=== PATIENT | female | born 1995 | race Caucasian/White ===

== ENCOUNTER 2017-11-06 18:01 | Emergency (ER) | payer OTHER ==
[~2017-11-06] VITALS: Ht 157.5 cm; Wt 121.6 kg
[~2017-11-06 18:01] MED LIST: AC500T PO; ACHD5005 PO; AMOX500C2 PO; BACL10TA PO; BUTA-249 PO; CEFD300C PO; CYCL10TA9 PO; DCS100C PO; DIPH25TA82 PO; FERR-57 PO; GUAI120L27 PO; HYDR-3812 PO; HYDR1TAB PO; IBP600T1 PO; IRON1TAB94 PO; METO-354 PO; ORTHOTRYCYCLINE; OXYC-12 PO; OXYC20TA63 PO; PRD20T PO; PREN1TAB39 PO; SULF1TAB35 PO
--- OUTSIDE RECORDS SUMMARY | 2017-11-06 18:07 | XMS REPORT | Continuity of Care Document ---
Author Author [facility] Address Unknown Phone Unavailable Allergies Active Description Code Type Severity Reaction Onset Reported/Identified Relationship to Patient Clinical Status Yes No Known Drug Allergies [id number] Drug Allergy Unknown N/A 04/03/2008 Yes [id number] (POLLEN EXTRACTS) [id number] (POLLEN EXTRACTS) Mild N/A Medications There is no data. Problems Date Dx Coded Attending Type Code Diagnosis Diagnosed By 10/29/2008 STANLEY CERVANTES APRN 462 PHARYNGITIS ACUTE 10/29/2008 STANLEY CERVANTES APRN 465.9 UPPER RESPIRATORY INFECTION 10/29/2008 462 PHARYNGITIS ACUTE 10/29/2008 465.9 UPPER RESPIRATORY INFECTION 10/29/2008 462 PHARYNGITIS ACUTE 10/29/2008 465.9 UPPER RESPIRATORY INFECTION 10/29/2008 462 PHARYNGITIS ACUTE 10/29/2008 465.9 UPPER RESPIRATORY INFECTION 10/29/2008 LUANN BENNETT APRN A 462 PHARYNGITIS ACUTE 10/29/2008 LUANN BENNETT APRN A 465.9 UPPER RESPIRATORY INFECTION 10/29/2008 PERDOMO DO, TRAVIS K 462 PHARYNGITIS ACUTE 10/29/2008 PERDOMO DO, TRAVIS K 465.9 UPPER RESPIRATORY INFECTION 10/29/2008 PERDOMO DO, TRAVIS K 462 PHARYNGITIS ACUTE 10/29/2008 PERDOMO DO, TRAVIS K 465.9 UPPER RESPIRATORY INFECTION 10/29/2008 PERDOMO DO, TRAVIS K 462 PHARYNGITIS ACUTE 10/29/2008 PERDOMO DO, TRAVIS K 465.9 UPPER RESPIRATORY INFECTION 10/29/2008 PERDOMO DO, TRAVIS K 462 PHARYNGITIS ACUTE 10/29/2008 PERDOMO DO, TRAVIS K 465.9 UPPER RESPIRATORY INFECTION 10/29/2008 HECTOR JETT MD 462 PHARYNGITIS ACUTE 10/29/2008 HECTOR JETT MD 465.9 UPPER RESPIRATORY INFECTION 10/29/2008 PERDOMO DO, TRAVIS K 462 PHARYNGITIS ACUTE 10/29/2008 PERDOMO DO, TRAVIS K 465.9 UPPER RESPIRATORY INFECTION 10/29/2008 PERDOMO DO, TRAVIS K 462 PHARYNGITIS ACUTE 10/29/2008 PERDOMO DO, TRAVIS K 465.9 UPPER RESPIRATORY INFECTION 10/29/2008 OSCAR TONG, ANNA N 462 PHARYNGITIS ACUTE 10/29/2008 OSCAR TONG, ANNA N 465.9 UPPER RESPIRATORY INFECTION 10/29/2008 OSCAR TONG, ANNA N 462 PHARYNGITIS ACUTE 10/29/2008 OSCAR TONG, ANNA N 465.9 UPPER RESPIRATORY INFECTION 10/29/2008 PERDOMO DO, TRAVIS K 462 PHARYNGITIS ACUTE 10/29/2008 PERDOMO DO, TRAVIS K 465.9 UPPER RESPIRATORY INFECTION 10/29/2008 OSCAR TONG, ANNA N 462 PHARYNGITIS ACUTE 10/29/2008 OSCAR TONG, ANNA N 465.9 UPPER RESPIRATORY INFECTION 10/29/2008 SABRINA STOKER ERECTOR, LUANN A 462 PHARYNGITIS ACUTE 10/29/2008 SABRINA STOKER ERECTOR, LUANN A 465.9 UPPER RESPIRATORY INFECTION 10/29/2008 SABRINA STOKER ERECTOR, LUANN A 462 PHARYNGITIS ACUTE 10/29/2008 SABRINA STOKER ERECTOR, LUANN A 465.9 UPPER RESPIRATORY INFECTION 10/29/2008 PERDOMO DO, TRAVIS K 462 PHARYNGITIS ACUTE 10/29/2008 PERDOMO DO, TRAVIS K 465.9 UPPER RESPIRATORY INFECTION 10/29/2008 PERDOMO DO, TRAVIS K 462 PHARYNGITIS ACUTE 10/29/2008 PERDOMO DO, TRAVIS K 465.9 UPPER RESPIRATORY INFECTION 10/29/2008 SIERRA STOKER ERECTOR, CHANG R 462 PHARYNGITIS ACUTE 10/29/2008 ESQUIVEL STOKER ERECTOR, CHANG R 465.9 UPPER RESPIRATORY INFECTION 10/29/2008 PERDOMO DO, TRAVIS K 462 PHARYNGITIS ACUTE 10/29/2008 PERDOMO DO, TRAVIS K 465.9 UPPER RESPIRATORY INFECTION 01/14/2009 STANLEY CERVANTES APRN V20.2 Preventive Medicine New Patient Evaluation Childhood -01/14/2009 V20.2 Preventive Medicine New Patient Evaluation Childhood -01/14/2009 V20.2 Preventive Medicine New Patient Evaluation Childhood -01/14/2009 V20.2 Preventive Medicine New Patient Evaluation Childhood -01/14/2009 LUANN BENNETT APRN V20.2 Preventive Medicine New Patient Evaluation Childhood -01/14/2009 TRAVIS PERDOMO DO K V20.2 Preventive Medicine New Patient Evaluation Childhood -01/14/2009 TRAVIS PERDOMO DO K V20.2 Preventive Medicine New Patient Evaluation Childhood 03-2901/14/2009 TRAVIS PERDOMO DO K V20.2 PREVENTIVE MEDICINE NEW PATIENT EVALUATION CHILDHOOD 03-2901/14/2009 TRAVIS PERDOMO DO K V20.2 PREVENTIVE MEDICINE NEW PATIENT EVALUATION CHILDHOOD 03-2901/14/2009 HECTOR JETT MD V20.2 PREVENTIVE MEDICINE NEW PATIENT EVALUATION CHILDHOOD 03-2901/14/2009 TRAVIS PERDOMO DO V20.2 PREVENTIVE MEDICINE NEW PATIENT EVALUATION CHILDHOOD 03-2901/14/2009 TRAVIS PREDOMO DO K V20.2 PREVENTIVE MEDICINE NEW PATIENT EVALUATION CHILDHOOD 03-2901/14/2009 ANNA MOORE MD V20.2 PREVENTIVE MEDICINE NEW PATIENT EVALUATION CHILDHOOD 03-2901/14/2009 ANNA MOORE MD V20.2 PREVENTIVE MEDICINE NEW PATIENT EVALUATION CHILDHOOD 03-2901/14/2009 TRAVIS PERDOMO DO K V20.2 PREVENTIVE MEDICINE NEW PATIENT EVALUATION CHILDHOOD 03-2901/14/2009 ANNA MOORE MD N V20.2 PREVENTIVE MEDICINE NEW PATIENT EVALUATION CHILDHOOD -01/14/2009 LUANN BENNETT APRN V20.2 PREVENTIVE MEDICINE NEW PATIENT EVALUATION CHILDHOOD 03-2901/14/2009 LUANN BENNETT APRN V20.2 PREVENTIVE MEDICINE NEW PATIENT EVALUATION CHILDHOOD 03-2901/14/2009 TRAVIS PERDOMO DO K V20.2 PREVENTIVE MEDICINE NEW PATIENT EVALUATION CHILDHOOD 03-2901/14/2009 TRAVIS PERDOMO DO K V20.2 PREVENTIVE MEDICINE NEW PATIENT EVALUATION CHILDHOOD 03-2901/14/2009 CHANG ESQUIVEL APRN V20.2 PREVENTIVE MEDICINE NEW PATIENT EVALUATION CHILDHOOD -01/14/2009 TRAVIS PERDOMO DO K V20.2 PREVENTIVE MEDICINE NEW PATIENT EVALUATION CHILDHOOD -06/16/2009 STANLEY CERVANTES APRN V25.01 CONTRACEPTION, ORAL / CONTROL 06/16/2009 HELEN STANLEY GREENBERG V72.3 GYNECOLOGICAL EXAMINATION 06/16/2009 V25.01 CONTRACEPTION , ORAL / CONTROL 06/16/2009 V72.3 GYNECOLOGICAL EXAMINATION 06/16/2009 V25.01 CONTRACEPTION , ORAL / CONTROL 06/16/2009 V72.3 GYNECOLOGICAL EXAMINATION 06/16/2009 V25.01 CONTRACEPTION , ORAL / CONTROL 06/16/2009 V72.3 GYNECOLOGICAL EXAMINATION 06/16/2009 SABRINACHUCHO GREENBERG, LUANN A V25.01 CONTRACEPTION, ORAL / CONTROL 06/16/2009 SABRINA APRN, LUANN A V72.3 GYNECOLOGICAL EXAMINATION 06/16/2009 PERDOMO DO TRAVIS K V25.01 CONTRACEPTION, ORAL / CONTROL 06/16/2009 PERDOMO DO, TRAVIS K V72.3 GYNECOLOGICAL EXAMINATION 06/16/2009 PERDOMO DO TRAVIS K V25.01 CONTRACEPTION, ORAL / CONTROL 06/16/2009 PERDOMO DO TRAVIS K V72.3 GYNECOLOGICAL EXAMINATION 06/16/2009 PERDOMO DO TRAVIS K V25.01 CONTRACEPTION, ORAL / CONTROL 06/16/2009 PERDOMO DO, TRAVIS K V72.3 GYNECOLOGICAL EXAMINATION 06/16/2009 PERDOMO DO, TRAVIS K V25.01 CONTRACEPTION, ORAL / CONTROL 06/16/2009 PERDOMO DO TRAVIS K V72.3 GYNECOLOGICAL EXAMINATION 06/16/2009 JOHNIE TONG, HECTOR V25.01 CONTRACEPTION, ORAL / CONTROL 06/16/2009 JOHNIE TONG, HECTOR V72.3 GYNECOLOGICAL EXAMINATION 06/16/2009 PERDOMO DO TRAVIS K V25.01 CONTRACEPTION, ORAL / CONTROL 06/16/2009 PERDOMO DO TRAVIS K V72.3 GYNECOLOGICAL EXAMINATION 06/16/2009 PERDOMO DO TRAVIS K V25.01 CONTRACEPTION, ORAL / CONTROL 06/16/2009 PERDOMO DO, TRAVIS K V72.3 GYNECOLOGICAL EXAMINATION 06/16/2009 OSCAR TONG, ANNA Cormier V25.01 CONTRACEPTION, ORAL / CONTROL 06/16/2009 OSCAR TONG, ANNA Cormier V72.3 GYNECOLOGICAL EXAMINATION 06/16/2009 ANNA MOORE MD V25.01 CONTRACEPTION, ORAL / CONTROL 06/16/2009 OSCAR TONG, ANNA Cormier V72.3 GYNECOLOGICAL EXAMINATION 06/16/2009 PERDOMO DO, TRAVIS K V25.01 CONTRACEPTION, ORAL / CONTROL 06/16/2009 PERDOMO DO, TRAVIS K V72.3 GYNECOLOGICAL EXAMINATION 06/16/2009 OSCAR TONG, ANNA Cormier V25.01 CONTRACEPTION, ORAL / CONTROL 06/16/2009 ANNA MOORE MD V72.3 GYNECOLOGICAL EXAMINATION 06/16/2009 SABRINA STOKER ERECTOR, LUANN A V25.01 CONTRACEPTION, ORAL / CONTROL 06/16/2009 SABRINA STOKER ERECTOR, LUANN A V72.3 GYNECOLOGICAL EXAMINATION 06/16/2009 SABRINA STOKER ERECTOR, LUANN A V25.01 CONTRACEPTION, ORAL / CONTROL 06/16/2009 SABRINA STOKER ERECTOR, LUANN A V72.3 GYNECOLOGICAL EXAMINATION 06/16/2009 PERDOMO DO, TRAVIS K V25.01 CONTRACEPTION, ORAL / CONTROL 06/16/2009 PERDOMO DO, TRAVIS K V72.3 GYNECOLOGICAL EXAMINATION 06/16/2009 PERDOMO DO, TRAVIS K V25.01 CONTRACEPTION, ORAL / CONTROL 06/16/2009 PERDOMO DO, TRAVIS K V72.3 GYNECOLOGICAL EXAMINATION 06/16/2009 SIERRA STOKER ERECTOR, CHANG R V25.01 CONTRACEPTION, ORAL / CONTROL 06/16/2009 SIERRA STOKER ERECTOR, CHANG R V72.3 GYNECOLOGICAL EXAMINATION 06/16/2009 PERDOMO DO, TRAVIS K V25.01 CONTRACEPTION, ORAL / CONTROL 06/16/2009 PERDOMO DO, TRAVIS K V72.3 GYNECOLOGICAL EXAMINATION 06/27/2010 STANLEY CERVANTES APRN V72.31 AUTOMOBILE RADIO REPAIRER EXAM, ROUTINE 06/27/2010 V72.31 AUTOMOBILE RADIO REPAIRER EXAM, ROUTINE 06/27/2010 V72.31 AUTOMOBILE RADIO REPAIRER EXAM, ROUTINE 06/27/2010 V72.31 AUTOMOBILE RADIO REPAIRER EXAM, ROUTINE 06/27/2010 SABRINA GREENBERG LUANN A V72.31 AUTOMOBILE RADIO REPAIRER EXAM, ROUTINE 06/27/2010 PERDOMO DO, TRAVIS K V72.31 AUTOMOBILE RADIO REPAIRER EXAM, ROUTINE 06/27/2010 PERDOMO DO, TRAVIS K V72.31 AUTOMOBILE RADIO REPAIRER EXAM, ROUTINE 06/27/2010 PERDOMO DO, TRAVIS K V72.31 AUTOMOBILE RADIO REPAIRER EXAM, ROUTINE 06/27/2010 PERDOMO DO, TRAVIS K V72.31 AUTOMOBILE RADIO REPAIRER EXAM, ROUTINE 06/27/2010 HECTOR JETT MD V72.31 AUTOMOBILE RADIO REPAIRER EXAM, ROUTINE 06/27/2010 PERDOMO DO TRAVIS K V72.31 AUTOMOBILE RADIO REPAIRER EXAM, ROUTINE 06/27/2010 PERDOMO DO, TRAVIS K V72.31 AUTOMOBILE RADIO REPAIRER EXAM, ROUTINE 06/27/2010 ANNA MOORE MD V72.31 AUTOMOBILE RADIO REPAIRER EXAM, ROUTINE 06/27/2010 ANNA MOORE MD V72.31 AUTOMOBILE RADIO REPAIRER EXAM, ROUTINE 06/27/2010 PERDOMO DO TRAVIS K V72.31 AUTOMOBILE RADIO REPAIRER EXAM, ROUTINE 06/27/2010 ANNA MOORE MD V72.31 AUTOMOBILE RADIO REPAIRER EXAM, ROUTINE 06/27/2010 SABRINA STOKER ERECTORDANNY CormierIDI A V72.31 AUTOMOBILE RADIO REPAIRER EXAM, ROUTINE 06/27/2010 SABRINA APRN, LUANN A V72.31 AUTOMOBILE RADIO REPAIRER EXAM, ROUTINE 06/27/2010 PERDOMO DO TRAVIS K V72.31 AUTOMOBILE RADIO REPAIRER EXAM, ROUTINE 06/27/2010 PERDOMO DO, TRAVIS K V72.31 AUTOMOBILE RADIO REPAIRER EXAM, ROUTINE 06/27/2010 CHANG ESQUIVEL APRN V72.31 AUTOMOBILE RADIO REPAIRER EXAM, ROUTINE 06/27/2010 PERDOMO DO TRAVIS K V72.31 AUTOMOBILE RADIO REPAIRER EXAM, ROUTINE 03/29/2011 STANLEY CERVANTES APRN S V74.1 TB SCREENING 03/29/2011 V74.1 TB SCREENING 03/29/2011 V74.1 TB SCREENING 03/29/2011 V74.1 TB SCREENING 03/29/2011 SABRINA GREENBERG, LUANN A V74.1 TB SCREENING 03/29/2011 PERDOMO DO, TRAVIS K V74.1 TB SCREENING 03/29/2011 PERDOMO DO, TRAVIS K V74.1 TB SCREENING 03/29/2011 PERDOMO DO, TRAVIS K V74.1 TB SCREENING 03/29/2011 PERDOMO DO, TRAVIS K V74.1 TB SCREENING 03/29/2011 HECTOR JETT MD V74.1 TB SCREENING 03/29/2011 PERDOMO DO, TRAVIS K V74.1 TB SCREENING 03/29/2011 PERDOMO DO, TRAVIS K V74.1 TB SCREENING 03/29/2011 ANNA MOORE MD V74.1 TB SCREENING 03/29/2011 ANNA MOORE MD V74.1 TB SCREENING 03/29/2011 PERDOMO DO, TRAVIS K V74.1 TB SCREENING 03/29/2011 NANA MOORE MD V74.1 TB SCREENING 03/29/2011 SABRINA STOKER ERECTOR, ULANN A V74.1 TB SCREENING 03/29/2011 SABRINA STOKER ERECTOR, LUANN A V74.1 TB SCREENING 03/29/2011 PERDOMO DO, TRAVIS K V74.1 TB SCREENING 03/29/2011 PERDOMO DO, TRAVIS K V74.1 TB SCREENING 03/29/2011 SIERRA GREENBERGBILLCHANG R V74.1 TB SCREENING 03/29/2011 PERDOMO DO, TRAVIS K V74.1 TB SCREENING 05/14/2012 HELEN GREENBERG, STANLEY S V22.0 , NORMAL FIRST 05/14/2012 V22.0 , NORMAL FIRST 05/14/2012 V22.0 , NORMAL FIRST 05/14/2012 V22.0 , NORMAL FIRST 05/14/2012 SABRINA STOKER ERECTOR, LUANN A V22.0 , NORMAL FIRST 05/14/2012 PERDOMO DO, TRAVIS K V22.0 , NORMAL FIRST 05/14/2012 PERDOMO DO, TRAVIS K V22.0 , NORMAL FIRST 05/14/2012 PERDOMO DO, TRAVIS K V22.0 , NORMAL FIRST 05/14/2012 PERDOMO DO, TRAVIS K V22.0 , NORMAL FIRST 05/14/2012 JOHNIE TONG, HECTOR V22.0 , NORMAL FIRST 05/14/2012 PERDOMO DO, TRAVIS K V22.0 , NORMAL FIRST 05/14/2012 PERDOMO DO, TRAVIS K V22.0 , NORMAL FIRST 05/14/2012 ANNA MOORE MD N V22.0 , NORMAL FIRST 05/14/2012 ANNA MOORE MD N V22.0 , NORMAL FIRST 05/14/2012 PERDOMO DO, TRAVIS K V22.0 , NORMAL FIRST 05/14/2012 ANNA MOORE MD N V22.0 , NORMAL FIRST 05/14/2012 SABRINA STOKER ERECTOR, LUANN A V22.0 , NORMAL FIRST 05/14/2012 SABRINA STOKER ERECTOR, LUANN A V22.0 , NORMAL FIRST 05/14/2012 PERDOMO DO, TRAVIS K V22.0 , NORMAL FIRST 05/14/2012 PERDOMO DO, TRAVIS K V22.0 , NORMAL FIRST 05/14/2012 SIERRA GREENBERG CHANG R V22.0 , NORMAL FIRST 05/14/2012 PERDOMO DO, TRAVIS K V22.0 , NORMAL FIRST 05/24/2012 HELEN STOKER ERECTOR STANLEY S 634.90 SPONTANEOUS UNSPECIFIED WITHOUT COMPLICATION 05/24/2012 HELEN STOKER ERECTOR, STANLEY S V25.02 GENERAL COUNSELING ON INITIATION OF OTHER CONTRACEPTIVE MEASURES 05/24/2012 634.90 SPONTANEOUS UNSPECIFIED WITHOUT COMPLICATION 05/24/2012 V25.02 GENERAL COUNSELING ON INITIATION OF OTHER CONTRACEPTIVE MEASURES 05/24/2012 634.90 SPONTANEOUS UNSPECIFIED WITHOUT COMPLICATION 05/24/2012 V25.02 GENERAL COUNSELING ON INITIATION OF OTHER CONTRACEPTIVE MEASURES 05/24/2012 634.90 SPONTANEOUS UNSPECIFIED WITHOUT COMPLICATION 05/24/2012 V25.02 GENERAL COUNSELING ON INITIATION OF OTHER CONTRACEPTIVE MEASURES 05/24/2012 SABRINA STOKER ERECTOR LUANN A 634.90 SPONTANEOUS UNSPECIFIED WITHOUT COMPLICATION 05/24/2012 SABRINA STOKER ERECTOR LUANN A V25.02 GENERAL COUNSELING ON INITIATION OF OTHER CONTRACEPTIVE MEASURES 05/24/2012 PERDOMO DO, TRAVIS K 634.90 SPONTANEOUS UNSPECIFIED WITHOUT COMPLICATION 05/24/2012 PERDOMO DO, TRAVIS K V25.02 GENERAL COUNSELING ON INITIATION OF OTHER CONTRACEPTIVE MEASURES 05/24/2012 PERDOMO DO, TRAVIS K 634.90 SPONTANEOUS UNSPECIFIED WITHOUT COMPLICATION 05/24/2012 PERDOMO DO, TRAVIS K V25.02 GENERAL COUNSELING ON INITIATION OF OTHER CONTRACEPTIVE MEASURES 05/24/2012 PERDOMO DO, TRAVIS K 634.90 SPONTANEOUS UNSPECIFIED WITHOUT COMPLICATION 05/24/2012 PERDOMO DO TRAVIS K V25.02 GENERAL COUNSELING ON INITIATION OF OTHER CONTRACEPTIVE MEASURES 05/24/2012 PERDOMO DO, TRAVIS K 634.90 SPONTANEOUS UNSPECIFIED WITHOUT COMPLICATION 05/24/2012 PERDOMO DO TRAVIS K V25.02 GENERAL COUNSELING ON INITIATION OF OTHER CONTRACEPTIVE MEASURES 05/24/2012 HECTOR JETT MD 634.90 SPONTANEOUS UNSPECIFIED WITHOUT COMPLICATION 05/24/2012 HECTOR JETT MD V25.02 GENERAL COUNSELING ON INITIATION OF OTHER CONTRACEPTIVE MEASURES 05/24/2012 PERDOMO DO TRAVIS K 634.90 SPONTANEOUS UNSPECIFIED WITHOUT COMPLICATION 05/24/2012 LEANNE CANTOR TRAVIS K V25.02 GENERAL COUNSELING ON INITIATION OF OTHER CONTRACEPTIVE MEASURES 05/24/2012 TRAVIS PERDOMO DO 634.90 SPONTANEOUS UNSPECIFIED WITHOUT COMPLICATION 05/24/2012 YANIRA PERDOMO DOA K V25.02 GENERAL COUNSELING ON INITIATION OF OTHER CONTRACEPTIVE MEASURES 05/24/2012 ANNA MOORE MD 634.90 SPONTANEOUS UNSPECIFIED WITHOUT COMPLICATION 05/24/2012 ANNA MOORE MD V25.02 GENERAL COUNSELING ON INITIATION OF OTHER CONTRACEPTIVE MEASURES 05/24/2012 ANNA MOORE MD 634.90 SPONTANEOUS UNSPECIFIED WITHOUT COMPLICATION 05/24/2012 ANNA MOORE MD V25.02 GENERAL COUNSELING ON INITIATION OF OTHER CONTRACEPTIVE MEASURES 05/24/2012 TRAVIS PERDOMO DO 634.90 SPONTANEOUS UNSPECIFIED WITHOUT COMPLICATION 05/24/2012 TRAVIS PERDOMO DO K V25.02 GENERAL COUNSELING ON INITIATION OF OTHER CONTRACEPTIVE MEASURES 05/24/2012 ANNA MOORE MD 634.90 SPONTANEOUS UNSPECIFIED WITHOUT COMPLICATION 05/24/2012 ANNA MOORE MD V25.02 GENERAL COUNSELING ON INITIATION OF OTHER CONTRACEPTIVE MEASURES 05/24/2012 SABRINA STOKER ERECTOR, LUANN A 634.90 SPONTANEOUS UNSPECIFIED WITHOUT COMPLICATION 05/24/2012 SABRINA STOKER ERECTOR, LUANN A V25.02 GENERAL COUNSELING ON INITIATION OF OTHER CONTRACEPTIVE MEASURES 05/24/2012 SABRINA STOKER ERECTOR, LUANN A 634.90 SPONTANEOUS UNSPECIFIED WITHOUT COMPLICATION 05/24/2012 SABRINA STOKER ERECTOR, LUANN A V25.02 GENERAL COUNSELING ON INITIATION OF OTHER CONTRACEPTIVE MEASURES 05/24/2012 YANIRA PERDOMO DOA K 634.90 SPONTANEOUS UNSPECIFIED WITHOUT COMPLICATION 05/24/2012 YANIRA PERDOMO DOA K V25.02 GENERAL COUNSELING ON INITIATION OF OTHER CONTRACEPTIVE MEASURES 05/24/2012 LEANNE CANTOR TRAVIS K 634.90 SPONTANEOUS UNSPECIFIED WITHOUT COMPLICATION 05/24/2012 YANIRA PERDOMO DOA K V25.02 GENERAL COUNSELING ON INITIATION OF OTHER CONTRACEPTIVE MEASURES 05/24/2012 SIERRA STOKER ERECTOR, CHANG R 634.90 SPONTANEOUS UNSPECIFIED WITHOUT COMPLICATION 05/24/2012 ESQUIVEL STOKER ERECTOR, CHANG R V25.02 GENERAL COUNSELING ON INITIATION OF OTHER CONTRACEPTIVE MEASURES 05/24/2012 YANIRA PERDOMO DOA K 634.90 SPONTANEOUS UNSPECIFIED WITHOUT COMPLICATION 05/24/2012 TRAVIS PERDOMO DO K V25.02 GENERAL COUNSELING ON INITIATION OF OTHER CONTRACEPTIVE MEASURES 01/23/2013 STANLEY CERVANTES APRN 787.01 NAUSEA WITH VOMITING 01/23/2013 STANLEY CERVANTES APRN 789.01 ABDOMINAL PAIN RIGHT UPPER QUADRANT 01/23/2013 787.01 NAUSEA WITH VOMITING 01/23/2013 789.01 ABDOMINAL PAIN RIGHT UPPER QUADRANT 01/23/2013 787.01 NAUSEA WITH VOMITING 01/23/2013 789.01 ABDOMINAL PAIN RIGHT UPPER QUADRANT 01/23/2013 787.01 NAUSEA WITH VOMITING 01/23/2013 789.01 ABDOMINAL PAIN RIGHT UPPER QUADRANT 01/23/2013 LUANN BENNETT APRN A 787.01 NAUSEA WITH VOMITING 01/23/2013 LUANN BENNETT APRN A 789.01 ABDOMINAL PAIN RIGHT UPPER QUADRANT 01/23/2013 PERDOMO DO, TRAVIS K 787.01 NAUSEA WITH VOMITING 01/23/2013 PERDOMO DO, TRAVIS K 789.01 ABDOMINAL PAIN RIGHT UPPER QUADRANT 01/23/2013 PERDOMO DO, TRAVIS K 787.01 NAUSEA WITH VOMITING 01/23/2013 PERDOMO DO, TRAVIS K 789.01 ABDOMINAL PAIN RIGHT UPPER QUADRANT 01/23/2013 PERDOMO DO, TRAVIS K 787.01 NAUSEA WITH VOMITING 01/23/2013 PERDOMO DO, TRAVIS K 789.01 ABDOMINAL PAIN RIGHT UPPER QUADRANT 01/23/2013 PERDOMO DO, TRAVIS K 787.01 NAUSEA WITH VOMITING 01/23/2013 PERDOMO DO, TRAVIS K 789.01 ABDOMINAL PAIN RIGHT UPPER QUADRANT 01/23/2013 HECTOR JETT MD 787.01 NAUSEA WITH VOMITING 01/23/2013 HECTOR JETT MD 789.01 ABDOMINAL PAIN RIGHT UPPER QUADRANT 01/23/2013 PERDOMO DO, TRAVIS K 787.01 NAUSEA WITH VOMITING 01/23/2013 PERDOMO DO, TRAVIS K 789.01 ABDOMINAL PAIN RIGHT UPPER QUADRANT 01/23/2013 PERDOMO DO, TRAVIS K 787.01 NAUSEA WITH VOMITING 01/23/2013 PERDOMO DO, TRAVIS K 789.01 ABDOMINAL PAIN RIGHT UPPER QUADRANT 01/23/2013 ANNA MOORE MD 787.01 NAUSEA WITH VOMITING 01/23/2013 ANNA MOORE MD 789.01 ABDOMINAL PAIN RIGHT UPPER QUADRANT 01/23/2013 ANNA MOORE MD N 787.01 NAUSEA WITH VOMITING 01/23/2013 ANNA MOORE MD N 789.01 ABDOMINAL PAIN RIGHT UPPER QUADRANT 01/23/2013 LEANNE CANTOR TRAVIS K 787.01 NAUSEA WITH VOMITING 01/23/2013 PERDOMO DO TRAVIS K 789.01 ABDOMINAL PAIN RIGHT UPPER QUADRANT 01/23/2013 ANNA MOORE MD N 787.01 NAUSEA WITH VOMITING 01/23/2013 ANNA MOORE MD 789.01 ABDOMINAL PAIN RIGHT UPPER QUADRANT 01/23/2013 SABRINA GREENBEGR LUANN A 787.01 NAUSEA WITH VOMITING 01/23/2013 SABRINACasa GREENBERG LUANN A 789.01 ABDOMINAL PAIN RIGHT UPPER QUADRANT 01/23/2013 DANNY BENNETT APRNIDI A 787.01 NAUSEA WITH VOMITING 01/23/2013 DANNY BENNETT APRNIDI A 789.01 ABDOMINAL PAIN RIGHT UPPER QUADRANT 01/23/2013 LEANNE CANTOR TRAVIS K 787.01 NAUSEA WITH VOMITING 01/23/2013 YANIRA PERDOMO DOA K 789.01 ABDOMINAL PAIN RIGHT UPPER QUADRANT 01/23/2013 YANIRA PERDOMO DOA K 787.01 NAUSEA WITH VOMITING 01/23/2013 LEANNE CANTOR TRAVIS K 789.01 ABDOMINAL PAIN RIGHT UPPER QUADRANT 01/23/2013 BILL ESQUIVEL APRNRICIA R 787.01 NAUSEA WITH VOMITING 01/23/2013 BILL ESQUIVEL APRNRICIA R 789.01 ABDOMINAL PAIN RIGHT UPPER QUADRANT 01/23/2013 LEANNE CANTOR TRAVIS K 787.01 NAUSEA WITH VOMITING 01/23/2013 YANIRA PERDOMO DOA K 789.01 ABDOMINAL PAIN RIGHT UPPER QUADRANT 06/17/2013 649.13 OBESITY COMPLICATING CHILDBIRTH OR THE PUERPERIUM ANTEPARTUM CONDITION OR COMPLICATION 06/17/2013 V23.7 , HIGH RISK W/ INSUFFICIENT CARE 06/17/2013 649.13 OBESITY COMPLICATING CHILDBIRTH OR THE PUERPERIUM ANTEPARTUM CONDITION OR COMPLICATION 06/17/2013 V23.7 , HIGH RISK W/ INSUFFICIENT CARE 06/17/2013 649.13 OBESITY COMPLICATING CHILDBIRTH OR THE PUERPERIUM ANTEPARTUM CONDITION OR COMPLICATION 06/17/2013 V23.7 , HIGH RISK W/ INSUFFICIENT CARE 06/17/2013 LUANN BENNETT APRN 649.13 OBESITY COMPLICATING CHILDBIRTH OR THE PUERPERIUM ANTEPARTUM CONDITION OR COMPLICATION 06/17/2013 LUANN BENNETT APRN V23.7 , HIGH RISK W/ INSUFFICIENT CARE 06/17/2013 TRAVIS PERDOMO DO 649.13 OBESITY COMPLICATING CHILDBIRTH OR THE PUERPERIUM ANTEPARTUM CONDITION OR COMPLICATION 06/17/2013 TRAVIS PERDOMO DO K V23.7 , HIGH RISK W/ INSUFFICIENT CARE 06/17/2013 TRAVIS PERDOMO DO 649.13 OBESITY COMPLICATING CHILDBIRTH OR THE PUERPERIUM ANTEPARTUM CONDITION OR COMPLICATION 06/17/2013 YANIRA PERDOMO DOA K V23.7 , HIGH RISK W/ INSUFFICIENT CARE 06/17/2013 TRAVIS PERDOMO DO 649.13 OBESITY COMPLICATING CHILDBIRTH OR THE PUERPERIUM ANTEPARTUM CONDITION OR COMPLICATION 06/17/2013 TRAVIS PERDOMO DO K V23.7 , HIGH RISK W/ INSUFFICIENT CARE 06/17/2013 TRAVIS PERDOMO DO 649.13 OBESITY COMPLICATING CHILDBIRTH OR THE PUERPERIUM ANTEPARTUM CONDITION OR COMPLICATION 06/17/2013 TRAVIS PERDOMO DO K V23.7 , HIGH RISK W/ INSUFFICIENT CARE 06/17/2013 HECTOR JETT MD 649.13 OBESITY COMPLICATING CHILDBIRTH OR THE PUERPERIUM ANTEPARTUM CONDITION OR COMPLICATION 06/17/2013 HECTOR JETT MD V23.7 , HIGH RISK W/ INSUFFICIENT CARE 06/17/2013 TRAVIS PERDOMO DO 649.13 OBESITY COMPLICATING CHILDBIRTH OR THE PUERPERIUM ANTEPARTUM CONDITION OR COMPLICATION 06/17/2013 TRAVIS PERDOMO DO K V23.7 , HIGH RISK W/ INSUFFICIENT CARE 06/17/2013 TRAVIS PERDOMO DO 649.13 OBESITY COMPLICATING CHILDBIRTH OR THE PUERPERIUM ANTEPARTUM CONDITION OR COMPLICATION 06/17/2013 TRAVIS PERDOMO DO K V23.7 , HIGH RISK W/ INSUFFICIENT CARE 06/17/2013 ANNA MOORE MD 649.13 OBESITY COMPLICATING CHILDBIRTH OR THE PUERPERIUM ANTEPARTUM CONDITION OR COMPLICATION 06/17/2013 OSCAR MD, ANNA N V23.7 , HIGH RISK W/ INSUFFICIENT CARE 06/17/2013 OSCAR TONG, ANNA N 649.13 OBESITY COMPLICATING CHILDBIRTH OR THE PUERPERIUM ANTEPARTUM CONDITION OR COMPLICATION 06/17/2013 ANNA MOORE MD N V23.7 , HIGH RISK W/ INSUFFICIENT CARE 06/17/2013 TRAVIS PERDOMO DO 649.13 OBESITY COMPLICATING CHILDBIRTH OR THE PUERPERIUM ANTEPARTUM CONDITION OR COMPLICATION 06/17/2013 TRAVIS PERDOMO DO K V23.7 , HIGH RISK W/ INSUFFICIENT CARE 06/17/2013 ANNA MOORE MD N 649.13 OBESITY COMPLICATING CHILDBIRTH OR THE PUERPERIUM ANTEPARTUM CONDITION OR COMPLICATION 06/17/2013 ANNA MOORE MD V23.7 , HIGH RISK W/ INSUFFICIENT CARE 06/17/2013 LUANN BENNETT APRN 649.13 OBESITY COMPLICATING CHILDBIRTH OR THE PUERPERIUM ANTEPARTUM CONDITION OR COMPLICATION 06/17/2013 LUANN BENNETT APRN A V23.7 , HIGH RISK W/ INSUFFICIENT CARE 06/17/2013 LAUNN BENNETT APRN A 649.13 OBESITY COMPLICATING CHILDBIRTH OR THE PUERPERIUM ANTEPARTUM CONDITION OR COMPLICATION 06/17/2013 LUANN BENNETT APRN A V23.7 , HIGH RISK W/ INSUFFICIENT CARE 06/17/2013 TRAVIS PERDOMO DO 649.13 OBESITY COMPLICATING CHILDBIRTH OR THE PUERPERIUM ANTEPARTUM CONDITION OR COMPLICATION 06/17/2013 TRAVIS PERDOMO DO V23.7 , HIGH RISK W/ INSUFFICIENT CARE 06/17/2013 TRAVIS PERDOMO DO K 649.13 OBESITY COMPLICATING CHILDBIRTH OR THE PUERPERIUM ANTEPARTUM CONDITION OR COMPLICATION 06/17/2013 TRAVIS PERDOMO DO K V23.7 , HIGH RISK W/ INSUFFICIENT CARE 06/17/2013 CHANG ESQUIVEL APRN 649.13 OBESITY COMPLICATING CHILDBIRTH OR THE PUERPERIUM ANTEPARTUM CONDITION OR COMPLICATION 06/17/2013 CHANG ESQUIVEL APRN R V23.7 , HIGH RISK W/ INSUFFICIENT CARE 06/17/2013 TRAVIS PERDOMO DO 649.13 OBESITY COMPLICATING CHILDBIRTH OR THE PUERPERIUM ANTEPARTUM CONDITION OR COMPLICATION 06/17/2013 PERDOMO DO, TRAVIS K V23.7 , HIGH RISK W/ INSUFFICIENT CARE 07/01/2013 V74.5 STD SCREEN 07/01/2013 V74.5 STD SCREEN 07/01/2013 V74.5 STD SCREEN 07/01/2013 SABRINA GREENBERG, LUANN A V74.5 STD SCREEN 07/01/2013 PERDOMO DO, TRAVIS K V74.5 STD SCREEN 07/01/2013 PERDOMO DO, TRAVIS K V74.5 STD SCREEN 07/01/2013 PERDOMO DO, TRAVIS K V74.5 STD SCREEN 07/01/2013 PERDOMO DO, TRAVIS K V74.5 STD SCREEN 07/01/2013 JOHNIE TONG, HECTOR V74.5 STD SCREEN 07/01/2013 PERDOMO DO, TRAVIS K V74.5 STD SCREEN 07/01/2013 PERDOMO DO, TRAVIS K V74.5 STD SCREEN 07/01/2013 OSCAR TONG, ANNA N V74.5 STD SCREEN 07/01/2013 OSCAR TONG, ANNA N V74.5 STD SCREEN 07/01/2013 PERDOMO DO, TRAVIS K V74.5 STD SCREEN 07/01/2013 OSCAR TONG, ANNA Cormier V74.5 STD SCREEN 07/01/2013 DANNY BENNETT APRNIDI A V74.5 STD SCREEN 07/01/2013 DANNY BENNETT APRNIDI A V74.5 STD SCREEN 07/01/2013 PERDOMO DO, TRAVIS K V74.5 STD SCREEN 07/01/2013 PERDOMO DO, TRAVIS K V74.5 STD SCREEN 07/01/2013 CHANG ESQUIVEL APRN V74.5 STD SCREEN 07/01/2013 PERDOMO DO, TRAVIS K V74.5 STD SCREEN 07/14/2013 789.03 ABDOMINAL PAIN RIGHT LOWER QUADRANT 07/14/2013 789.03 ABDOMINAL PAIN RIGHT LOWER QUADRANT 07/14/2013 LUANN BENNETT APRN A 789.03 ABDOMINAL PAIN RIGHT LOWER QUADRANT 07/14/2013 PERDOMO DO, TRAVIS K 789.03 ABDOMINAL PAIN RIGHT LOWER QUADRANT 07/14/2013 PERDOOM DO, TRAVIS K 789.03 ABDOMINAL PAIN RIGHT LOWER QUADRANT 07/14/2013 PERDOMO DO, TRAVIS K 789.03 ABDOMINAL PAIN RIGHT LOWER QUADRANT 07/14/2013 PERDOMO DO, TRAVIS K 789.03 ABDOMINAL PAIN RIGHT LOWER QUADRANT 07/14/2013 JOHNIE TONG, HECTOR 789.03 ABDOMINAL PAIN RIGHT LOWER QUADRANT 07/14/2013 PERDOMO DO, TRAVIS K 789.03 ABDOMINAL PAIN RIGHT LOWER QUADRANT 07/14/2013 PERDOMO DO, TRAVIS K 789.03 ABDOMINAL PAIN RIGHT LOWER QUADRANT 07/14/2013 OSCAR TONG, ANNA N 789.03 ABDOMINAL PAIN RIGHT LOWER QUADRANT 07/14/2013 OSCAR TONG, ANNA N 789.03 ABDOMINAL PAIN RIGHT LOWER QUADRANT 07/14/2013 PERDOMO DO, TRAVIS K 789.03 ABDOMINAL PAIN RIGHT LOWER QUADRANT 07/14/2013 OSCAR TONG, ANNA Cormier 789.03 ABDOMINAL PAIN RIGHT LOWER QUADRANT 07/14/2013 SABRINA STOKER ERECTOR, LUANN A 789.03 ABDOMINAL PAIN RIGHT LOWER QUADRANT 07/14/2013 SABRINA STOKER ERECTOR, LUANN A 789.03 ABDOMINAL PAIN RIGHT LOWER QUADRANT 07/14/2013 PERDOMO DO, TRAVIS K 789.03 ABDOMINAL PAIN RIGHT LOWER QUADRANT 07/14/2013 PERDOMO DO, TRAVIS K 789.03 ABDOMINAL PAIN RIGHT LOWER QUADRANT 07/14/2013 SIERRA GREENBERG, CHANG R 789.03 ABDOMINAL PAIN RIGHT LOWER QUADRANT 07/14/2013 PERDOMO DO, TRAVIS K 789.03 ABDOMINAL PAIN RIGHT LOWER QUADRANT 07/15/2013 V22.1 , NORMAL OTHER 07/15/2013 V22.1 , NORMAL OTHER 07/15/2013 SABRINA CABEZASN, LUANN A V22.1 , NORMAL OTHER 07/15/2013 PERDOMO DO, TRAVIS K V22.1 , NORMAL OTHER 07/15/2013 PERDOMO DO, TRAVIS K V22.1 , NORMAL OTHER 07/15/2013 PERDOMO DO, TRAVIS K V22.1 , NORMAL OTHER 07/15/2013 PERDOMO DO, TRAVIS K V22.1 , NORMAL OTHER 07/15/2013 HECTOR JETT MD V22.1 , NORMAL OTHER 07/15/2013 PERDOMO DO, TRAVIS K V22.1 , NORMAL OTHER 07/15/2013 PERDOMO DO, TRAVIS K V22.1 , NORMAL OTHER 07/15/2013 OSCAR TONG, ANNA N V22.1 , NORMAL OTHER 07/15/2013 OSCAR TONG, ANNA Cormier V22.1 , NORMAL OTHER 07/15/2013 PERDOMO DO, TRAVIS K V22.1 , NORMAL OTHER 07/15/2013 OSCAR TONG, ANNA Cormier V22.1 , NORMAL OTHER 07/15/2013 SABRINA STOKER ERECTOR, LUANN A V22.1 , NORMAL OTHER 07/15/2013 SABRINA STOKER ERECTOR, LUANN A V22.1 , NORMAL OTHER 07/15/2013 PERDOMO DO, TRAVIS K V22.1 , NORMAL OTHER 07/15/2013 PERDOMO DO, TRAVIS K V22.1 , NORMAL OTHER 07/15/2013 ESQUIVEL STOKER ERECTOR, CHANG R V22.1 , NORMAL OTHER 07/15/2013 PERDOMO DO, TRAVIS K V22.1 , NORMAL OTHER 08/12/2013 PERDOMO DO, TRAVIS K V04.81 FLU SHOT 08/12/2013 PERDOMO DO, TRAVIS K V06.1 TDAP DX 08/12/2013 PERDOMO DO, TRAVIS K V04.81 FLU SHOT 08/12/2013 PERDOMO DO, TRAVIS K V06.1 TDAP DX 08/12/2013 PERDOMO DO, TRAVIS K V04.81 FLU SHOT 08/12/2013 PERDOMO DO, TRAVIS K V06.1 TDAP DX 08/12/2013 PERDOMO DO, TRAVIS K V04.81 FLU SHOT 08/12/2013 PERDOMO DO, TRAVIS K V06.1 TDAP DX 08/12/2013 JOHNIE TONG, HECTOR V04.81 FLU SHOT 08/12/2013 ORAL JETT MDISTA V06.1 TDAP DX 08/12/2013 PERDOMO DO, TRAVIS K V04.81 FLU SHOT 08/12/2013 PERDOMO DO, TRAVIS K V06.1 TDAP DX 08/12/2013 PERDOMO DO, TRAVIS K V04.81 FLU SHOT 08/12/2013 PERDOMO DO, TRAVIS K V06.1 TDAP DX 08/12/2013 OSCAR TONG, ANNA Cormier V04.81 FLU SHOT 08/12/2013 OSCAR TONG, ANNA Cormier V06.1 TDAP DX 08/12/2013 OSCAR TONG, ANNA Cormier V04.81 FLU SHOT 08/12/2013 OSCAR TONG, ANNA Cormier V06.1 TDAP DX 08/12/2013 PERDOMO DO, TRAVIS K V04.81 FLU SHOT 08/12/2013 PERDOMO DO, TRAVIS K V06.1 TDAP DX 08/12/2013 OSCAR TONG, ANNA N V04.81 FLU SHOT 08/12/2013 OSCAR TONG, ANNA Cormier V06.1 TDAP DX 08/12/2013 SABRINA STOKER ERECTOR, LUANN A V04.81 FLU SHOT 08/12/2013 SABRINA STOKER ERECTOR, LUANN A V06.1 TDAP DX 08/12/2013 SABRINA STOKER ERECTOR, LUANN A V04.81 FLU SHOT 08/12/2013 SABRINA STOKER ERECTOR, LUANN A V06.1 TDAP DX 08/12/2013 PERDOMO DO, TRAVIS K V04.81 FLU SHOT 08/12/2013 PERDOMO DO, TRAVIS K V06.1 TDAP DX 08/12/2013 PERDOMO DO, TRAVIS K V04.81 FLU SHOT 08/12/2013 PERDOMO DO, TRAVIS K V06.1 TDAP DX 08/12/2013 ESQUIVEL STOKER ERECTOR, CHANG R V04.81 FLU SHOT 08/12/2013 ESQUIVEL STOKER ERECTOR, CHANG R V06.1 TDAP DX 08/12/2013 PERDOMO DO, TRAVIS K V04.81 FLU SHOT 08/12/2013 PERDOMO DO, TRAVIS K V06.1 TDAP DX 09/23/2013 JOHNIE TONG, HECTOR V65.11 NEW MOMMY VISIT 09/23/2013 PERDOMO DOTRAVIS V65.11 NEW MOMMY VISIT 09/23/2013 PERDOMO DO, TRAVIS K V65.11 NEW MOMMY VISIT 09/23/2013 OSCAR TONG, ANNA Cormier V65.11 NEW MOMMY VISIT 09/23/2013 OSCAR TONG, ANNA Cormier V65.11 NEW MOMMY VISIT 09/23/2013 TRAVIS PERDOMO DO V65.11 NEW MOMMY VISIT 09/23/2013 OSCAR TONG, ANNA Cormier V65.11 NEW MOMMY VISIT 09/23/2013 SABRINA STOKER ERECTOR, LUANN A V65.11 NEW MOMMY VISIT 09/23/2013 SABRINA STOKER ERECTOR, LUANN A V65.11 NEW MOMMY VISIT 09/23/2013 TRAVIS PERDOMO DO V65.11 NEW MOMMY VISIT 09/23/2013 TRAVIS PERDOMO DO V65.11 NEW MOMMY VISIT 09/23/2013 CHANG ESQUIVEL APRN V65.11 NEW MOMMY VISIT 09/23/2013 TRAVIS PERDOMO DO V65.11 NEW MOMMY VISIT 09/30/2013 TRAVIS PERDOMO DO K 642.90 COMPL OF - HTN/PIH 09/30/2013 TRAVIS PERDOMO DO K 642.90 COMPL OF - HTN/PIH 09/30/2013 ANNA MOORE MD N 642.90 COMPL OF - HTN/PIH 09/30/2013 ANNA MOORE MD N 642.90 COMPL OF - HTN/PIH 09/30/2013 TRAVIS PERDOMO DO K 642.90 COMPL OF - HTN/PIH 09/30/2013 ANNA MOORE MD N 642.90 COMPL OF - HTN/PIH 09/30/2013 LUANN BENNETT APRN A 642.90 COMPL OF - HTN/PIH 09/30/2013 LUANN BENNETT APRN A 642.90 COMPL OF - HTN/PIH 09/30/2013 TRAVIS PERDOMO DO K 642.90 COMPL OF - HTN/PIH 09/30/2013 TRAVIS PERDOMO DO K 642.90 COMPL OF - HTN/PIH 09/30/2013 CHANG ESQUIVEL APRN 642.90 COMPL OF - HTN/PIH 09/30/2013 TRAVIS PERDOMO DO K 642.90 COMPL OF - HTN/PIH 10/30/2013 TRAVIS PERDOMO DO V25.09 CONTRACEPTIVE COUNSELING - GENERAL 10/30/2013 ANNA MOORE MD N V25.09 CONTRACEPTIVE COUNSELING - GENERAL 10/30/2013 LUANN BENNETT APRN A V25.09 CONTRACEPTIVE COUNSELING - GENERAL 10/30/2013 LUANN BENNETT APRN A V25.09 CONTRACEPTIVE COUNSELING - GENERAL 10/30/2013 TRAVIS PERDOMO DO V25.09 CONTRACEPTIVE COUNSELING - GENERAL 10/30/2013 TRAVIS PERDOMO DO V25.09 CONTRACEPTIVE COUNSELING - GENERAL 10/30/2013 ESQUIVEL STOKER ERECTOR, CHANG R V25.09 CONTRACEPTIVE COUNSELING - GENERAL 10/30/2013 PERDOMO DO TRAVIS K V25.09 CONTRACEPTIVE COUNSELING - GENERAL 12/04/2013 SABRINA STOKER ERECTOR, LUANN A V24.2 F/U, ROUTINE 12/04/2013 SABRINA STOKER ERECTOR, LUANN A V25.9 CONTRACEPTION MANAGEMENT 12/04/2013 SABRINA STOKER ERECTOR, LUANN A V24.2 F/U, ROUTINE 12/04/2013 SABRINA STOKER ERECTOR, LUANN A V25.9 CONTRACEPTION MANAGEMENT 12/04/2013 PERDOMO DO, TRAVIS K V24.2 F/U, ROUTINE 12/04/2013 PERDOMO DO, TRAVIS K V25.9 CONTRACEPTION MANAGEMENT 12/04/2013 PERDOMO DO, TRAVIS K V24.2 F/U, ROUTINE 12/04/2013 PERDOMO DO, TRAVIS K V25.9 CONTRACEPTION MANAGEMENT 12/04/2013 BARBER ESQUIVEL APRNIA R V24.2 F/U, ROUTINE 12/04/2013 CHANG ESQUIVEL APRN R V25.9 CONTRACEPTION MANAGEMENT 12/04/2013 PERDOMO DO, TRAVIS K V24.2 F/U, ROUTINE 12/04/2013 PERDOMO DO, TRAVIS K V25.9 CONTRACEPTION MANAGEMENT 10/21/2014 CHANG ESQUIVEL APRN R 462 ACUTE PHARYNGITIS 10/21/2014 LEANNE CANTOR TRAVIS K 462 ACUTE PHARYNGITIS 01/31/2015 Ot 558.9 NONINF GASTROENTERIT NEC 09/30/2015 FELICITA ROBLEDO Ot R51 HEADACHE 09/30/2015 FELICITA ROBLEDO Ot 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 01/11/2016 DORA OLIVAREZ DO Ot G43.909 MIGRAINE, UNSP, NOT INTRACTABLE, WITHOUT Procedures Code Description [place] [address] ROUTINE VENIPUNCTURE 01/23/2013 95352 CBC 01/23/2013 93500 CMP 01/23/2013 1962294 GFR CALC (RESULT ONLY) 01/23/2013 05047 US GALLBLADDER 01/28/2013 96198 US ABDOMEN, LIMITED 02/13/2013 92097 HIDA SCAN 02/13/2013 60771 US OB - LIMITED 07/01/2013 25533 GC/CHLAM PROBE (STATE) 07/01/2013 45246 UA OB DIP 07/01/2013 21870 TRICHOMONAS (IN-HOUSE) 07/01/2013 01046 CULTURE UROGENITAL 07/03/2013 81655 UA W/ CULTURE IF INDICATED 07/14/2013 56246 UA OB DIP 07/15/2013 95527 CULTURE UROGENITAL 07/16/2013 09071 UA OB DIP 08/12/2013 80562 ROUTINE VENIPUNCTURE 08/26/2013 76142 UA OB DIP 08/26/2013 51285 CBC 08/26/2013 68977 GLUCOSE BETTY 1 HOUR 08/26/2013 73015 UA OB DIP 09/03/2013 82177 UA OB DIP 09/09/2013 06834 UA OB DIP 09/16/2013 20032 UA OB DIP 09/23/2013 57269 CULTURE GROUP B STREP VAG 09/23/2013 17378 ROUTINE VENIPUNCTURE 09/30/2013 12853 UA OB DIP 09/30/2013 21519 CBC 09/30/2013 2179420 GFR CALC (RESULT ONLY) 09/30/2013 13128 CMP 09/30/2013 86304 LDH 09/30/2013 95848 URIC ACID 09/30/2013 82622 URINE PROTEIN 24 HOUR 10/06/2013 21858 UA OB DIP 10/07/2013 11982 UA OB DIP 10/14/2013 05755 UA OB DIP 10/21/2013 90711 THERAPUTIC INJ SQ/IM 12/04/2013 94797 TEST, URINE (IN- HOUSE) 12/04/2013 J1050 DEPO PROVERA 12/04/2013 53810 TEST, URINE (IN- HOUSE) 03/02/2014 J1050 DEPO PROVERA 03/02/2014 35627 THERAPUTIC INJ SQ/IM 03/02/2014 28633 THERAPUTIC INJ SQ/IM 05/29/2014 J1050 DEPO PROVERA 05/29/2014 29147 TEST, URINE (IN- HOUSE) 05/29/2014 73651 TEST, URINE (IN- HOUSE) 08/20/2014 J1050 DEPO PROVERA 08/20/2014 86126 THERAPUTIC INJ SQ/IM 08/20/2014 77237 STREP A (IN-HOUSE) 10/21/2014 84314 TEST, URINE (IN- HOUSE) 11/05/2014 11513 THERAPUTIC INJ SQ/IM 11/05/2014 J1050 DEPO PROVERA 11/05/2014 Results There is no data. Encounters ACCT No. Visit Date/Time Discharge Status Pt. Type Provider Facility Loc./Unit Complaint [id number] 11/05/2014 10:30:00 11/05/2014 23:59:59 CLS Outpatient TRAVIS PERDOMO DO [id number] 10/21/2014 13:34:00 10/21/2014 23:59:59 CLS Outpatient SIERRA GREENBERG CHANG R [id number] 08/20/2014 11:16:00 08/20/2014 23:59:59 CLS Outpatient TRAVIS PERDOMO DO [id number] 05/29/2014 09:19:00 05/29/2014 23:59:59 CLS Outpatient TRAVIS PERDOMO DO [id number] 03/02/2014 08:20:00 03/02/2014 23:59:59 CLS Outpatient LUANN BENNETT APRN [id number] 12/04/2013 09:49:00 12/04/2013 23:59:59 CLS Outpatient LUANN BENNETT APRN [id number] 10/21/2013 15:15:00 10/21/2013 23:59:59 CLS Outpatient ANNA MOORE MD [id number] 10/14/2013 09:25:00 10/14/2013 23:59:59 CLS Outpatient ANNA MOORE MD [id number] 10/07/2013 10:30:00 10/07/2013 23:59:59 CLS Outpatient TRAVIS PERDOMO DO [id number] 10/07/2013 10:30:00 10/07/2013 23:59:59 CLS Outpatient ANNA MOORE MD [id number] 09/30/2013 14:30:00 09/30/2013 23:59:59 CLS Outpatient TRAVIS PERDOMO DO [id number] 09/23/2013 10:40:00 09/23/2013 23:59:59 CLS Outpatient HECTOR JETT MD [id number] 09/16/2013 09:26:00 09/16/2013 23:59:59 CLS Outpatient TRAVIS PERDOMO DO [id number] 09/09/2013 08:32:00 09/09/2013 23:59:59 CLS Outpatient TRAVIS PERDOMO DO [id number] 09/03/2013 15:03:00 09/03/2013 23:59:59 CLS Outpatient TRAVIS PERDOMO DO [id number] 08/26/2013 10:02:00 08/26/2013 23:59:59 CLS Outpatient TRAVIS PERDOMO DO [id number] 08/12/2013 09:18:00 08/12/2013 23:59:59 CLS Outpatient TRAVIS PERDOMO DO [id number] 07/14/2013 09:25:00 07/14/2013 23:59:59 CLS Outpatient LUANN BENNETT APRN [id number] 01/23/2013 11:40:00 01/23/2013 23:59:59 CLS Outpatient STANLEY CERVANTES APRN [id number] 07/15/2013 08:47:00 Document Registration [id number] 07/01/2013 11:23:00 Document Registration [id number] 06/17/2013 11:00:00 Document Registration [id number] 01/11/2016 03:41:00 01/11/2016 06:06:00 DIS Emergency DORA OLIVAREZ DO [facility] [place] [id number] 09/30/2015 21:33:00 09/30/2015 23:37:00 DIS Emergency FELICITA ROBLEDO [facility] ER POSS SPIDER BITE L ARM ;HEADACHE [id number] 10/21/2013 19:09:00 10/25/2013 15:03:00 DIS Inpatient [id number] 10/03/2013 21:53:00 10/03/2013 23:50:00 DIS Outpatient [id number] 08/26/2013 13:50:00 08/30/2013 18:25:00 DIS Inpatient [id number] 08/07/2013 16:23:00 08/07/2013 17:25:00 DIS Outpatient [id number] 07/09/2013 11:49:00 07/09/2013 23:59:59 CLS Outpatient [id number] 06/20/2013 15:23:00 06/20/2013 23:59:59 CLS Outpatient [id number] 11/06/2017 18:03:00 ACT Emergency JASPREET TO MD [facility] ER FACIAL RASH/BURNING [id number] 02/19/2015 08:52:00 Document Registration
[2017-11-06] MEDS ORDERED: diphenhydrAMINE 25 MG TAB (BENADRYL) PO ONE (18:45)
[2017-11-06] MEDS ORDERED: FAMOTIDINE 20 MG (PEPCID) TABLET PO ONE (18:45)
[2017-11-06] MEDS ORDERED: predniSONE 20 MG TAB PO ONE (18:45)
--- NOTE | 2017-11-06 18:49 | ED Integumentary General ---
General Chief Complaint: Allergic Reaction Stated Complaint: FACIAL RASH/BURNING Nursing Triage Note: ARRIVED VIA AMB WITH COMPLAINTS OF A RASH STARTING ON HER FACE TODAY. UNKNOWN CAUSE. COMPLAINS OF SEVERE ITCHING. Source: patient Exam Limitations: no limitations History of Present Illness Time seen by provider: 18:34 Initial Comments Patient presents ER by private conveyance with a chief complaint of a red itchy rash that started about 2 to 3:00 this afternoon area she was sent here from work because she cannot quit itching. She has not taken anything for it yet that she's been at work. She's never had a rash like this before. She denies she is changing her lotions, detergents, makeup, other exposures. She is not been out of the country nor has she been around anyone else with a rash. She does not have a history of eczema or psoriasis or other skin disorders. Patient does not have a history of asthma. She's having no difficulty swallowing her secretions, breathing, shortness of air, wheezing. The rash is on her face, upper neck and now starting on her forearms. She does not have any lesions in her mouth. Allergies and Home Medications Allergies Coded Allergies: No Known Drug Allergies (Verified , 04/03/08) Uncoded Allergies: [id number] (POLLEN EXTRACTS) (Allergy, Mild, 08/01/09) Home Medications No Active Prescriptions or Reported Meds Constitutional: No chills, No fever EENTM: No ear discharge, No hearing loss Respiratory: No cough, No short of breath Cardiovascular: No chest pain, No palpitations Gastrointestinal: No abdominal pain, No constipation, No diarrhea Skin: see HPI, change in color, dryness, No lesions, No lumps, pruritus, rash Past Khgykcs-Ktsyra-Qfgugt Hx Patient Social History Alcohol Use: Denies Use Recreational Drug Use: No Smoking Status: Never a Smoker Recent Foreign Travel: No Contact w/Someone Who Travel: No Recent Infectious Disease Expo: No Recent Hopitalizations: No Immunizations Up To Date Tetanus Booster (TDap): Less than 5yrs PED Vaccines UTD: Yes Date of Pneumonia Vaccine: Jan 31, 2011 Date of Influenza Vaccine: Sep 22, 2013 Surgeries History of Surgeries: Yes Surgeries: Section Respiratory History of Respiratory Disorde: No Cardiovascular History of Cardiac Disorders: No Neurological History of Neurological Disord: No Reproductive System Hx Reproductive Disorders: No Sexually Transmitted Disease: No HIV/AIDS: No Female Reproductive Disorders: Denies Gastrointestinal History of Gastrointestinal Di: No Musculoskeletal History of Musculoskeletal Dis: No Endocrine History of Endocrine Disorders: No Cancer History of Cancer: No Psychosocial History of Psychiatric Problem: No Integumentary History of Skin or Integumenta: No Blood Transfusions History of Blood Disorders: No Adverse Reaction to a Blood Tr: No Family Medical History Significant Family History: Heart Disease, Hypertension Family Medial History: Cardiovascular disease 19 FATHER Hypertension 19 FATHER 19 MOTHER Physical Exam Vital Signs Vital Sign - Last 12Hours 11/06/17 18:21 Temp 98.0 Pulse 87 Resp 18 B/P (MAP) 161/110 (127) Pulse Ox 98 Capillary Refill : Less Than 3 Seconds General Appearance: WD/WN, mild distress HEENT: PERRL/EOMI, normal ENT inspection, TMs normal, pharynx normal Neck: non-tender, full range of motion, supple, normal inspection Cardiovascular: normal peripheral pulses, regular rate, rhythm, no edema Respiratory: no respiratory distress, no accessory muscle use Back: normal inspection, no vertebral tenderness Extremities: non-tender, normal inspection, normal capillary refill Neurologic/Psychiatric: alert, oriented x 3 Skin: rash (pruritic erythematous, blanchable contiguous patch over both sides of her face sparing mucous membranes and not around the eyes. There is no edema. There is a little bit of redness patches on her upper sun exposed dorsum as well as her dorsal forearms. Mild excoriation on her forearms were she's been scratching.), other (no bullae, lesions, peeling skin etc.) Progress/Results/Core Measures Results/Orders My Orders Orders - JASPREET TO Diphenhydramine Tablet (Benadryl Tablet) (11/06/17 18:45) Famotidine Tablet (Pepcid Tablet) (11/06/17 18:45) Prednisone Tablet (Deltasone Tablet) (11/06/17 18:45) Vital Signs/I&O Vital Sign - Last 12Hours 11/06/17 18:21 Temp 98.0 Pulse 87 Resp 18 B/P (MAP) 161/110 (127) Pulse Ox 98 Blood Pressure Mean: 127 Progress Note : Time: 18:44 Progress Note We'll start antihistamine blockade for her itching and get her started on some prednisone as topical steroids are not as desirable for her face. We'll have her follow-up with her primary care physician either later this week or early next week to ensure some resolution of her symptoms. Departure Impression Impression: Primary Impression: Rash and nonspecific skin eruption Disposition: 01 HOME, SELF-CARE Condition: Stable Departure-Patient Inst. Decision time for Depature: 18:45 Referrals: ANNA MOORE MD (PCP/Family) Primary Care Physician Patient Instructions: Skin Rash (DC) Add. Discharge Instructions: Avoid any perfumes, makeup or scented lotions. Use a hypoallergenic ointment such as Vaseline, Nutraderm, Cetaphil, CeraVe, immediately after bathing and drying to capture the moisture against your skin. Please take 10 mg of either loratadine or Claritin daily for the itching and then you can use one half or one tablet 12.5 - 25mg of Benadryl for breakthrough itching every 6 hours. You may also take a Zantac or Pepcid tablet twice a day to help with the itching. 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 Then take one tablet twice a day for 2 days. Finally take one tablet daily for 3 days. Tomorrow morning call your primary care physician and get an appointment either for later this week or early next week to ensure resolution of your symptoms. Return to the ER immediately if you begin to have difficulty breathing or swallowing fluids. All discharge instructions reviewed with patient and/or family. Voiced understanding. Scripts No Active Prescriptions or Reported Meds Work/School Note: Work Release Form Date Seen in the Emergency Department: Nov 06, 2017 Return to Work: Nov 07, 2017 Restrictions: No Restrictions Copy Copies To 1: TRAVIS PERDOMO TITUS J Nov 06, 2017 18:49
[2017-11-06] MEDS ORDERED: PRD20T PO (18:53)
[2017-11-06 18:58] VITALS: BP 158/95
== END 2017-11-06 19:00 | disposition home or self-care (01) ==
LOC: EDUNIT# 18:01 → ER 18:03
DX: R21 Rash and other nonspecific skin eruption (principal); Z87.19 Personal history of other diseases of the digestive system; Z82.49 Family history of ischemic heart disease and other diseases of the circulatory system
CPT/HCPCS: 99283

== ENCOUNTER 2018-02-05 06:56 | Emergency (ER) | payer SELFPAY ==
[~2018-02-05] VITALS: Ht 157.5 cm; Wt 126.6 kg
[~2018-02-05 06:56] MED LIST changes: -HYDR-3812 PO
--- OUTSIDE RECORDS SUMMARY | 2018-02-05 07:03 | XMS REPORT | Continuity of Care Document ---
Author Author [facility] Address Unknown Phone Unavailable Allergies Active Description Code Type Severity Reaction Onset Reported/Identified Relationship to Patient Clinical Status Yes No Known Drug Allergies [id number] Drug Allergy Unknown N/A 04/03/2008 Yes [id number] (POLLEN EXTRACTS) [id number] (POLLEN EXTRACTS) Mild N/A Medications There is [...] N 465.9 UPPER RESPIRATORY INFECTION 10/29/2008 SABRINA ELASTIC ATTACHER COVERSTITCH, LUANN A 462 PHARYNGITIS ACUTE 10/29/2008 SABRINA ELASTIC ATTACHER COVERSTITCH, LUANN A 465.9 UPPER RESPIRATORY INFECTION 10/29/2008 SABRINA ELASTIC ATTACHER COVERSTITCH, LUANN A 462 PHARYNGITIS ACUTE 10/29/2008 SABRINA ELASTIC ATTACHER COVERSTITCH, LUANN A 465.9 UPPER RESPIRATORY INFECTION 10/29/2008 PERDOMO DO, TRAVIS K 462 PHARYNGITIS ACUTE 10/29/2008 PERDOMO DO, TRAVIS K 465.9 UPPER RESPIRATORY INFECTION 10/29/2008 PERDOMO DO, TRAVIS K 462 PHARYNGITIS ACUTE 10/29/2008 PERDOMO DO, TRAVIS K 465.9 UPPER RESPIRATORY INFECTION 10/29/2008 SIERRA ELASTIC ATTACHER COVERSTITCH, CHANG R 462 PHARYNGITIS ACUTE 10/29/2008 ESQUIVEL ELASTIC ATTACHER COVERSTITCH, CHANG R 465.9 UPPER RESPIRATORY INFECTION 10/29/2008 [...] MOORE MD V72.3 GYNECOLOGICAL EXAMINATION 06/16/2009 SABRINA ELASTIC ATTACHER COVERSTITCH, LUANN A V25.01 CONTRACEPTION, ORAL / CONTROL 06/16/2009 SABRINA ELASTIC ATTACHER COVERSTITCH, LUANN A V72.3 GYNECOLOGICAL EXAMINATION 06/16/2009 SABRINA ELASTIC ATTACHER COVERSTITCH, LUANN A V25.01 CONTRACEPTION, ORAL / CONTROL 06/16/2009 SABRINA ELASTIC ATTACHER COVERSTITCH, LUANN A V72.3 GYNECOLOGICAL EXAMINATION 06/16/2009 PERDOMO DO, TRAVIS K V25.01 CONTRACEPTION, ORAL / CONTROL 06/16/2009 PERDOMO DO, TRAVIS K V72.3 GYNECOLOGICAL EXAMINATION 06/16/2009 PERDOMO DO, TRAVIS K V25.01 CONTRACEPTION, ORAL / CONTROL 06/16/2009 PERDOMO DO, TRAVIS K V72.3 GYNECOLOGICAL EXAMINATION 06/16/2009 SIERRA ELASTIC ATTACHER COVERSTITCH, CHANG R V25.01 CONTRACEPTION, ORAL / CONTROL 06/16/2009 SIERRA ELASTIC ATTACHER COVERSTITCH, CHANG R V72.3 GYNECOLOGICAL EXAMINATION 06/16/2009 PERDOMO DO, TRAVIS K V25.01 CONTRACEPTION, ORAL / CONTROL 06/16/2009 PERDOMO DO, TRAVIS K V72.3 GYNECOLOGICAL EXAMINATION 06/27/2010 STANLEY CERVANTES APRN V72.31 FINANCIAL INVESTMENT ADVISER EXAM, ROUTINE 06/27/2010 V72.31 FINANCIAL INVESTMENT ADVISER EXAM, ROUTINE 06/27/2010 V72.31 FINANCIAL INVESTMENT ADVISER EXAM, ROUTINE 06/27/2010 V72.31 FINANCIAL INVESTMENT ADVISER EXAM, ROUTINE 06/27/2010 SABRIAN GREENBERG LUANN A V72.31 FINANCIAL INVESTMENT ADVISER EXAM, ROUTINE 06/27/2010 PERDOMO DO, TRAVIS K V72.31 FINANCIAL INVESTMENT ADVISER EXAM, ROUTINE 06/27/2010 PERDOMO DO, TRAVIS K V72.31 FINANCIAL INVESTMENT ADVISER EXAM, ROUTINE 06/27/2010 PERDOMO DO, TRAVIS K V72.31 FINANCIAL INVESTMENT ADVISER EXAM, ROUTINE 06/27/2010 PERDOMO DO, TRAVIS K V72.31 FINANCIAL INVESTMENT ADVISER EXAM, ROUTINE 06/27/2010 HECTOR JETT MD V72.31 FINANCIAL INVESTMENT ADVISER EXAM, ROUTINE 06/27/2010 PERDOMO DO TRAVIS K V72.31 FINANCIAL INVESTMENT ADVISER EXAM, ROUTINE 06/27/2010 PERDOMO DO, TRAVIS K V72.31 FINANCIAL INVESTMENT ADVISER EXAM, ROUTINE 06/27/2010 ANNA MOORE MD V72.31 FINANCIAL INVESTMENT ADVISER EXAM, ROUTINE 06/27/2010 ANNA MOORE MD V72.31 FINANCIAL INVESTMENT ADVISER EXAM, ROUTINE 06/27/2010 PERDOMO DO TRAVIS K V72.31 FINANCIAL INVESTMENT ADVISER EXAM, ROUTINE 06/27/2010 ANNA MOORE MD V72.31 FINANCIAL INVESTMENT ADVISER EXAM, ROUTINE 06/27/2010 SABRINA ELASTIC ATTACHER COVERSTITCHDANNY CormierIDI A V72.31 FINANCIAL INVESTMENT ADVISER EXAM, ROUTINE 06/27/2010 SABRINA APRN, LUANN A V72.31 FINANCIAL INVESTMENT ADVISER EXAM, ROUTINE 06/27/2010 PERDOMO DO TRAVIS K V72.31 FINANCIAL INVESTMENT ADVISER EXAM, ROUTINE 06/27/2010 PERDOMO DO, TRAVIS K V72.31 FINANCIAL INVESTMENT ADVISER EXAM, ROUTINE 06/27/2010 CHANG ESQUIVEL APRN V72.31 FINANCIAL INVESTMENT ADVISER EXAM, ROUTINE 06/27/2010 PERDOMO DO TRAVIS K V72.31 FINANCIAL INVESTMENT ADVISER EXAM, ROUTINE 03/29/2011 STANLEY CERVANTES APRN S [...] ANNA MOORE MD V74.1 TB SCREENING 03/29/2011 SABRINA ELASTIC ATTACHER COVERSTITCH, LUANN A V74.1 TB SCREENING 03/29/2011 SABRINA ELASTIC ATTACHER COVERSTITCH, LUANN A V74.1 TB SCREENING 03/29/2011 PERDOMO DO, TRAVIS K V74.1 TB SCREENING 03/29/2011 PERDOMO DO, TRAVIS K V74.1 TB SCREENING 03/29/2011 SIERRA GREENBERGBILLCHANG R V74.1 TB SCREENING 03/29/2011 PERDOMO DO, TRAVIS K V74.1 TB SCREENING 05/14/2012 HELEN GREENBERG, STANLEY S V22.0 , NORMAL FIRST 05/14/2012 V22.0 , NORMAL FIRST 05/14/2012 V22.0 , NORMAL FIRST 05/14/2012 V22.0 , NORMAL FIRST 05/14/2012 SABRINA ELASTIC ATTACHER COVERSTITCH, LUANN A V22.0 , NORMAL FIRST 05/14/2012 [...] N V22.0 , NORMAL FIRST 05/14/2012 SABRINA ELASTIC ATTACHER COVERSTITCH, ULANN A V22.0 , NORMAL FIRST 05/14/2012 SABRINA ELASTIC ATTACHER COVERSTITCH, LUANN A V22.0 , NORMAL FIRST 05/14/2012 PERDOMO DO, TRAVIS K V22.0 , NORMAL FIRST 05/14/2012 PERDOMO DO, TRAVIS K V22.0 , NORMAL FIRST 05/14/2012 SIERRA GREENBERG CHANG R V22.0 , NORMAL FIRST 05/14/2012 PERDOMO DO, TRAVIS K V22.0 , NORMAL FIRST 05/24/2012 HELEN ELASTIC ATTACHER COVERSTITCH STANLEY S 634.90 SPONTANEOUS UNSPECIFIED WITHOUT COMPLICATION 05/24/2012 HELEN ELASTIC ATTACHER COVERSTITCH, STANLEY S V25.02 GENERAL COUNSELING ON INITIATION OF OTHER CONTRACEPTIVE MEASURES 05/24/2012 634.90 SPONTANEOUS UNSPECIFIED WITHOUT COMPLICATION 05/24/2012 V25.02 GENERAL COUNSELING ON INITIATION OF OTHER CONTRACEPTIVE MEASURES 05/24/2012 634.90 SPONTANEOUS UNSPECIFIED WITHOUT COMPLICATION 05/24/2012 V25.02 GENERAL COUNSELING ON INITIATION OF OTHER CONTRACEPTIVE MEASURES 05/24/2012 634.90 SPONTANEOUS UNSPECIFIED WITHOUT COMPLICATION 05/24/2012 V25.02 GENERAL COUNSELING ON INITIATION OF OTHER CONTRACEPTIVE MEASURES 05/24/2012 SABRINA ELASTIC ATTACHER COVERSTITCH LUANN A 634.90 SPONTANEOUS UNSPECIFIED WITHOUT COMPLICATION 05/24/2012 SABRINA ELASTIC ATTACHER COVERSTITCH LUANN A V25.02 GENERAL COUNSELING ON INITIATION [...] INITIATION OF OTHER CONTRACEPTIVE MEASURES 05/24/2012 SABRINA ELASTIC ATTACHER COVERSTITCH, LUANN A 634.90 SPONTANEOUS UNSPECIFIED WITHOUT COMPLICATION 05/24/2012 SABRINA ELASTIC ATTACHER COVERSTITCH, LUANN A V25.02 GENERAL COUNSELING ON INITIATION OF OTHER CONTRACEPTIVE MEASURES 05/24/2012 SABRINA ELASTIC ATTACHER COVERSTITCH, LUANN A 634.90 SPONTANEOUS UNSPECIFIED WITHOUT COMPLICATION 05/24/2012 SABRINA ELASTIC ATTACHER COVERSTITCH, LUANN A V25.02 GENERAL COUNSELING ON INITIATION OF OTHER CONTRACEPTIVE MEASURES 05/24/2012 YANIRA PERDOMO DOA K 634.90 SPONTANEOUS UNSPECIFIED WITHOUT COMPLICATION 05/24/2012 YANIRA PERDOMO DOA K V25.02 GENERAL COUNSELING ON INITIATION OF OTHER CONTRACEPTIVE MEASURES 05/24/2012 LEANNE CANTOR TRAVIS K 634.90 SPONTANEOUS UNSPECIFIED WITHOUT COMPLICATION 05/24/2012 YANIRA PERDOMO DOA K V25.02 GENERAL COUNSELING ON INITIATION OF OTHER CONTRACEPTIVE MEASURES 05/24/2012 SIERRA ELASTIC ATTACHER COVERSTITCH, CHANG R 634.90 SPONTANEOUS UNSPECIFIED WITHOUT COMPLICATION 05/24/2012 ESQUIVEL ELASTIC ATTACHER COVERSTITCH, CHANG R V25.02 GENERAL COUNSELING ON INITIATION [...] ABDOMINAL PAIN RIGHT UPPER QUADRANT 01/23/2013 SABRINA GREENBERG LUANN A 787.01 NAUSEA WITH VOMITING 01/23/2013 [...] W/ INSUFFICIENT CARE 06/17/2013 LUANN BENNETT APRN A 649.13 OBESITY COMPLICATING CHILDBIRTH [...] PUERPERIUM ANTEPARTUM CONDITION OR COMPLICATION 06/17/2013 TRAVIS EPRDOMO DO K V23.7 , HIGH RISK W/ [...] ABDOMINAL PAIN RIGHT LOWER QUADRANT 07/14/2013 SABRINA ELASTIC ATTACHER COVERSTITCH, LUANN A 789.03 ABDOMINAL PAIN RIGHT LOWER QUADRANT 07/14/2013 SABRINA ELASTIC ATTACHER COVERSTITCH, LUANN A 789.03 ABDOMINAL PAIN RIGHT LOWER [...] Cormier V22.1 , NORMAL OTHER 07/15/2013 SABRINA ELASTIC ATTACHER COVERSTITCH, LUANN A V22.1 , NORMAL OTHER 07/15/2013 SABRINA ELASTIC ATTACHER COVERSTITCH, LUANN A V22.1 , NORMAL OTHER 07/15/2013 PERDOMO DO, TRAVIS K V22.1 , NORMAL OTHER 07/15/2013 PERDOMO DO, TRAVIS K V22.1 , NORMAL OTHER 07/15/2013 ESQUIVEL ELASTIC ATTACHER COVERSTITCH, CHANG R V22.1 , NORMAL OTHER 07/15/2013 [...] ANNA Cormier V06.1 TDAP DX 08/12/2013 SABRINA ELASTIC ATTACHER COVERSTITCH, LUANN A V04.81 FLU SHOT 08/12/2013 SABRINA ELASTIC ATTACHER COVERSTITCH, LUANN A V06.1 TDAP DX 08/12/2013 SABRINA ELASTIC ATTACHER COVERSTITCH, LUANN A V04.81 FLU SHOT 08/12/2013 SABRINA ELASTIC ATTACHER COVERSTITCH, LUANN A V06.1 TDAP DX 08/12/2013 PERDOMO DO, TRAVIS K V04.81 FLU SHOT 08/12/2013 PERDOMO DO, TRAVIS K V06.1 TDAP DX 08/12/2013 PERDOMO DO, TRAVIS K V04.81 FLU SHOT 08/12/2013 PERDOMO DO, TRAVIS K V06.1 TDAP DX 08/12/2013 ESQUIVEL ELASTIC ATTACHER COVERSTITCH, CHANG R V04.81 FLU SHOT 08/12/2013 ESQUIVEL ELASTIC ATTACHER COVERSTITCH, CHANG R V06.1 TDAP DX 08/12/2013 PERDOMO [...] Cormier V65.11 NEW MOMMY VISIT 09/23/2013 SABRINA ELASTIC ATTACHER COVERSTITCH, LUANN A V65.11 NEW MOMMY VISIT 09/23/2013 SABRINA ELASTIC ATTACHER COVERSTITCH, LUANN A V65.11 NEW MOMMY VISIT 09/23/2013 [...] V25.09 CONTRACEPTIVE COUNSELING - GENERAL 10/30/2013 ESQUIVEL ELASTIC ATTACHER COVERSTITCH, CHANG R V25.09 CONTRACEPTIVE COUNSELING - GENERAL 10/30/2013 PERDOMO DO TRAVIS K V25.09 CONTRACEPTIVE COUNSELING - GENERAL 12/04/2013 SABRINA ELASTIC ATTACHER COVERSTITCH, LUANN A V24.2 F/U, ROUTINE 12/04/2013 SABRIAN ELASTIC ATTACHER COVERSTITCH, LUANN A V25.9 CONTRACEPTION MANAGEMENT 12/04/2013 SABRINA ELASTIC ATTACHER COVERSTITCH, LUANN A V24.2 F/U, ROUTINE 12/04/2013 SABRINA ELASTIC ATTACHER COVERSTITCH, LUANN A V25.9 CONTRACEPTION MANAGEMENT 12/04/2013 PERDOMO DO, TRAVIS K V24.2 F/U, ROUTINE 12/04/2013 PERDOMO DO, TRAVIS K V25.9 CONTRACEPTION MANAGEMENT 12/04/2013 PERDOMO DO, TRAVIS K V24.2 F/U, ROUTINE 12/04/2013 PERDOMO DO, TRAVIS K V25.9 CONTRACEPTION MANAGEMENT 12/04/2013 BARBER ESQUIVEL APRNIA R V24.2 F/U, ROUTINE 12/04/2013 BARBER ESQUIVEL APRNIA R V25.9 CONTRACEPTION MANAGEMENT 12/04/2013 PERDOMO DO, [...] Ot G43.909 MIGRAINE, UNSP, NOT INTRACTABLE, WITHOUT 11/06/2017 JASPREET TO MD Ot L29.9 PRURITUS, UNSPECIFIED 11/06/2017 JASPREET TO MD Ot R21 RASH AND OTHER NONSPECIFIC SKIN ERUPTION 11/06/2017 JASPREET TO MD Ot Z82.49 FAMILY HX OF ISCHEM HEART DIS AND OTH DI 11/06/2017 JASPREET TO MD Ot Z87.19 PERSONAL HISTORY OF OTHER DISEASES OF TH Procedures Code Description [place] [address] ROUTINE VENIPUNCTURE 01/23/2013 92495 CBC 01/23/2013 92382 CMP 01/23/2013 4002901 GFR CALC (RESULT ONLY) 01/23/2013 60483 US GALLBLADDER 01/28/2013 56949 US ABDOMEN, LIMITED 02/13/2013 69243 HIDA SCAN 02/13/2013 77894 US OB - LIMITED 07/01/2013 99704 GC/CHLAM PROBE (STATE) 07/01/2013 55261 UA OB DIP 07/01/2013 74908 TRICHOMONAS (IN-HOUSE) 07/01/2013 45694 CULTURE UROGENITAL 07/03/2013 81256 UA W/ CULTURE IF INDICATED 07/14/2013 42758 UA OB DIP 07/15/2013 09053 CULTURE UROGENITAL 07/16/2013 37346 UA OB DIP 08/12/2013 02272 ROUTINE VENIPUNCTURE 08/26/2013 74013 UA OB DIP 08/26/2013 19862 CBC 08/26/2013 45928 GLUCOSE BETTY 1 HOUR 08/26/2013 68901 UA OB DIP 09/03/2013 92519 UA OB DIP 09/09/2013 84152 UA OB DIP 09/16/2013 46326 UA OB DIP 09/23/2013 75051 CULTURE GROUP B STREP VAG 09/23/2013 77089 ROUTINE VENIPUNCTURE 09/30/2013 53432 UA OB DIP 09/30/2013 39184 CBC 09/30/2013 5862917 GFR CALC (RESULT ONLY) 09/30/2013 66401 CMP 09/30/2013 31707 LDH 09/30/2013 03964 URIC ACID 09/30/2013 88451 URINE PROTEIN 24 HOUR 10/06/2013 06953 UA OB DIP 10/07/2013 17672 UA OB DIP 10/14/2013 57364 UA OB DIP 10/21/2013 40551 THERAPUTIC INJ SQ/IM 12/04/2013 85803 TEST, URINE (IN- HOUSE) 12/04/2013 J1050 DEPO PROVERA 12/04/2013 60861 TEST, URINE (IN- HOUSE) 03/02/2014 J1050 DEPO PROVERA 03/02/2014 56559 THERAPUTIC INJ SQ/IM 03/02/2014 57910 THERAPUTIC INJ SQ/IM 05/29/2014 J1050 DEPO PROVERA 05/29/2014 84329 TEST, URINE (IN- HOUSE) 05/29/2014 59332 TEST, URINE (IN- HOUSE) 08/20/2014 J1050 DEPO PROVERA 08/20/2014 11104 THERAPUTIC INJ SQ/IM 08/20/2014 08858 STREP A (IN-HOUSE) 10/21/2014 72054 TEST, URINE (IN- HOUSE) 11/05/2014 79703 THERAPUTIC INJ SQ/IM 11/05/2014 J1050 DEPO PROVERA 11/05/2014 Results There is no data. Encounters ACCT No. Visit Date/Time Discharge Status Pt. Type Provider Facility Loc./Unit Complaint [id number] 11/05/2014 10:30:00 11/05/2014 23:59:59 CLS Outpatient TRAVIS PERDOMO DO [id number] 10/21/2014 13:34:00 10/21/2014 23:59:59 CLS Outpatient CHANG ESQUIVEL APRN [id number] 08/20/2014 11:16:00 08/20/2014 23:59:59 CLS Outpatient TRAVIS PERDOMO DO [id number] 05/29/2014 09:19:00 05/29/2014 23:59:59 CLS Outpatient TRAVSI PERDOMO DO [id number] 03/02/2014 08:20:00 03/02/2014 23:59:59 CLS Outpatient LUANN BENNETT APRN [id number] 12/04/2013 09:49:00 12/04/2013 23:59:59 CLS Outpatient LUANN BENNETT APRN [id number] 10/21/2013 15:15:00 10/21/2013 23:59:59 CLS Outpatient ANNA MOORE MD [id number] 10/14/2013 09:25:00 10/14/2013 23:59:59 CLS Outpatient ANNA MOORE MD [id number] 10/07/2013 10:30:00 10/07/2013 23:59:59 CLS Outpatient TRAVIS PERDOMO DO [id number] 10/07/2013 10:30:00 10/07/2013 23:59:59 CLS Outpatient ANNA MOORE MD [id number] 09/30/2013 14:30:00 09/30/2013 23:59:59 CLS Outpatient TRAVIS PERDOMO DO [id number] 09/23/2013 10:40:00 09/23/2013 23:59:59 CLS Outpatient HECTOR JETT MD [id number] 09/16/2013 09:26:00 09/16/2013 23:59:59 CLS Outpatient TRAVIS PERDOMO DO Berenice [id number] 09/09/2013 08:32:00 09/09/2013 23:59:59 CLS Outpatient TRAVIS PERDOMO DO Berenice [id number] 09/03/2013 15:03:00 09/03/2013 23:59:59 CLS Outpatient TRAVIS PERDOMO DO Berenice [id number] 08/26/2013 10:02:00 08/26/2013 23:59:59 CLS Outpatient TRAVIS PERDOMO DO Berenice [id number] 08/12/2013 09:18:00 08/12/2013 23:59:59 CLS Outpatient TRAVIS PERDOMO DO Berenice [id number] 07/14/2013 09:25:00 07/14/2013 23:59:59 CLS Outpatient LUANN BENNETT APRN [id number] 01/23/2013 11:40:00 01/23/2013 23:59:59 CLS Outpatient STANLEY CERVANTES APRN [id number] 07/15/2013 08:47:00 Document Registration [id number] 07/01/2013 11:23:00 Document Registration [id number] 06/17/2013 11:00:00 Document Registration [id number] 02/01/2018 11:52:00 02/01/2018 23:59:59 CLS Preadmit ANNA MOORE MD [facility] RAD NONINTRACTABLE VOMITTING W NAUSEA [id number] 11/06/2017 18:03:00 11/06/2017 19:00:00 DIS Emergency JASPREET TO MD [facility] ER FACIAL RASH/BURNING [id number] 01/11/2016 03:41:00 01/11/2016 06:06:00 DIS Emergency DORA OLIVAREZ DO [facility] ER FOUNTAIN [id number] 09/30/2015 21:33:00 09/30/2015 23:37:00 DIS Emergency FELICITA ROBLEDO [facility] ER POSS SPIDER BITE L ARM ;HEADACHE [id number] 10/21/2013 19:09:00 10/25/2013 15:03:00 DIS Inpatient [id number] 10/03/2013 21:53:00 10/03/2013 23:50:00 DIS Outpatient [id number] 08/26/2013 13:50:00 08/30/2013 18:25:00 DIS Inpatient [id number] 08/07/2013 16:23:00 08/07/2013 17:25:00 DIS Outpatient [id number] 07/09/2013 11:49:00 07/09/2013 23:59:59 CLS Outpatient [id number] 06/20/2013 15:23:00 06/20/2013 23:59:59 CLS Outpatient [id number] 02/19/2015 08:52:00 Document Registration
[2018-02-05] MEDS ORDERED: LEXAPRO (07:14)
[2018-02-05] MEDS ORDERED: NS IV 1000 ML 1,000 ML IV ONE (07:14)
[2018-02-05] MEDS ORDERED: FAMOTIDINE 20MG/2ML IV (PEPCID) IV STA (07:22)
[2018-02-05] MEDS ORDERED: ONDANSETRON 4 MG/2 ML (SDV) Z0FRAN IVP ONE (07:30)
--- NOTE | 2018-02-05 07:32 | ED Abdominal Pain ---
General Chief Complaint: Abdominal/GI Problems Stated Complaint: UPPER ABD PAIN Nursing Triage Note: C/O R UPPER ABD ON AND OFF LAST 4 YEARS. LAST SEVERAL WEEKS PAIN WORSE. [facility] AND IS TO SCHEDULE HER FOR GALLBLADDER SONO HAS NOT HEARD FROM THEM YET. Sepsis Screen: No Definite Risk Source of Information: Patient Exam Limitations: No Limitations History of Present Illness Date Seen by Provider: Feb 05, 2018 Time Seen by Provider: 07:14 Initial Comments Here with report of right upper quadrant abdominal pain has been worse over the last several weeks. Over the last few days she's had increased nausea and vomiting including this morning. She is followed with [facility] and they are supposed to be setting her up for something that hasn't happened yet so she came to the ER for further evaluation. She has had gallbladder ultrasound previously that was negative but is concerned about her gallbladder. She does have reflux disease and is not currently on acid reducers but states that it does not feel like that. This is worse with food and also without food. Denies fever or chills. Denies diarrhea Timing/Duration: 1 Week Severity/Quality: Moderate, Aching, Burning Location: RUQ, Epigastric Radiation: No Radiation Activities at Onset: Sleeping Modifying Factors: Worsens With Eating, Worsens With Palpation, Worsens With Vomiting Associated Symptoms: No Back Pain, No Chest Pain, No Fever/Chills, No Nausea/ Vomiting, No Shortness of Air, No Swelling/Mass in Abdomen, No Weakness Allergies and Home Medications Allergies Coded Allergies: No Known Drug Allergies (Verified , 04/03/08) Uncoded Allergies: [id number] (POLLEN EXTRACTS) (Allergy, Mild, 08/01/09) Patient Home Medication List Home Medication List Reviewed: Yes Review of Systems Constitutional: see HPI, No chills, No fever EENTM: No Symptoms Reported Respiratory: No Symptoms Reported Cardiovascular: No Symptoms Reported Gastrointestinal: Abdominal Pain, Denies Diarrhea, Nausea, Denies Rectal Bleeding, Vomiting Genitourinary: No Symptoms Reported Musculoskeletal: no symptoms reported Skin: no symptoms reported All Other Systems Reviewed Negative Unless Noted: Yes Past Wtkgzmh-Yrpizb-Mwnjqo Hx Patient Social History Alcohol Use: Occasionally Uses Recreational Drug Use: No Smoking Status: Never a Smoker Recent Foreign Travel: No Contact w/Someone Who Travel: No Recent Infectious Disease Expo: No Recent Hopitalizations: No Immunizations Up To Date Tetanus Booster (TDap): Less than 5yrs PED Vaccines UTD: Yes Date of Pneumonia Vaccine: Jan 31, 2011 Date of Influenza Vaccine: Sep 22, 2013 Surgeries History of Surgeries: Yes Surgeries: Section Respiratory History of Respiratory Disorde: No Cardiovascular History of Cardiac Disorders: No Neurological History of Neurological Disord: No Reproductive System Hx Reproductive Disorders: No Sexually Transmitted Disease: No HIV/AIDS: No Female Reproductive Disorders: Denies Gastrointestinal History of Gastrointestinal Di: No Musculoskeletal History of Musculoskeletal Dis: No Endocrine History of Endocrine Disorders: No Cancer History of Cancer: No Psychosocial History of Psychiatric Problem: Yes Behavioral Health Disorders: Depression Integumentary History of Skin or Integumenta: No Blood Transfusions History of Blood Disorders: No Adverse Reaction to a Blood Tr: No Reviewed Nursing Assessment Reviewed/Agree w Nursing PMH: Yes Family Medical History Significant Family History: Heart Disease, Hypertension Family Medial History: Cardiovascular disease 19 FATHER Hypertension 19 FATHER 19 MOTHER Physical Exam Vital Signs VS - Last 72 Hours, by Label 02/05/18 07:01 Temp 97.2 Pulse 11 Resp 18 B/P (MAP) 129/106 (114) Pulse Ox 99 O2 Delivery Room Air Capillary Refill : Less Than 3 Seconds General Appearance: WD/WN, no apparent distress HEENT: PERRL/EOMI, pharynx normal Neck: full range of motion, supple Respiratory: lungs clear, normal breath sounds Cardiovascular: regular rate, rhythm, no murmur Peripheral Pulses: 2+ Dorsalis Pedis (R), 2+ Left Dors-Pedis (L), 2+ Radial Pulses (R), 2+ Radial Pulses (L) Gastrointestinal: soft, No guarding, No rebound, tenderness (right upper quadrant) Extremities: non-tender, normal inspection Back: normal inspection, no CVA tenderness Neurologic/Psychiatric: alert, oriented x 3 Skin: normal color, warm/dry Progress/Results/Core Measures Results/Orders Lab Results Laboratory Tests Test 02/05/18 07:36 02/05/18 08:41 Range/Units White Blood Count 8.7 4.3-11.0 10^3/uL Red Blood Count 4.37 4.35-5.85 10^6/uL Hemoglobin 12.4 11.5-16.0 G/DL Hematocrit 37 35-52 % Mean Corpuscular Volume 86 80-99 FL Mean Corpuscular Hemoglobin 28 25-34 PG Mean Corpuscular Hemoglobin Concent 33 32-36 G/DL Red Cell Distribution Width 13.3 10.0-14.5 % Platelet Count 412 H 130-400 10^3/uL Mean Platelet Volume 10.8 H 7.4-10.4 FL Neutrophils (%) (Auto) 52 42-75 % Lymphocytes (%) (Auto) 37 12-44 % Monocytes (%) (Auto) 8 0-12 % Eosinophils (%) (Auto) 2 0-10 % Basophils (%) (Auto) 0 0-10 % Neutrophils # (Auto) 4.5 1.8-7.8 X 10^3 Lymphocytes # (Auto) 3.3 1.0-4.0 X 10^3 Monocytes # (Auto) 0.7 0.0-1.0 X 10^3 Eosinophils # (Auto) 0.2 0.0-0.3 10^3/uL Basophils # (Auto) 0.0 0.0-0.1 10^3/uL Sodium Level 138 135-145 MMOL/L Potassium Level 3.9 3.6-5.0 MMOL/L Chloride Level 108 H 98-107 MMOL/L Carbon Dioxide Level 21 21-32 MMOL/L Anion Gap 9 5-14 MMOL/L Blood Urea Nitrogen 10 7-18 MG/DL Creatinine 0.89 0.60-1.30 MG/DL Estimat Glomerular Filtration Rate > 60 BUN/Creatinine Ratio 11 Glucose Level 92 70-105 MG/DL Calcium Level 9.1 8.5-10.1 MG/DL Total Bilirubin 0.6 0.1-1.0 MG/DL Aspartate Amino Transf (AST/SGOT) 13 5-34 U/L Alanine Aminotransferase (ALT/SGPT) 10 0-55 U/L Alkaline Phosphatase 67 40-136 U/L Total Protein 7.0 6.4-8.2 GM/DL Albumin 3.9 3.2-4.5 GM/DL Amylase Level 47 25-125 U/L Lipase 25 8-78 U/L Urine Color YELLOW Urine Clarity CLEAR Urine pH 6 5-9 Urine Specific [place] 1.020 1.016-1.022 Urine Protein NEGATIVE NEGATIVE Urine Glucose (UA) NEGATIVE NEGATIVE Urine Ketones NEGATIVE NEGATIVE Urine Nitrite NEGATIVE NEGATIVE Urine Bilirubin NEGATIVE NEGATIVE Urine Urobilinogen NORMAL NORMAL MG/DL Urine Leukocyte Esterase 1+ H NEGATIVE Urine RBC (Auto) NEGATIVE NEGATIVE Urine RBC RARE /HPF Urine WBC 0-2 /HPF Urine Squamous Epithelial Cells 10-25 H /HPF Urine Crystals NONE /LPF Urine Bacteria FEW H /HPF Urine Casts NONE /LPF Urine Mucus NEGATIVE /LPF Urine Culture Indicated NO My Orders Orders - LATONIA LOGAN MD Amylase (02/05/18 07:14) Cbc With Automated Diff (02/05/18 07:14) Comprehensive Metabolic Panel (02/05/18 07:14) Lipase (02/05/18 07:14) Saline Lock/Iv-Start (02/05/18 07:14) Ns Iv 1000 Ml (Sodium Chloride 0.9%) (02/05/18 07:14) Us Gallbladder 74589 (02/05/18 07:14) Urine Bedside (02/05/18 07:14) Ondansetron Injection (Zofran Injectio (02/05/18 07:30) Famotidine Injection (Pepcid Injection) (02/05/18 07:22) Ua Culture If Indicated (02/05/18 08:44) Medications Given in ED Current Medications Medications Dose Ordered Sig/Tiffanie Route Start Time Stop Time Status Last Admin Dose Admin Ondansetron HCl 4 mg ONCE ONCE IVP 02/05/18 07:30 02/05/18 07:31 DC 02/05/18 07:40 4 MG Sodium Chloride 1,000 ml @ 0 mls/hr Q0M ONCE IV 02/05/18 07:14 02/05/18 07:17 DC 02/05/18 07:41 1,000 MLS/HR Vital Signs/I&O Vital Sign - Last 12Hours 02/05/18 07:01 Temp 97.2 Pulse 11 Resp 18 B/P (MAP) 129/106 (114) Pulse Ox 99 O2 Delivery Room Air Blood Pressure Mean: 114 Progress Note : Progress Note Seen and evaluated. IV, labs, normal saline 1 L bolus, Zofran 4 mg IV, Pepcid 20 mg IV and UCG ordered. Ultrasound gallbladder ordered. Monitor patient. 09: Ultrasound negative for gallbladder findings. Patient is better after Pepcid. I did discuss the case with Dr. Scott and he would like to see her in the office and they will get her set up for HIDA scan and scope as needed. UA was ordered due to cloudy urine noted on ECG evaluation. This does not show any significant findings currently. Discharged home with return precautions. Patient verbalize understanding instructions and agreement with plan. Departure Impression Impression: Primary Impression: Right upper quadrant abdominal pain Disposition: 01 HOME, SELF-CARE Condition: Improved Departure-Patient Inst. Decision time for Depature: 09:08 Referrals: JONATHON SCOTT BETHANY N MD (PCP/Family) Primary Care Physician Patient Instructions: Acute Abdomen (Belly Pain), Adult (DC) Add. Discharge Instructions: All discharge instructions reviewed with patient and/or family. Voiced understanding. Call Dr. Scott's office today for appointment. They should get you set up for HIDA scan and follow-up appointment. Eat a low-fat, non-spicy light diet. Drink plenty of fluids. Return for worsening, fever, vomiting, weakness, breathing problems or other concerns as needed. Copy Copies To 1: JONATHON SCOTT TIMOTHY D MD Feb 05, 2018 07:32
[2018-02-05 07:50] LABS: BASOPHILS % (AUTO) 0 % (0-10); EOSINOPHILS # (AUTO) 0.2 10^3/uL (0.0-0.3); EOSINOPHILS % (AUTO) 2 % (0-10); HEMATOCRIT 37 % (35-52); HEMOGLOBIN 12.4 G/DL (11.5-16.0); LYMPHOCYTES # (AUTO) 3.3 X 10^3 (1.0-4.0); LYMPHOCYTES % (AUTO) 37 % (12-44); MEAN CORPUSCULAR HEMOGLOBIN 28 PG (25-34); MEAN CORPUSCULAR HGB CONC 33 G/DL (32-36); MEAN CORPUSCULAR VOLUME 86 FL (80-99); MEAN PLATELET VOLUME 10.8 FL (7.4-10.4); MONOCYTES # (AUTO) 0.7 X 10^3 (0.0-1.0); MONOCYTES % (AUTO) 8 % (0-12); NEUTROPHILS # (AUTO) 4.5 X 10^3 (1.8-7.8); NEUTROPHILS % (AUTO) 52 % (42-75); PLATELET COUNT 412 10^3/uL (130-400); RED BLOOD COUNT 4.37 10^6/uL (4.35-5.85); RED CELL DISTRIBUTION WIDTH 13.3 % (10.0-14.5); WHITE BLOOD COUNT 8.7 10^3/uL (4.3-11.0)
[2018-02-05 08:05] LABS: ALANINE AMINOTRANSFERASE 10 U/L (0-55); ALBUMIN 3.9 GM/DL (3.2-4.5); ALKALINE PHOSPHATASE 67 U/L (40-136); AMYLASE 47 U/L (25-125); BILIRUBIN,TOTAL 0.6 MG/DL (0.1-1.0); BUN/CREATININE RATIO 11; CALCIUM 9.1 MG/DL (8.5-10.1); CARBON DIOXIDE 21 MMOL/L (21-32); CHLORIDE 108 MMOL/L (98-107); CREATININE SERUM 0.89 MG/DL (0.60-1.30); GFR ESTIMATED > 60; GLUCOSE 92 MG/DL (70-105); LIPASE 25 U/L (8-78); POTASSIUM 3.9 MMOL/L (3.6-5.0); SODIUM 138 MMOL/L (135-145)
--- NOTE | 2018-02-05 08:47 | Diagnostic Imaging Report ---
EXAM: RIGHT UPPER QUADRANT ULTRASOUND DATE: 02/05/2018. COMPARISON: 08/26/2013. INDICATION: 22-year-old female, abdominal pain. PROCEDURE: Two-dimensional grayscale and color doppler ultrasound examination of the right upper quadrant is performed. FINDINGS: Liver: The liver is of normal size and echotexture without solid or cystic masses. Bile ducts and gallbladder: There is no pericholecystic fluid, gallbladder wall thickening or gallstones. The gallbladder wall measures 0.2 cm. There is no intrahepatic or extrahepatic biliary ductal dilation. The common bile duct measures 0.2 cm. Right kidney: Unremarkable right kidney. No hydronephrosis. The right kidney measures 10.5 cm x 4.4 cm x 5.4 cm. Pancreas: The pancreas is not well seen. IMPRESSION: 1. No evidence of cholelithiasis or acute cholecystitis. 2. Unremarkable sonographic appearance of the liver. 3. No biliary ductal dilation. 4. The pancreas is not well seen. Dictated by: Dictated on workstation # [id number]
[2018-02-05 08:48] LABS: BILIRUBIN,URINE NEGATIVE (NEGATIVE); CLARITY,URINE CLEAR; COLOR,URINE YELLOW; GLUCOSE, URINE (UA) NEGATIVE (NEGATIVE); KETONES,URINE NEGATIVE (NEGATIVE); LEUKOCYTE ESTERASE ,URINE 1+ (NEGATIVE); NITRITE,URINE NEGATIVE (NEGATIVE); PH,URINE 6 (5-9); PROTEIN,URINE NEGATIVE (NEGATIVE); UROBILINOGEN,URINE NORMAL (NORMAL)
[2018-02-05 08:59] LABS: BACTERIA,URINE FEW /HPF; RBC,URINE RARE /HPF; WBC,URINE 0-2 /HPF
[2018-02-05 09:17] VITALS: BP 120/62
== END 2018-02-05 09:16 | disposition home or self-care (01) ==
LOC: EDUNIT# 06:56 → ER 06:59
DX: R10.11 Right upper quadrant pain (principal); F32.9 Major depressive disorder, single episode, unspecified; Z82.49 Family history of ischemic heart disease and other diseases of the circulatory system; Z91.048 Other nonmedicinal substance allergy status; Z87.59 Personal history of other complications of pregnancy, childbirth and the puerperium
CPT/HCPCS: 36415; 76705; 80053; 81000; 82150; 83690; 84703; 85025; 96361; 96374; 96375

== ENCOUNTER → 2018-02-06 | Outpatient (CLI) | payer OTHER ==
[~2018-02-06] MED LIST changes: +CATHETER FLUSH 10 ML SYR IV PRN; +LEXAPRO
--- NOTE | 2018-02-06 17:57 | Diagnostic Imaging Report ---
INDICATION: Abdominal pain. TECHNIQUE: The patient was administered 5.5 mCi technetium 99m Choletec and imaging over the abdomen was performed. Next, the patient ingested 8 ounces of Ensure plus at 45 minutes and a gallbladder ejection fraction was calculated. FINDINGS: There is homogeneous uptake of activity by the liver. Prompt excretion of activity into the common duct and gallbladder is seen. There is normal passage of activity into the small bowel. Gallbladder ejection fraction is calculated to be 81%. IMPRESSION: 1. No evidence of cystic duct or common bile duct obstruction. 2. Gallbladder ejection fraction of 81%. Dictated by: Dictated on workstation # [id number]
--- NOTE | 2018-02-07 10:39 | Physician Query-Final Dx ---
CRUZ PULIDO 02/07/18 1039: Clinic Account Progress/Dx Physician Query: Please give the location of the patients abd pain thank you Date of Service Feb 06, 2018 at 09:33 JONATHON POSEY DO 02/08/18 2152: Clinic Account Progress/Dx Physician Query: Please give diagnosis (right) DIAGNOSIS: Diagnosis right upper quadrant pain CRUZ PULIDO Feb 07, 2018 10:39 JONATHON POSEY DO Feb 08, 2018 21:52
== END ==
LOC: CARD 09:33
PROVIDERS: ATTEND Surgery
DX: R10.11 Right upper quadrant pain (principal)
CPT/HCPCS: 78227

== ENCOUNTER 2018-02-13 11:10 | Outpatient (CLI) | payer SELFPAY ==
[~2018-02-13] VITALS: Ht 157.5 cm; Wt 126.6 kg
[~2018-02-13 11:10] MED LIST changes: -CATHETER FLUSH 10 ML SYR IV PRN
[2018-02-13] MEDS ORDERED: MEDR104D2 SQ (13:54)
[2018-02-13] MEDS ORDERED: ESCI20TA PO (13:54)
[2018-02-14] MEDS ORDERED: ACHD5005 PO (10:20)
[2018-02-14] MEDS ORDERED: DOCU-143 PO (10:20)
== END 2018-02-13 14:03 ==
LOC: PREOP 11:10
PROVIDERS: ATTEND Surgery
DX: Z01.818 Encounter for other preprocedural examination (principal); K82.8 Other specified diseases of gallbladder

== ENCOUNTER 2018-03-02 09:28 | Emergency (ER) | payer OTHER ==
[~2018-03-02] VITALS: Ht 157.5 cm; Wt 124.7 kg
[~2018-03-02 09:28] MED LIST changes: +DOCU-143 PO; +ESCI20TA PO; +MEDR104D2 SQ
--- NOTE | 2018-03-02 10:07 | ED Cardiac General ---
History of Present Illness General Chief Complaint: Chest Pain Stated Complaint: CHEST PAIN Source: patient Exam Limitations: no limitations History of Present Illness Date Seen by Provider: Mar 02, 2018 Time Seen by Provider: 10:02 Initial Comments This 22-year-old white female presents with complaint of chest pain began last night. The patient was asleep when the a.m. anterior sharp moderately severe chest pain awoke her from sleep. There is no radiation the pain. There is been no associated shortness of breath, diaphoresis, nausea, or palpitations. The patient had similar chest pains several years ago. She was monitored in the hospital for several days and no significant pathology was identified. Patient's past medical history includes reflux. She had a cholecystectomy 2 weeks ago. There is a family history of heart disease. The patient is not a smoker. Allergies and Home Medications Allergies Coded Allergies: No Known Drug Allergies (Unverified , 02/13/18) Home Medications Docusate Sodium 100 Mg Capsule, 100 MG PO DAILY Prescribed by: JONATHON POSEY on 02/14/18 1020 Escitalopram Oxalate 20 Mg Tablet, 20 MG PO DAILY, (Reported) Hydrocodone Bit/Acetaminophen 1 Tab Tab, 1 TAB PO Q4H PRN Prescribed by: JONATHON POSEY on 02/14/18 1020 Medroxyprogesterone Acetate 104 Mg/0.65 Ml Syringe, 104 MG SQ Q 3MO, (Reported) Patient Home Medication List Home Medication List Reviewed: Yes Review of Systems Constitutional: No chills, No fever EENTM: No Symptoms Reported Respiratory: Denies Cough, Denies SOA With Exertion, Denies SOA at Rest Cardiovascular: See HPI, Chest Pain Gastrointestinal: Denies Abdominal Pain, Denies Diarrhea, Denies Nausea, Denies Vomiting Genitourinary: No Symptoms Reported Musculoskeletal: No back pain Skin: No rash Psychiatric/Neurological: Depressed Endocrine: No Symptoms Reported Hematologic/Lymphatic: No Symptoms Reported Past Xjlhsln-Nmslmr-Ljvjkb Hx Patient Social History Alcohol Beverage of Choice: Rum Former Smoker, Quit: Feb 13, 2014 Recent Foreign Travel: No Contact w/Someone Who Travel: No Recent Hopitalizations: No Immunizations Up To Date Tetanus Booster (TDap): Less than 5yrs PED Vaccines UTD: Yes Date of Pneumonia Vaccine: Jan 31, 2011 Date of Influenza Vaccine: Sep 22, 2013 Seasonal Allergies Seasonal Allergies: No Past Medical History Surgeries: Yes Section Respiratory: No Cardiac: No Neurological: No Reproductive Disorders: No Female Reproductive Disorders: Denies Sexually Transmitted Disease: No HIV/AIDS: No Gastrointestinal: No Gastroesophageal Reflux, Gall Bladder Disease Musculoskeletal: No Endocrine: No Loss of Vision: Bilateral Hearing Impairment: Denies Cancer: No Psychosocial: Yes Depression Integumentary: No Blood Disorders: No Adverse Reaction/Blood Tranf: No (N/A) Family Medical History Reviewed Nursing Family Hx Cardiovascular disease 19 FATHER Hypertension 19 FATHER 19 MOTHER Heart Disease, Hypertension Physical Exam Vital Signs Vital Signs - First Documented 03/02/18 10:04 Temp 97.2 Pulse 101 Resp 20 B/P (MAP) 135/96 (109) Pulse Ox 99 Capillary Refill : General Appearance: WD/WN, Mild Distress HEENT: Normal ENT Inspection Neck: Normal Inspection Respiratory: Lungs Clear Cardiovascular: Regular Rate, Rhythm Gastrointestinal: Normal Bowel Sounds, Non Tender Extremity: Normal Inspection Neurologic/Psychiatric: Alert, Oriented x3, No Motor/Sensory Deficits, Normal Mood/Affect Skin: Normal Color, Warm/Dry Progress/Results/Core Measures Lab Results Laboratory Tests Test 03/02/18 09:59 Range/Units White Blood Count 7.8 4.3-11.0 10^3/uL Red Blood Count 4.52 4.35-5.85 10^6/uL Hemoglobin 12.5 11.5-16.0 G/DL Hematocrit 38 35-52 % Mean Corpuscular Volume 85 80-99 FL Mean Corpuscular Hemoglobin 28 25-34 PG Mean Corpuscular Hemoglobin Concent 33 32-36 G/DL Red Cell Distribution Width 13.6 10.0-14.5 % Platelet Count 439 H 130-400 10^3/uL Mean Platelet Volume 10.3 7.4-10.4 FL Neutrophils (%) (Auto) 61 42-75 % Lymphocytes (%) (Auto) 28 12-44 % Monocytes (%) (Auto) 9 0-12 % Eosinophils (%) (Auto) 3 0-10 % Basophils (%) (Auto) 0 0-10 % Neutrophils # (Auto) 4.8 1.8-7.8 X 10^3 Lymphocytes # (Auto) 2.2 1.0-4.0 X 10^3 Monocytes # (Auto) 0.7 0.0-1.0 X 10^3 Eosinophils # (Auto) 0.2 0.0-0.3 10^3/uL Basophils # (Auto) 0.0 0.0-0.1 10^3/uL Sodium Level 139 135-145 MMOL/L Potassium Level 4.8 3.6-5.0 MMOL/L Chloride Level 112 H 98-107 MMOL/L Carbon Dioxide Level 17 L 21-32 MMOL/L Anion Gap 10 5-14 MMOL/L Blood Urea Nitrogen 9 7-18 MG/DL Creatinine 0.78 0.60-1.30 MG/DL Estimat Glomerular Filtration Rate > 60 BUN/Creatinine Ratio 12 Glucose Level 89 70-105 MG/DL Calcium Level 9.2 8.5-10.1 MG/DL Total Bilirubin 0.2 0.1-1.0 MG/DL Aspartate Amino Transf (AST/SGOT) 20 5-34 U/L Alanine Aminotransferase (ALT/SGPT) 14 0-55 U/L Alkaline Phosphatase 60 40-136 U/L Troponin I < 0.30 <0.30 NG/ML Total Protein 7.4 6.4-8.2 GM/DL Albumin 4.0 3.2-4.5 GM/DL Lipase 34 8-78 U/L My Orders Orders - ZO GARCIA MD Ekg Tracing (03/02/18 09:56) Troponin I (03/02/18 10:07) Comprehensive Metabolic Panel (03/02/18 10:07) Cbc With Automated Diff (03/02/18 10:07) Lipase (03/02/18 10:07) Chest 1 View, Ap/Pa Only (03/02/18 10:07) Aspirin Chewable Tablet (Baby Aspirin Ch (03/02/18 10:15) Nitroglycerin 0.4 Mg Btl 25's (Nitrostat (03/02/18 10:15) Lidocaine 2% Viscous 15 Ml (Xylocaine Vi (03/02/18 10:15) Antacid Suspension (Mylanta Suspension (03/02/18 10:15) Ns Iv 1000 Ml (Sodium Chloride 0.9%) (03/02/18 10:15) Medications Given in ED Current Medications Medications Dose Ordered Sig/Tiffanie Route Start Time Stop Time Status Last Admin Dose Admin Al Hydrox/Mg Hydrox/Simethicone 30 ml ONCE ONCE PO 03/02/18 10:15 03/02/18 10:16 DC 03/02/18 10:22 30 ML Aspirin 324 mg ONCE ONCE PO 03/02/18 10:15 03/02/18 10:16 DC 03/02/18 10:23 324 MG Lidocaine HCl 5 ml ONCE ONCE PO 03/02/18 10:15 03/02/18 10:16 DC 03/02/18 10:22 5 ML Nitroglycerin 1 TAB Q 5 MIN X 3 NEEDED PRN SL 03/02/18 10:15 03/02/18 10:22 0.4 MG Vital Signs/I&O 03/02/18 10:04 Temp 97.2 Pulse 101 Resp 20 B/P (MAP) 135/96 (109) Pulse Ox 99 Progress Note : Time: 11:27 Progress Note The patient's EKG and troponin were normal. The rest of the patient's laboratory evaluation was unremarkable. The patient received an aspirin on arrival and was subsequently given nitroglycerin sublingually which she said improved her chest pain area patient remained pain-free in the emergency department after the nitroglycerin. Patient was given a GI cocktail but it was difficult to know if this affected her pain or not. The patient has been under significant stress. She was kicked out of her parent 's house last night and has lost custody of her children. I discussed findings with the patient at some length. I do not think that the patient is having cardiac pain but more likely pain from reflux. I started the patient on Protonix and asked that she follow-up with her primary care physician at [facility], Dr. Moore, on Sunday. Departure Impression Primary Impression: Gastroesophageal reflux disease Qualified Codes: K21.9 - Gastro-esophageal reflux disease without esophagitis Disposition: HOME, SELF-CARE Condition: Improved Departure-Patient Inst. Decision time for Depature: 11:30 Referrals: ANNA MOORE MD (PCP/Family) Primary Care Physician Patient Instructions: Acid Reflux (Gastroesophageal Reflux Disease), Adult (DC) Add. Discharge Instructions: Protonix as prescribed. Return if any further episodes. Follow-up with Dr. Moore on Sunday. All discharge instructions reviewed with patient and/or family. Voiced understanding. ZO GARCIA MD Mar 02, 2018 10:07
[2018-03-02] MEDS ORDERED: ANTACID SUSP 30 ML UDC (MYLANTA) PO ONE (10:15)
[2018-03-02] MEDS ORDERED: ASPIRIN 81 MG CHEW (CHILDREN'S ASA) PO ONE (10:15)
[2018-03-02] MEDS ORDERED: NS IV 1000 ML 1,000 ML IV SCH (10:15)
[2018-03-02] MEDS ORDERED: LIDOCAINE 2% VISCOUS 15 ML UDC PO ONE (10:15)
[2018-03-02] MEDS ORDERED: NITROGLYCERIN 0.4 MG SL TABS BTL 25'S SL PRN (10:15)
[2018-03-02 10:31] LABS: BASOPHILS % (AUTO) 0 % (0-10); EOSINOPHILS # (AUTO) 0.2 10^3/uL (0.0-0.3); EOSINOPHILS % (AUTO) 3 % (0-10); HEMATOCRIT 38 % (35-52); HEMOGLOBIN 12.5 G/DL (11.5-16.0); LYMPHOCYTES # (AUTO) 2.2 X 10^3 (1.0-4.0); LYMPHOCYTES % (AUTO) 28 % (12-44); MEAN CORPUSCULAR HEMOGLOBIN 28 PG (25-34); MEAN CORPUSCULAR HGB CONC 33 G/DL (32-36); MEAN CORPUSCULAR VOLUME 85 FL (80-99); MEAN PLATELET VOLUME 10.3 FL (7.4-10.4); MONOCYTES # (AUTO) 0.7 X 10^3 (0.0-1.0); MONOCYTES % (AUTO) 9 % (0-12); NEUTROPHILS # (AUTO) 4.8 X 10^3 (1.8-7.8); NEUTROPHILS % (AUTO) 61 % (42-75); PLATELET COUNT 439 10^3/uL (130-400); RED BLOOD COUNT 4.52 10^6/uL (4.35-5.85); RED CELL DISTRIBUTION WIDTH 13.6 % (10.0-14.5); WHITE BLOOD COUNT 7.8 10^3/uL (4.3-11.0)
--- NOTE | 2018-03-02 10:32 | Diagnostic Imaging Report ---
EXAM: CHEST 1 VIEW, AP/PA ONLY INDICATION: Chest pain and left arm numbness. COMPARISON: Chest radiographs 08/28/2013. . FINDINGS: Normal heart size and pulmonary vascularity. No focal pulmonary opacity, pleural effusion or pneumothorax. No acute osseous findings IMPRESSION: No acute cardiopulmonary findings. Dictated by: Dictated on workstation # [id number]
[2018-03-02 10:44] LABS: ALANINE AMINOTRANSFERASE 14 U/L (0-55); ALKALINE PHOSPHATASE 60 U/L (40-136); BILIRUBIN,TOTAL 0.2 MG/DL (0.1-1.0); BUN/CREATININE RATIO 12; CALCIUM 9.2 MG/DL (8.5-10.1); CARBON DIOXIDE 17 MMOL/L (21-32); CHLORIDE 112 MMOL/L (98-107); CREATININE SERUM 0.78 MG/DL (0.60-1.30); GFR ESTIMATED > 60; GLUCOSE 89 MG/DL (70-105); LIPASE 34 U/L (8-78); POTASSIUM 4.8 MMOL/L (3.6-5.0); SODIUM 139 MMOL/L (135-145); TOTAL PROTEIN 7.4 GM/DL (6.4-8.2)
[2018-03-02 11:40] VITALS: BP 148/95
--- OUTSIDE RECORDS SUMMARY | 2018-03-03 09:56 | XMS REPORT | Continuity of Care Document ---
Author Author [facility] Address Unknown Phone Unavailable Allergies Active Description Code Type Severity Reaction Onset Reported/Identified Relationship to Patient Clinical Status Yes [id number] (POLLEN EXTRACTS) [id number] (POLLEN EXTRACTS) Mild N/A Yes No Known Drug Allergies [id number] Drug Allergy Unknown N/A 02/13/2018 Medications There is no data. Problems Date [...] TRAVIS K 465.9 UPPER RESPIRATORY INFECTION 10/29/2008 HECTRO JETT MD 462 PHARYNGITIS ACUTE 10/29/2008 HECTOR [...] N 465.9 UPPER RESPIRATORY INFECTION 10/29/2008 SABRINA OCCUPATIONAL MEDICINE PHYSICIAN, LUANN A 462 PHARYNGITIS ACUTE 10/29/2008 SABRINA OCCUPATIONAL MEDICINE PHYSICIAN, LUANN A 465.9 UPPER RESPIRATORY INFECTION 10/29/2008 SABRINA OCCUPATIONAL MEDICINE PHYSICIAN, LUANN A 462 PHARYNGITIS ACUTE 10/29/2008 SABRINA OCCUPATIONAL MEDICINE PHYSICIAN, LUANN A 465.9 UPPER RESPIRATORY INFECTION 10/29/2008 PERDOOM DO, TRAVIS K 462 PHARYNGITIS ACUTE 10/29/2008 PERDOMO DO, TRAVIS K 465.9 UPPER RESPIRATORY INFECTION 10/29/2008 PERDOMO DO, TRAVIS K 462 PHARYNGITIS ACUTE 10/29/2008 PERDOMO DO, TRAVIS K 465.9 UPPER RESPIRATORY INFECTION 10/29/2008 SIERRA OCCUPATIONAL MEDICINE PHYSICIAN, CHANG R 462 PHARYNGITIS ACUTE 10/29/2008 ESQUIVEL OCCUPATIONAL MEDICINE PHYSICIAN, CHANG R 465.9 UPPER RESPIRATORY INFECTION 10/29/2008 [...] MOORE MD V72.3 GYNECOLOGICAL EXAMINATION 06/16/2009 SABRINA OCCUPATIONAL MEDICINE PHYSICIAN, LUANN A V25.01 CONTRACEPTION, ORAL / CONTROL 06/16/2009 SABRINA OCCUPATIONAL MEDICINE PHYSICIAN, LUANN A V72.3 GYNECOLOGICAL EXAMINATION 06/16/2009 SABRINA OCCUPATIONAL MEDICINE PHYSICIAN, LUANN A V25.01 CONTRACEPTION, ORAL / CONTROL 06/16/2009 SABRINA OCCUPATIONAL MEDICINE PHYSICIAN, LUANN A V72.3 GYNECOLOGICAL EXAMINATION 06/16/2009 PERDOMO DO, TRAVIS K V25.01 CONTRACEPTION, ORAL / CONTROL 06/16/2009 PERDOMO DO, TRAVIS K V72.3 GYNECOLOGICAL EXAMINATION 06/16/2009 PERDOMO DO, TRAVIS K V25.01 CONTRACEPTION, ORAL / CONTROL 06/16/2009 PERDOMO DO, TRAVIS K V72.3 GYNECOLOGICAL EXAMINATION 06/16/2009 SIERRA OCCUPATIONAL MEDICINE PHYSICIAN, CHANG R V25.01 CONTRACEPTION, ORAL / CONTROL 06/16/2009 SIERRA OCCUPATIONAL MEDICINE PHYSICIAN, CHANG R V72.3 GYNECOLOGICAL EXAMINATION 06/16/2009 PERDOMO DO, TRAVIS K V25.01 CONTRACEPTION, ORAL / CONTROL 06/16/2009 PERDOMO DO, TRAVIS K V72.3 GYNECOLOGICAL EXAMINATION 06/27/2010 STANLEY CERVANTES APRN V72.31 FORENSIC SPECIALIST EXAM, ROUTINE 06/27/2010 V72.31 FORENSIC SPECIALIST EXAM, ROUTINE 06/27/2010 V72.31 FORENSIC SPECIALIST EXAM, ROUTINE 06/27/2010 V72.31 FORENSIC SPECIALIST EXAM, ROUTINE 06/27/2010 SABRINA GREENBERG LUANN A V72.31 FORENSIC SPECIALIST EXAM, ROUTINE 06/27/2010 PERDOMO DO, TRAVIS K V72.31 FORENSIC SPECIALIST EXAM, ROUTINE 06/27/2010 PERDOMO DO, TRAVIS K V72.31 FORENSIC SPECIALIST EXAM, ROUTINE 06/27/2010 PERDOMO DO, TRAVIS K V72.31 FORENSIC SPECIALIST EXAM, ROUTINE 06/27/2010 PERDOMO DO, TRAVIS K V72.31 FORENSIC SPECIALIST EXAM, ROUTINE 06/27/2010 HECTOR JETT MD V72.31 FORENSIC SPECIALIST EXAM, ROUTINE 06/27/2010 PERDOMO DO TRAVIS K V72.31 FORENSIC SPECIALIST EXAM, ROUTINE 06/27/2010 PERDOMO DO, TRAVIS K V72.31 FORENSIC SPECIALIST EXAM, ROUTINE 06/27/2010 ANNA MOORE MD V72.31 FORENSIC SPECIALIST EXAM, ROUTINE 06/27/2010 ANNA MOORE MD V72.31 FORENSIC SPECIALIST EXAM, ROUTINE 06/27/2010 PERDOMO DO TRAVIS K V72.31 FORENSIC SPECIALIST EXAM, ROUTINE 06/27/2010 ANNA MOORE MD V72.31 FORENSIC SPECIALIST EXAM, ROUTINE 06/27/2010 SABRINA OCCUPATIONAL MEDICINE PHYSICIANDANNY CormierIDI A V72.31 FORENSIC SPECIALIST EXAM, ROUTINE 06/27/2010 SABRINA APRN, LUANN A V72.31 FORENSIC SPECIALIST EXAM, ROUTINE 06/27/2010 PERDOMO DO TRAVIS K V72.31 FORENSIC SPECIALIST EXAM, ROUTINE 06/27/2010 PERDOMO DO, TRAVIS K V72.31 FORENSIC SPECIALIST EXAM, ROUTINE 06/27/2010 CHANG ESQUIVEL APRN V72.31 FORENSIC SPECIALIST EXAM, ROUTINE 06/27/2010 PERDOMO DO TRAVIS K V72.31 FORENSIC SPECIALIST EXAM, ROUTINE 03/29/2011 STANLEY CERVANTES APRN S [...] TRAVIS K V74.1 TB SCREENING 03/29/2011 HECTOR EJTT MD V74.1 TB SCREENING 03/29/2011 PERDOMO DO, TRAVIS K V74.1 TB SCREENING 03/29/2011 PERDOMO DO, TRAVIS K V74.1 TB SCREENING 03/29/2011 ANNA MOORE MD V74.1 TB SCREENING 03/29/2011 ANNA MOORE MD V74.1 TB SCREENING 03/29/2011 PERDOMO DO, TRAVIS K V74.1 TB SCREENING 03/29/2011 ANNA MOORE MD V74.1 TB SCREENING 03/29/2011 SABRINA OCCUPATIONAL MEDICINE PHYSICIAN, LUANN A V74.1 TB SCREENING 03/29/2011 SABRINA OCCUPATIONAL MEDICINE PHYSICIAN, LUANN A V74.1 TB SCREENING 03/29/2011 PERDOMO DO, TRAVIS K V74.1 TB SCREENING 03/29/2011 PERDOMO DO, TRAVIS K V74.1 TB SCREENING 03/29/2011 SIERRA GREENBERGBILLCHANG R V74.1 TB SCREENING 03/29/2011 PERDOMO DO, TRAVIS K V74.1 TB SCREENING 05/14/2012 HELEN GREENBERG, STANLEY S V22.0 , NORMAL FIRST 05/14/2012 V22.0 , NORMAL FIRST 05/14/2012 V22.0 , NORMAL FIRST 05/14/2012 V22.0 , NORMAL FIRST 05/14/2012 SABRINA OCCUPATIONAL MEDICINE PHYSICIAN, LUANN A V22.0 , NORMAL FIRST 05/14/2012 [...] N V22.0 , NORMAL FIRST 05/14/2012 SABRINA OCCUPATIONAL MEDICINE PHYSICIAN, LUANN A V22.0 , NORMAL FIRST 05/14/2012 SABRINA OCCUPATIONAL MEDICINE PHYSICIAN, LUANN A V22.0 , NORMAL FIRST 05/14/2012 PERDOMO DO, TRAVIS K V22.0 , NORMAL FIRST 05/14/2012 PERDOMO DO, TRAVIS K V22.0 , NORMAL FIRST 05/14/2012 SIERRA GREENBERG CHANG R V22.0 , NORMAL FIRST 05/14/2012 PERDOMO DO, TRAVIS K V22.0 , NORMAL FIRST 05/24/2012 HELEN OCCUPATIONAL MEDICINE PHYSICIAN STANLEY S 634.90 SPONTANEOUS UNSPECIFIED WITHOUT COMPLICATION 05/24/2012 HELEN OCCUPATIONAL MEDICINE PHYSICIAN, STANLEY S V25.02 GENERAL COUNSELING ON INITIATION OF OTHER CONTRACEPTIVE MEASURES 05/24/2012 634.90 SPONTANEOUS UNSPECIFIED WITHOUT COMPLICATION 05/24/2012 V25.02 GENERAL COUNSELING ON INITIATION OF OTHER CONTRACEPTIVE MEASURES 05/24/2012 634.90 SPONTANEOUS UNSPECIFIED WITHOUT COMPLICATION 05/24/2012 V25.02 GENERAL COUNSELING ON INITIATION OF OTHER CONTRACEPTIVE MEASURES 05/24/2012 634.90 SPONTANEOUS UNSPECIFIED WITHOUT COMPLICATION 05/24/2012 V25.02 GENERAL COUNSELING ON INITIATION OF OTHER CONTRACEPTIVE MEASURES 05/24/2012 SABRINA OCCUPATIONAL MEDICINE PHYSICIAN LUANN A 634.90 SPONTANEOUS UNSPECIFIED WITHOUT COMPLICATION 05/24/2012 SABRINA OCCUPATIONAL MEDICINE PHYSICIAN LUANN A V25.02 GENERAL COUNSELING ON INITIATION [...] INITIATION OF OTHER CONTRACEPTIVE MEASURES 05/24/2012 SABRINA OCCUPATIONAL MEDICINE PHYSICIAN, LUANN A 634.90 SPONTANEOUS UNSPECIFIED WITHOUT COMPLICATION 05/24/2012 SABRINA OCCUPATIONAL MEDICINE PHYSICIAN, LUANN A V25.02 GENERAL COUNSELING ON INITIATION OF OTHER CONTRACEPTIVE MEASURES 05/24/2012 SABRINA OCCUPATIONAL MEDICINE PHYSICIAN, LUANN A 634.90 SPONTANEOUS UNSPECIFIED WITHOUT COMPLICATION 05/24/2012 SABRINA OCCUPATIONAL MEDICINE PHYSICIAN, LUANN A V25.02 GENERAL COUNSELING ON INITIATION OF OTHER CONTRACEPTIVE MEASURES 05/24/2012 YANIRA PERDOMO DOA K 634.90 SPONTANEOUS UNSPECIFIED WITHOUT COMPLICATION 05/24/2012 YANIRA PERDOMO DOA K V25.02 GENERAL COUNSELING ON INITIATION OF OTHER CONTRACEPTIVE MEASURES 05/24/2012 LEANNE CANTOR TRAVIS K 634.90 SPONTANEOUS UNSPECIFIED WITHOUT COMPLICATION 05/24/2012 YANIRA PERDOMO DOA K V25.02 GENERAL COUNSELING ON INITIATION OF OTHER CONTRACEPTIVE MEASURES 05/24/2012 SIERRA OCCUPATIONAL MEDICINE PHYSICIAN, CHANG R 634.90 SPONTANEOUS UNSPECIFIED WITHOUT COMPLICATION 05/24/2012 ESQUIVEL OCCUPATIONAL MEDICINE PHYSICIAN, CHANG R V25.02 GENERAL COUNSELING ON INITIATION [...] K 787.01 NAUSEA WITH VOMITING 01/23/2013 YANIRA PERODMO DOA K 789.01 ABDOMINAL PAIN RIGHT UPPER [...] HIGH RISK W/ INSUFFICIENT CARE 06/17/2013 TRAVIS PEDROMO DO 649.13 OBESITY COMPLICATING CHILDBIRTH OR THE [...] TRAVIS K V74.5 STD SCREEN 07/01/2013 OSCAR TOGN, ANNA Cormier V74.5 STD SCREEN 07/01/2013 DANNY [...] 789.03 ABDOMINAL PAIN RIGHT LOWER QUADRANT 07/14/2013 PEDROMO DO, TRAVIS K 789.03 ABDOMINAL PAIN RIGHT LOWER QUADRANT 07/14/2013 OSCAR TONG, ANNA N 789.03 ABDOMINAL PAIN RIGHT LOWER QUADRANT 07/14/2013 OSCAR TONG, ANNA N 789.03 ABDOMINAL PAIN RIGHT LOWER QUADRANT 07/14/2013 PERDOMO DO, TRAVIS K 789.03 ABDOMINAL PAIN RIGHT LOWER QUADRANT 07/14/2013 OSCAR TONG, ANNA Cormier 789.03 ABDOMINAL PAIN RIGHT LOWER QUADRANT 07/14/2013 SABRINA OCCUPATIONAL MEDICINE PHYSICIAN, LUANN A 789.03 ABDOMINAL PAIN RIGHT LOWER QUADRANT 07/14/2013 SABRINA OCCUPATIONAL MEDICINE PHYSICIAN, LUANN A 789.03 ABDOMINAL PAIN RIGHT LOWER [...] Cormier V22.1 , NORMAL OTHER 07/15/2013 SABRINA OCCUPATIONAL MEDICINE PHYSICIAN, LUANN A V22.1 , NORMAL OTHER 07/15/2013 SABRINA OCCUPATIONAL MEDICINE PHYSICIAN, LUANN A V22.1 , NORMAL OTHER 07/15/2013 PERDOMO DO, TRAVIS K V22.1 , NORMAL OTHER 07/15/2013 PERDOMO DO, TRAVIS K V22.1 , NORMAL OTHER 07/15/2013 ESQUIVEL OCCUPATIONAL MEDICINE PHYSICIAN, CHANG R V22.1 , NORMAL OTHER 07/15/2013 [...] ANNA Cormier V06.1 TDAP DX 08/12/2013 SABRINA OCCUPATIONAL MEDICINE PHYSICIAN, LUANN A V04.81 FLU SHOT 08/12/2013 SABRINA OCCUPATIONAL MEDICINE PHYSICIAN, LUANN A V06.1 TDAP DX 08/12/2013 SABRINA OCCUPATIONAL MEDICINE PHYSICIAN, LUANN A V04.81 FLU SHOT 08/12/2013 SABRINA OCCUPATIONAL MEDICINE PHYSICIAN, LUANN A V06.1 TDAP DX 08/12/2013 PERDOMO DO, TRAVIS K V04.81 FLU SHOT 08/12/2013 PERDOMO DO, TRAVIS K V06.1 TDAP DX 08/12/2013 PERDOMO DO, TRAVIS K V04.81 FLU SHOT 08/12/2013 PERDOMO DO, TRAVIS K V06.1 TDAP DX 08/12/2013 ESQUIVEL OCCUPATIONAL MEDICINE PHYSICIAN, CHANG R V04.81 FLU SHOT 08/12/2013 ESQUIVEL OCCUPATIONAL MEDICINE PHYSICIAN, CHANG R V06.1 TDAP DX 08/12/2013 PERDOMO [...] Cormier V65.11 NEW MOMMY VISIT 09/23/2013 SABRINA OCCUPATIONAL MEDICINE PHYSICIAN, LUANN A V65.11 NEW MOMMY VISIT 09/23/2013 SABRINA OCCUPATIONAL MEDICINE PHYSICIAN, LUANN A V65.11 NEW MOMMY VISIT 09/23/2013 [...] V25.09 CONTRACEPTIVE COUNSELING - GENERAL 10/30/2013 ESQUIVEL OCCUPATIONAL MEDICINE PHYSICIAN, CHANG R V25.09 CONTRACEPTIVE COUNSELING - GENERAL 10/30/2013 PERDOMO DO TRAVIS K V25.09 CONTRACEPTIVE COUNSELING - GENERAL 12/04/2013 SABRINA OCCUPATIONAL MEDICINE PHYSICIAN, LUANN A V24.2 F/U, ROUTINE 12/04/2013 SABRINA OCCUPATIONAL MEDICINE PHYSICIAN, LUANN A V25.9 CONTRACEPTION MANAGEMENT 12/04/2013 SABRINA OCCUPATIONAL MEDICINE PHYSICIAN, LUANN A V24.2 F/U, ROUTINE 12/04/2013 SABRINA OCCUPATIONAL MEDICINE PHYSICIAN, LUANN A V25.9 CONTRACEPTION MANAGEMENT 12/04/2013 PERDOMO [...] PERSONAL HISTORY OF OTHER DISEASES OF TH 02/05/2018 LATONIA LOGAN MD Ot F32.9 MAJOR DEPRESSIVE DISORDER, SINGLE EPISOD 02/05/2018 LATONIA LOGAN MD Ot R10.11 RIGHT UPPER QUADRANT PAIN 02/05/2018 LATONIA LOGAN MD Ot Z82.49 FAMILY HX OF ISCHEM HEART DIS AND OTH DI 02/05/2018 LATONIA LOGAN MD Ot Z87.59 PERSONAL HISTORY OF COMP OF PREG, CHLDBR 02/05/2018 LATONIA LOGAN MD Ot Z91.048 OTHER NONMEDICINAL SUBSTANCE ALLERGY STA 02/07/2018 LATONIA LOGAN MD Ot F32.9 MAJOR DEPRESSIVE DISORDER, SINGLE EPISOD 02/07/2018 LATONIA LOGAN MD Ot R10.11 RIGHT UPPER QUADRANT PAIN 02/07/2018 LATONIA LOGAN MD Ot Z82.49 FAMILY HX OF ISCHEM HEART DIS AND OTH DI 02/07/2018 LATONIA LOGAN MD Ot Z87.59 PERSONAL HISTORY OF COMP OF PREG, CHLDBR 02/07/2018 LATONIA LOGAN MD Ot Z91.048 OTHER NONMEDICINAL SUBSTANCE ALLERGY STA 02/07/2018 JASPREET TO MD Ot L29.9 PRURITUS, UNSPECIFIED 02/07/2018 YOUSUF TONG, JASPREET Del Cid Ot R21 RASH AND OTHER NONSPECIFIC SKIN ERUPTION 02/07/2018 JASPREET TO MD Ot Z82.49 FAMILY HX OF ISCHEM HEART DIS AND OTH DI 02/07/2018 JASPREET TO MD Ot Z87.19 PERSONAL HISTORY OF OTHER DISEASES OF TH 02/11/2018 JONATHON POSEY DO Ot R10.11 RIGHT UPPER QUADRANT PAIN 02/12/2018 JONATHON POSEY DO Ot R10.11 RIGHT UPPER QUADRANT PAIN 02/12/2018 JONATHON POSEY DO Ot R10.11 RIGHT UPPER QUADRANT PAIN 02/14/2018 JONATHON POSEY DO Ot R10.11 RIGHT UPPER QUADRANT PAIN 02/14/2018 JONATHON POSEY DO Ot R10.11 RIGHT UPPER QUADRANT PAIN 02/14/2018 JONATHON POSEY DO Ot E66.01 MORBID (SEVERE) OBESITY DUE TO EXCESS CA 02/14/2018 JONATHON POSEY DO Ot K82.8 OTHER SPECIFIED DISEASES OF GALLBLADDER 02/14/2018 JONATHON POSEY DO Ot Z68.43 BODY MASS INDEX (BMI) 50-59.9 , ADULT 02/14/2018 JONATHON POSEY DO Ot R10.11 RIGHT UPPER QUADRANT PAIN 02/15/2018 JASPREET TO MD Ot L29.9 PRURITUS, UNSPECIFIED 02/15/2018 JASPREET TO MD Ot R21 RASH AND OTHER NONSPECIFIC SKIN ERUPTION 02/15/2018 JASPREET TO MD Ot Z82.49 FAMILY HX OF ISCHEM HEART DIS AND OTH DI 02/15/2018 JASPREET TO MD Ot Z87.19 PERSONAL HISTORY OF OTHER DISEASES OF TH 02/15/2018 LATONIA LOGAN MD Ot F32.9 MAJOR DEPRESSIVE DISORDER, SINGLE EPISOD 02/15/2018 LATONIA LOGAN MD Ot R10.11 RIGHT UPPER QUADRANT PAIN 02/15/2018 LATONIA LOGAN MD Ot Z82.49 FAMILY HX OF ISCHEM HEART DIS AND OTH DI 02/15/2018 LATONIA LOGAN MD Ot Z87.59 PERSONAL HISTORY OF COMP OF PREG, CHLDBR 02/15/2018 LATONIA LOGAN MD Ot Z91.048 OTHER NONMEDICINAL SUBSTANCE ALLERGY STA 02/15/2018 JONATHON POSEY DO Ot K82.8 OTHER SPECIFIED DISEASES OF GALLBLADDER 02/15/2018 JONATHON POSEY DO Ot Z01.818 ENCOUNTER FOR OTHER PREPROCEDURAL EXAMIN 02/18/2018 JONATHON POSEY DO Ot E66.01 MORBID (SEVERE) OBESITY DUE TO EXCESS CA 02/18/2018 JONATHON POSEY DO Ot K81.1 CHRONIC CHOLECYSTITIS 02/18/2018 JONATHON POSEY DO Ot Z68.43 BODY MASS INDEX (BMI) 50-59.9 , ADULT 02/18/2018 JONATHON POSEY DO Ot E66.01 MORBID (SEVERE) OBESITY DUE TO EXCESS CA 02/18/2018 JONATHON POSEY DO Ot K81.1 CHRONIC CHOLECYSTITIS 02/18/2018 JONATHON POSEY DO Ot Z68.43 BODY MASS INDEX (BMI) 50-59.9 , ADULT Procedures Code [place] [address] ROUTINE VENIPUNCTURE 01/23/2013 03154 CBC 01/23/2013 17036 CMP 01/23/2013 [id number] GFR CALC (RESULT ONLY) 01/23/2013 54252 US GALLBLADDER 01/28/2013 22269 US ABDOMEN, LIMITED 02/13/2013 49154 HIDA SCAN 02/13/2013 33874 US OB - LIMITED 07/01/2013 11191 GC/CHLAM PROBE (STATE) 07/01/2013 24581 UA OB DIP 07/01/2013 86781 TRICHOMONAS (IN-HOUSE) 07/01/2013 26077 CULTURE UROGENITAL 07/03/2013 21539 UA W/ CULTURE IF INDICATED 07/14/2013 41543 UA OB DIP 07/15/2013 17825 CULTURE UROGENITAL 07/16/2013 98840 UA OB DIP 08/12/2013 15952 ROUTINE VENIPUNCTURE 08/26/2013 28540 UA OB DIP 08/26/2013 00892 CBC 08/26/2013 59252 GLUCOSE BETTY 1 HOUR 08/26/2013 28648 UA OB DIP 09/03/2013 42997 UA OB DIP 09/09/2013 49430 UA OB DIP 09/16/2013 11038 UA OB DIP 09/23/2013 52815 CULTURE GROUP B STREP VAG 09/23/2013 44453 ROUTINE VENIPUNCTURE 09/30/2013 37943 UA OB DIP 09/30/2013 27914 CBC 09/30/2013 [id number] GFR CALC (RESULT ONLY) 09/30/2013 61816 CMP 09/30/2013 96400 LDH 09/30/2013 90485 URIC ACID 09/30/2013 15419 URINE PROTEIN 24 HOUR 10/06/2013 29338 UA OB DIP 10/07/2013 92494 UA OB DIP 10/14/2013 51358 UA OB DIP 10/21/2013 04460 THERAPUTIC INJ SQ/IM 12/04/2013 19290 TEST, URINE (IN- HOUSE) 12/04/2013 J1050 DEPO PROVERA 12/04/2013 89107 TEST, URINE (IN- HOUSE) 03/02/2014 J1050 DEPO PROVERA 03/02/2014 94781 THERAPUTIC INJ SQ/IM 03/02/2014 39963 THERAPUTIC INJ SQ/IM 05/29/2014 J1050 DEPO PROVERA 05/29/2014 43942 TEST, URINE (IN- HOUSE) 05/29/2014 77900 TEST, URINE (IN- HOUSE) 08/20/2014 J1050 DEPO PROVERA 08/20/2014 16079 THERAPUTIC INJ SQ/IM 08/20/2014 92370 STREP A (IN-HOUSE) 10/21/2014 56207 TEST, URINE (IN- HOUSE) 11/05/2014 78475 THERAPUTIC INJ SQ/IM 11/05/2014 J1050 DEPO PROVERA 11/05/2014 Results Test Result Range TSH - 01/10/18 12:05 TSH 1.51 mIU/L NRG Complete blood count (CBC) with automated white blood cell (WBC) differential - 02/05/18 07:36 Blood leukocytes automated count (number/volume) 8.7 10*3/uL 4.3-11.0 Blood erythrocytes automated count (number/volume) 4.37 10*6/uL 4.35-5.85 Venous blood hemoglobin measurement (mass/volume) 12.4 g/dL 11.5-16.0 Blood hematocrit (volume fraction) 37 % 35-52 Automated erythrocyte mean corpuscular volume 86 [foz_us] 80-99 Automated erythrocyte mean corpuscular hemoglobin (mass per erythrocyte) 28 pg 25-34 Automated erythrocyte mean corpuscular hemoglobin concentration measurement ( mass/volume) 33 g/dL 32-36 Automated erythrocyte distribution width ratio 13.3 % 10.0-14.5 Automated blood platelet count (count/volume) 412 10*3/uL 130-400 Automated blood platelet mean volume measurement 10.8 [foz_us] 7.4-10.4 Automated blood neutrophils/100 leukocytes 52 % 42-75 Automated blood lymphocytes/100 leukocytes 37 % 12-44 Blood monocytes/100 leukocytes 8 % 0-12 Automated blood eosinophils/100 leukocytes 2 % 0-10 Automated blood basophils/100 leukocytes 0 % 0-10 Blood neutrophils automated count (number/volume) 4.5 10*3 1.8-7.8 Blood lymphocytes automated count (number/volume) 3.3 10*3 1.0-4.0 Blood monocytes automated count (number/volume) 0.7 10*3 0.0-1.0 Automated eosinophil count 0.2 10*3/uL 0.0-0.3 Automated blood basophil count (count/volume) 0.0 10*3/uL 0.0-0.1 Comprehensive metabolic panel - 02/05/18 07:36 Serum or plasma sodium measurement (moles/volume) 138 mmol/L 135-145 Serum or plasma potassium measurement (moles/volume) 3.9 mmol/L 3.6-5.0 Serum or plasma chloride measurement (moles/volume) 108 mmol/L 98-107 Carbon dioxide 21 mmol/L 21-32 Serum or plasma anion gap determination (moles/volume) 9 mmol/L 5-14 Serum or plasma urea nitrogen measurement (mass/volume) 10 mg/dL 7-18 Serum or plasma creatinine measurement (mass/volume) 0.89 mg/dL 0.60-1.30 Serum or plasma urea nitrogen/creatinine mass ratio 11 NRG Serum or plasma creatinine measurement with calculation of estimated glomerular filtration rate > NRG Serum or plasma glucose measurement (mass/volume) 92 mg/dL 70-105 Serum or plasma calcium measurement (mass/volume) 9.1 mg/dL 8.5-10.1 Serum or plasma total bilirubin measurement (mass/volume) 0.6 mg/dL 0.1-1.0 Serum or plasma alkaline phosphatase measurement (enzymatic activity/volume) 67 U/L 40-136 Serum or plasma aspartate aminotransferase measurement (enzymatic activity/ volume) 13 U/L 5-34 Serum or plasma alanine aminotransferase measurement (enzymatic activity/volume ) 10 U/L 0-55 Serum or plasma protein measurement (mass/volume) 7.0 g/dL 6.4-8.2 Serum or plasma albumin measurement (mass/volume) 3.9 g/dL 3.2-4.5 Serum or plasma amylase measurement (enzymatic activity/volume) - 02/05/18 07: 36 Serum or plasma amylase measurement (enzymatic activity/volume) 47 U /L 25-125 Lipase - 02/05/18 07:36 Lipase 25 U/L 8-78 Urine beta human chorionic gonadotropin (hCG) measurement - 02/14/18 08:25 Urine beta human chorionic gonadotropin (hCG) measurement NEGATIVE NEGATIVE Methicillin resistant Staphylococcus aureus (MRSA) screening culture - 08:38 Methicillin resistant Staphylococcus aureus (MRSA) screening culture NEG NRG Encounters ACCT No. Visit Date/Time Discharge Status Pt. Type Provider Facility Loc./Unit Complaint [id number] 11/05/2014 10:30:00 11/05/2014 23:59:59 [facility] Outpatient TRAVIS PERDOMO DO [id number] 10/21/2014 13:34:00 10/21/2014 23:59:59 CLS Outpatient CHANG ESQUIVEL APRN [id number] 08/20/2014 11:16:00 08/20/2014 23:59:59 CLS Outpatient PERDOMO DO TRAVIS Ng [id number] 05/29/2014 09:19:00 05/29/2014 23:59:59 CLS Outpatient PERDOMO DO TRAVIS Ng [id number] 03/02/2014 08:20:00 03/02/2014 23:59:59 CLS Outpatient LUANN BENNETT APRN [place] [id number] 12/04/2013 09:49:00 12/04/2013 23:59:59 CLS Outpatient SABRINA GREENBERG LUANN A [id number] 10/21/2013 15:15:00 10/21/2013 23:59:59 CLS Outpatient ANNA MOORE MD [id number] 10/14/2013 09:25:00 10/14/2013 23:59:59 CLS Outpatient ANNA MOORE MD [id number] 10/07/2013 10:30:00 10/07/2013 23:59:59 CLS Outpatient PERDOMO DOTRAVIS [id number] 10/07/2013 10:30:00 10/07/2013 23:59:59 CLS Outpatient ANNA MOORE MD [id number] 09/30/2013 14:30:00 09/30/2013 23:59:59 CLS Outpatient PERDOMO DOTRAVIS [id number] 09/23/2013 10:40:00 09/23/2013 23:59:59 CLS Outpatient HECTOR JETT MD [id number] 09/16/2013 09:26:00 09/16/2013 23:59:59 CLS Outpatient PERDOMO DOTRAVIS [id number] 09/09/2013 08:32:00 09/09/2013 23:59:59 CLS Outpatient PERDOMO DOTRAVIS [id number] 09/03/2013 15:03:00 09/03/2013 23:59:59 CLS Outpatient PERDOMO DOTRAVIS [id number] 08/26/2013 10:02:00 08/26/2013 23:59:59 CLS Outpatient PERDOMO DOTRAVIS [id number] 08/12/2013 09:18:00 08/12/2013 23:59:59 CLS Outpatient TRAVIS PERDOMO DO [id number] 07/14/2013 09:25:00 07/14/2013 23:59:59 CLS Outpatient LUANN BENNETT APRN [id number] 01/23/2013 11:40:00 01/23/2013 23:59:59 CLS Outpatient STANLEY CERVANTES APRN [id number] 07/15/2013 08:47:00 Document Registration [id number] 07/01/2013 11:23:00 Document Registration [id number] 06/17/2013 11:00:00 Document Registration [id number] 02/14/2018 08:03:00 02/14/2018 14:30:00 DIS Outpatient JONATHON POSEY DO [facility] SDC GALLBLADDER DYSKINESIA [id number] 02/13/2018 11:10:00 02/13/2018 14:03:00 DIS Outpatient JONATHON POSEY DO [facility] PREOP GALLBLADDER DYSKINESIA [id number] 02/06/2018 09:33:00 02/06/2018 23:59:59 CLS Outpatient JONATHON POSEY DO [facility] CARD ABD PAIN [id number] 02/05/2018 06:59:00 02/05/2018 09:16:00 DIS Outpatient LATONIA LOGAN MD [facility] ER UPPER ABD PAIN [id number] 02/01/2018 11:52:00 02/01/2018 23:59:59 CLS Preadmit ANNA MOORE MD [facility] RAD NONINTRACTABLE VOMITTING W NAUSEA [id number] 11/06/2017 18:03:00 11/06/2017 19:00:00 DIS Outpatient JASPREET TO MD [facility] ER FACIAL RASH/BURNING [id number] 01/11/2016 03:41:00 01/11/2016 06:06:00 DIS Emergency DORA OLIVAREZ DO [facility] ER FOUNTAIN [id number] 09/30/2015 21:33:00 09/30/2015 23:37:00 DIS Emergency FELICITA ROBLEDO [facility] ER POSS SPIDER BITE L ARM ;HEADACHE [id number] 10/21/2013 19:09:00 10/25/2013 15:03:00 DIS Inpatient [id number] 10/03/2013 21:53:00 10/03/2013 23:50:00 DIS Outpatient [id number] 08/26/2013 13:50:00 08/30/2013 18:25:00 DIS Inpatient [id number] 08/07/2013 16:23:00 08/07/2013 17:25:00 DIS Outpatient [id number] 07/09/2013 11:49:00 07/09/2013 23:59:59 CLS Outpatient [id number] 06/20/2013 15:23:00 06/20/2013 23:59:59 CLS Outpatient [id number] 02/19/2015 08:52:00 Document Registration [id number] 01/31/2018 13:40:00 01/31/2018 23:59:59 CLS [facility] [id number] 01/10/2018 11:40:00 Document Registration
== END 2018-03-02 11:40 | disposition home or self-care (01) ==
LOC: EDUNIT# 09:28 → ER 09:30
DX: K21.9 Gastro-esophageal reflux disease without esophagitis (principal); F32.9 Major depressive disorder, single episode, unspecified; Z87.59 Personal history of other complications of pregnancy, childbirth and the puerperium; Z87.891 Personal history of nicotine dependence; Z87.19 Personal history of other diseases of the digestive system; Z90.49 Acquired absence of other specified parts of digestive tract; Z82.49 Family history of ischemic heart disease and other diseases of the circulatory system
CPT/HCPCS: 36415; 71045; 80053; 83690; 84484; 85025; 93005; 96360

== ENCOUNTER 2018-12-01 23:59 | Emergency (ER) | payer SELFPAY ==
[~2018-12-01] VITALS: Ht 157.5 cm; Wt 124.7 kg
--- NOTE | 2018-12-02 00:44 | ED Respiratory ---
General Chief Complaint: Cough/Cold/Flu Symptoms Stated Complaint: COUGH,FEVER Nursing Triage Note: Patient advises she has been experiencing a cough, headache and fever for approximately 3-4 days without improvement. Pt. advises temperature was 101.5 at 2100. She states she took tylenol at that time. Temperature is currently 98.1 Source: patient Exam Limitations: no limitations History of Present Illness Date Seen by Provider: Dec 02, 2018 Time Seen by Provider: 00:20 Initial Comments Here with report of 3-4 days of cough, congestion, fever and runny nose with complaint of fullness of the left ear. Did have temperature tonight at home of 101.5. She did take some Tylenol at that time and currently her fevers better. Denies nausea or vomiting. 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 Timing/Duration: getting worse Severity: moderate Prior Episodes/Possible Cause: occasional episodes Associated Symptoms: cough, earache, fever/chills, nasal congestion, nasal drainage; No shortness of breath; sore throat; No wheezing Allergies and Home Medications Allergies Coded Allergies: No Known Drug Allergies (Unverified , 12/02/18) Home Medications Docusate Sodium 100 Mg Capsule, 100 MG PO DAILY Prescribed by: JONATHON POSEY on 02/14/18 1020 Escitalopram Oxalate 20 Mg Tablet, 20 MG PO DAILY, (Reported) Hydrocodone Bit/Acetaminophen 1 Tab Tab, 1 TAB PO Q4H PRN Prescribed by: JONATHON POSEY on 02/14/18 1020 Medroxyprogesterone Acetate 104 Mg/0.65 Ml Syringe, 104 MG SQ Q 3MO, (Reported) Patient Home Medication List Home Medication List Reviewed: Yes Review of Systems Review of Systems Constitutional: see HPI; No chills; fever EENTM: see HPI Respiratory: cough; No short of breath Cardiovascular: no symptoms reported Gastrointestinal: no symptoms reported Genitourinary: no symptoms reported Musculoskeletal: muscle pain; No neck pain Skin: no symptoms reported Past Gxwawck-Zzkqgd-Mapyax Hx Past Med/Social Hx: Reviewed Nursing Past Med/Soc Hx Patient Social History Alcohol Use: Denies Use Number of Drinks Today: DD Alcohol Beverage of Choice: Rum Recreational Drug Use: No Smoking Status: Former Smoker Former Smoker, Quit: Feb 13, 2014 Recent Foreign Travel: No Contact w/Someone Who Travel: No Recent Infectious Disease Expo: No Recent Hopitalizations: No Immunizations Up To Date Tetanus Booster (TDap): Less than 5yrs PED Vaccines UTD: Yes Date of Pneumonia Vaccine: Jan 31, 2011 Date of Influenza Vaccine: Sep 22, 2013 Seasonal Allergies Seasonal Allergies: No Past Medical History Surgeries: Yes Section, Gallbladder Respiratory: No Cardiac: No Neurological: No Reproductive Disorders: No Female Reproductive Disorders: Denies Sexually Transmitted Disease: No HIV/AIDS: No Gastrointestinal: Yes Gastroesophageal Reflux, Gall Bladder Disease Musculoskeletal: No Endocrine: No HEENT: No Loss of Vision: Bilateral Hearing Impairment: Denies Cancer: No Psychosocial: Yes Depression Integumentary: No Blood Disorders: No Adverse Reaction/Blood Tranf: No (N/A) Family Medical History Reviewed Nursing Family Hx Cardiovascular disease 19 FATHER Hypertension 19 FATHER 19 MOTHER Heart Disease, Hypertension Physical Exam Vital Signs - First Documented Capillary Refill : Less Than 3 Seconds Height: 5'2.00" Weight: 275lbs. 0.0oz. 124.528620wn; 51.0 BMI Method:Stated General Appearance: WD/WN, no apparent distress HEENT: PERRL/EOMI, TMs normal, pharyngeal erythema Neck: full range of motion, supple Respiratory: lungs clear, normal breath sounds Cardiovascular: no murmur, tachycardia Gastrointestinal: non tender, soft Extremities: non-tender, normal inspection Neurologic/Psychiatric: alert, oriented x 3 Skin: normal color, warm/dry Progress/Results/Core Measures Suspected Sepsis Recent Fever Within 48 Hours: No Infection Criteria Present: Suspected New Infection New/Unexplained Altered Menta: No Sepsis Screen: No Definite Risk SIRS Temperature:98.1 Pulse: 97 Respiratory Rate: 18 Blood Pressure 156 /112 Mean: 127 Results/Orders Micro Results Microbiology 12/02/18 Influenza Types A,B Antigen (ELIZABETH) - Final, Complete My Orders Orders - LATONIA LOGAN MD Influenza A And B Antigens (12/02/18 00:10) Vital Signs/I&O 12/02/18 12/02/18 00:16 00:16 Temp 98.1 Pulse 97 Resp 18 B/P (MAP) 156/112 (127) Pulse Ox 98 O2 Delivery Room Air Room Air Capillary Refill : Less Than 3 Seconds Blood Pressure Mean: 127 Progress Note : Progress Note Seen and evaluated. Influenza screen ordered. This was negative. Patient's blood pressure was a little high and she was instructed to follow-up with her provider regarding that. She verbalized understanding. Discharged home with return precautions. Patient verbalize understanding instructions and agreement with plan. Departure Impression Primary Impression: Upper respiratory infection Qualified Codes: J06.9 - Acute upper respiratory infection, unspecified Disposition: HOME, SELF-CARE Condition: Improved Departure-Patient Inst. Decision time for Depature: 00:43 Referrals: ANNA MOORE MD (PCP/Family) Primary Care Physician Patient Instructions: Viral Upper Respiratory Infection, Adult (DC) Add. Discharge Instructions: All discharge instructions reviewed with patient and/or family. Voiced understanding. You may take Tylenol/acetaminophen 1000 mg every 8 hours as needed for pain. You may also take ibuprofen 800 mg every 8 hours as needed for pain. Drink plenty of fluids. You need to get some rest. You may use Afrin nasal spray or the generic, 12 hour relief, 2 sprays to each capsule twice daily for 3 days only and then stop. Do not take more than 3 days. Return for worse pain, fever , vomiting, weakness, breathing problems or other concerns as needed. Work/School Note: Work Release Form Date Seen in the Emergency Department: Dec 02, 2018 Return to Work: Dec 05, 2018 Restrictions: No Restrictions LATONIA LOGAN MD Dec 02, 2018 00:44
[2018-12-02 00:51] VITALS: BP 156/112
== END 2018-12-02 01:02 | disposition home or self-care (01) ==
LOC: EDUNIT# 23:59 → ER 12-02
DX: J06.9 Acute upper respiratory infection, unspecified (principal); K21.9 Gastro-esophageal reflux disease without esophagitis; F32.9 Major depressive disorder, single episode, unspecified; Z82.49 Family history of ischemic heart disease and other diseases of the circulatory system; Z79.51 Long term (current) use of inhaled steroids; Z87.891 Personal history of nicotine dependence; Z98.890 Other specified postprocedural states; Z87.19 Personal history of other diseases of the digestive system
CPT/HCPCS: 87804

== ENCOUNTER 2020-08-28 14:45 | Emergency (ER) | payer SELFPAY ==
[~2020-08-28] VITALS: Ht 157.4 cm; Wt 140.0 kg
[2020-08-28 14:51] VITALS: BP 145/95
--- NOTE | 2020-08-28 15:06 | ED Upper Extremity ---
General Chief Complaint: Upper Extremity Stated Complaint: RT SHOULDER PAIN History of Present Illness Date Seen by Provider: Aug 28, 2020 Time Seen by Provider: 15:04 Initial Comments Patient presenting to emergency department for evaluation of right shoulder pain that started 2 days ago after she stood up too quickly and was upset about something and ran into a doorway. She has been taking Tylenol without much relief and she says it hurts to move. She denies any other areas of pain or trauma and she denies any weakness or tingling. She is in no obvious distress with normal vital signs. Allergies and Home Medications Allergies Coded Allergies: No Known Drug Allergies (Unverified , 12/02/18) Home Medications Docusate Sodium 100 Mg Capsule, 100 MG PO DAILY Prescribed by: JONATHON POSEY on 02/14/18 1020 Escitalopram Oxalate 20 Mg Tablet, 20 MG PO DAILY, (Reported) Hydrocodone Bit/Acetaminophen 1 Tab Tab, 1 TAB PO Q4H PRN Prescribed by: JONATHON POSEY on 02/14/18 1020 Medroxyprogesterone Acetate 104 Mg/0.65 Ml Syringe, 104 MG SQ Q 3MO, (Reported) Patient Home Medication List Home Medication List Reviewed: Yes Review of Systems Constitutional: no symptoms reported Respiratory: no symptoms reported Cardiovascular: no symptoms reported Musculoskeletal: joint pain Skin: no symptoms reported Psychiatric/Neurological: No Symptoms Reported All Other Systems Reviewed Negative Unless Noted: Yes Past Ntfpcaa-Jjhvva-Ljheos Hx Patient Social History Alcohol Beverage of Choice: Rum Former Smoker, Quit: Feb 13, 2014 Recent Hopitalizations: No Immunizations Up To Date Tetanus Booster (TDap): Less than 5yrs PED Vaccines UTD: Yes Date of Pneumonia Vaccine: Jan 31, 2011 Date of Influenza Vaccine: Sep 22, 2013 Seasonal Allergies Seasonal Allergies: No Past Medical History Surgeries: Yes Section, Gallbladder Respiratory: No Cardiac: No Neurological: No Reproductive Disorders: No Female Reproductive Disorders: Denies Sexually Transmitted Disease: No HIV/AIDS: No Gastrointestinal: Yes Gastroesophageal Reflux, Gall Bladder Disease Musculoskeletal: No Endocrine: No HEENT: No Loss of Vision: Bilateral Hearing Impairment: Denies Cancer: No Psychosocial: Yes Depression Integumentary: No Blood Disorders: No Adverse Reaction/Blood Tranf: No (N/A) Family Medical History Cardiovascular disease 19 FATHER Hypertension 19 FATHER 19 MOTHER Heart Disease, Hypertension Physical Exam Vital Signs Vital Signs - First Documented 08/28/20 14:51 Temp 36.9 Pulse 107 Resp 18 B/P (MAP) 145/95 (112) Pulse Ox 97 O2 Delivery Room Air Capillary Refill : Height, Weight, BMI Height: 5'2.00" Weight: 275lbs. 0.0oz. 124.052717sg; 51.0 BMI Method:Stated General Appearance: WD/WN, no apparent distress Cardiovascular: regular rate, rhythm Respiratory: no accessory muscle use Gastrointestinal: non tender, soft Shoulder: pain (pain to palpation at the right before meals joint but no obvious deformity and she has pain with range of motion as well and abduction. ) Neurologic/Tendon: normal sensation, normal motor functions, normal tendon functions Neurologic/Psychiatric: alert, oriented x 3 Skin: warm/dry Progress/Results/Core Measures Results/Orders My Orders Orders - MEGGAN DEAL DO Shoulder 3 View Right (08/28/20 14:56) Hydrocodone/Apap 5/325 Tablet (Lortab 5 (08/28/20 15:15) Medications Given in ED Current Medications Medications Dose Ordered Sig/Tiffanie Route Start Time Stop Time Status Last Admin Dose Admin Acetaminophen/ Hydrocodone Bitart 2 tab ONCE ONCE PO 08/28/20 15:15 08/28/20 15:16 DC 08/28/20 15:07 2 TAB Vital Signs/I&O 08/28/20 14:51 Temp 36.9 Pulse 107 Resp 18 B/P (MAP) 145/95 (112) Pulse Ox 97 O2 Delivery Room Air Progress Progress Note : Progress Note Patient's with pain after he before meals joint and likely sustained a sprain is my initial suspicion but will go ahead and check an x-ray treat her pain and reassess. Departure Impression Primary Impression: Sprain of right acromioclavicular joint, initial encounter Disposition: 01 HOME, SELF-CARE Condition: Stable Departure-Patient Inst. Referrals: MATTY CRAWFORD APRN (PCP/Family) Primary Care Physician Patient Instructions: Shoulder Sprain (DC) Add. Discharge Instructions: Tylenol for pain, morphine for breakthrough pain, PCP f/u Sling Rest Ice Compression Elevation All discharge instructions reviewed with patient and/or family. Voiced understanding. Scripts Morphine Sulfate (Morphine Sulfate IR Tablet) 15 Mg Tablet 15 MG PO TID PRN for PAIN-SEVERE (8-10) for 7 Days, #6 TAB Prov: MEGGAN DEAL DO 08/28/20 MEGGAN DEAL DO Aug 28, 2020 15:06
[2020-08-28] MEDS ORDERED: HYDROcodone/APAP 5 MG/325 MG (LORTAB) TAB PO ONE (15:15)
--- NOTE | 2020-08-28 15:31 | Diagnostic Imaging Report ---
EXAM: Right shoulder radiograph. EXAM DATE: 08/28/2020. COMPARISON: None. HISTORY: Injury to the right shoulder with pain. TECHNIQUE: 3 views of the right shoulder. FINDINGS: No acute fracture, dislocation, or destructive osseous process. The humeral head is located within the glenohumeral joint. The acromioclavicular joint is intact. Soft tissues are normal. The visualized lungs are unremarkable. IMPRESSION: No acute osseous abnormality or dislocation of the right shoulder. Dictated by: Dictated on workstation # [id number]
[2020-08-28] MEDS ORDERED: MORP15TA PO (15:36)
[2020-08-28] MEDS ORDERED: Seroquel (15:52)
[2020-08-28] MEDS ORDERED: Propranolol (15:52)
== END 2020-08-28 15:40 | disposition home or self-care (01) ==
LOC: EDUNIT# 14:45 → ER FS 14:47
DX: S43.51XA Sprain of right acromioclavicular joint, initial encounter (principal); F32.9 Major depressive disorder, single episode, unspecified; Z82.49 Family history of ischemic heart disease and other diseases of the circulatory system; Z87.891 Personal history of nicotine dependence; W22.8XXA Striking against or struck by other objects, initial encounter
CPT/HCPCS: 73030; 99283; A4565

== ENCOUNTER 2022-12-15 17:04 | Emergency (ER) | payer SELFPAY ==
[~2022-12-15] VITALS: Ht 157 cm; Wt 133.8 kg
[~2022-12-15 17:04] MED LIST changes: +CYCL10TA25 PO; -CYCL10TA9 PO; +MORP15TA PO; +Propranolol; -SULF1TAB35 PO; +SULF1TAB38 PO; +Seroquel
--- NOTE | 2022-12-15 17:31 | Diagnostic Imaging Report ---
INDICATION: Post fall 2 days ago with injury to right hand. Increasing pain and swelling and bruising. TECHNIQUE: Three views of the right hand. CORRELATION STUDY: None FINDINGS: There is normal alignment and appearance of the osseous structures of the hand. The joint spaces are maintained. There is no acute fracture. Prominent soft tissue swelling along the ulnar aspect of the hand extending into the 5th digit. IMPRESSION: 1. Negative for acute bony abnormality of the hand. Dictated by: Dictated on workstation # [id number]
[2022-12-15] MEDS ORDERED: ACHD5005 PO (17:53)
--- NOTE | 2022-12-15 17:54 | ED Upper Extremity ---
General Chief Complaint: Upper Extremity Stated Complaint: RT HAND INJ | FALL AT HOME Nursing Triage Note: PT AMBULATORY TO ER. PT REPORTS FALLING 2 DAYS AGO, INJURED R HAND, WAS SEEN AT CLINIC, NO XRAYS WERE PERFORMED, PT C/O INCREASE IN PAIN/SWELLING/BRUISING TO R 5TH FINGER EXTENDING UP INTO HAND. HAS BEEN TAKING TYLENOL AND IBUPROFEN WITHOUT RELIEF. Source: patient Exam Limitations: no limitations (DELFINO LEHMAN APRN) History of Present Illness Date Seen by Provider: Dec 15, 2022 Time Seen by Provider: 17:15 Initial Comments Patient is a 27-year-old female who presents to the emergency department for evaluation of right hand pain and bruising. Patient states she fell down her stairs 2 days ago. She was seen at a walk-in clinic but x-rays were unable to be performed as their equipment was down. She has been taking Tylenol ibuprofen without relief. She states the swelling and bruising has significantly worsened in her right fifth digit. She was given an aluminum finger splint to wear by the clinic. Patient denies any other pain or injury. (DELFINO LEHMAN APRN) Allergies and Home Medications Allergies Coded Allergies: ketorolac (Verified Allergy, Unknown, 12/15/22) Patient Home Medication List Home Medication List Reviewed: Yes (DELFINO LEHMAN APRN) Escitalopram Oxalate (Lexapro) 20 Mg Tablet, 20 MG PO DAILY, (Reported) Entered as Reported by: INGA NIELSON on 02/13/18 1354 Hydrocodone Bit/Acetaminophen (HYDROcodone/APAP 5 MG/325 MG TAB) 1 Tab Tab, 1 TAB PO Q6H PRN for PAIN-MODERATE (5-7) Prescribed by: Delfino Lehman on 12/15/22 1754 Medroxyprogesterone Acetate (Depo-Subq Provera 104) 104 Mg/0.65 Ml Syringe, 104 MG SQ Q 3MO, (Reported) Entered as Reported by: INGA NIELSON on 02/13/18 1354 Morphine Sulfate (Morphine Sulfate IR Tablet) 15 Mg Tablet, 15 MG PO TID PRN for PAIN-SEVERE (8-10) Prescribed by: MEGGAN DEAL on 08/28/20 1536 [Propranolol] , (Reported) Entered as Reported by: AJ ZARCO on 08/28/20 155 [Seroquel] , (Reported) Entered as Reported by: AJ ZARCO on 08/28/20 1620 Review of Systems Constitutional: no symptoms reported EENTM: no symptoms reported Respiratory: no symptoms reported Cardiovascular: no symptoms reported Gastrointestinal: no symptoms reported Genitourinary: no symptoms reported Musculoskeletal: see HPI Skin: see HPI Psychiatric/Neurological: No Symptoms Reported (DELFINO LEHMAN APRN) Past Jgplqco-Qrhmsg-Lhsnmo Hx Patient Social History Use of E-Cig and/or Vaping dev: Yes Substance use?: No Alcohol Use?: No Pt feels they are or have been: No (DELFINO LEHMAN APRN) Immunizations Up To Date Tetanus Booster (TDap): Less than 5yrs PED Vaccines UTD: Yes First/Initial COVID19 Vaccinat: DENIES (DELFINO LEHMAN APRN) Seasonal Allergies Seasonal Allergies: No (DELFINO LEHMAN APRN) Past Medical History Surgeries: Yes Section, Gallbladder Respiratory: No Cardiac: No Neurological: No Last Menstrual Period: Dec 08, 2022 Reproductive Disorders: No Female Reproductive Disorders: Denies Sexually Transmitted Disease: No HIV/AIDS: No Genitourinary: No Gastrointestinal: Yes Gastroesophageal Reflux, Gall Bladder Disease Musculoskeletal: No Endocrine: No HEENT: No Loss of Vision: Bilateral Hearing Impairment: Denies Cancer: No Psychosocial: Yes Depression Integumentary: No Blood Disorders: No Adverse Reaction/Blood Tranf: No (N/A) (DELFINO LEHMAN APRN) Family Medical History Cardiovascular disease 19 FATHER Hypertension 19 FATHER 19 MOTHER Heart Disease, Hypertension (DELFINO LEHMAN APRN) Physical Exam Vital Signs Vital Signs - First Documented 12/15/22 17:10 Temp 36.8 Pulse 113 Resp 18 B/P (MAP) 165/112 (129) Pulse Ox 97 O2 Delivery Room Air (LINDSAY MOREL MD) Vital Signs Capillary Refill : (DELFINO LEHMAN APRN) Height, Weight, BMI Height: 5'2.00" Weight: 275lbs. 0.0oz. 124.419967da; 54.00 BMI Method:Stated General Appearance: WD/WN, no apparent distress HEENT: PERRL/EOMI, normal ENT inspection, TMs normal, pharynx normal Neck: non-tender, full range of motion, supple, normal inspection Respiratory: chest non-tender, lungs clear, normal breath sounds, no respiratory distress, no accessory muscle use Hand: Right, ecchymosis, limited ROM, soft tissue tenderness Neurologic/Psychiatric: no motor/sensory deficits, alert, normal mood/affect, oriented x 3 Skin: normal color, warm/dry Lymphatic: no adenopathy (DELFINO LEHMAN APRN) Progress/Results/Core Measures Results/Orders Blood Pressure Mean: 129 Progress Progress Note : Progress Note Patient is nontoxic and well-hydrated on exam. She does have significant ecchymosis and swelling to the right fifth digit and right hypothenar eminence. She is able to slightly move the right fifth digit but this is limited secondary to pain. She does have intact sensation in the distal portion of the right fifth digit. Flexor and extensor tendon function appears intact. X-rays of the right hand were obtained. No osseous abnormality noted on my wet read of the hand x-ray. Formal radiology report agrees that there are no osseous abnormalities noted. Mention is made of the soft tissue swelling. Patient will be discharged home with a short course of narcotic analgesia to help with the worst of the acute pain. I discussed supportive care including icing, elevating, and early mobilization of the area to help with the swelling. Follow-up with PCP as needed. Return precautions for urgent symptomology discussed. Patient verbalized un derstanding. (DELFINO LEHMAN APRN) Departure Impression Primary Impression: Finger sprain Qualified Codes: S63.616A - Unspecified sprain of right little finger, i nitial encounter Additional Impression: Hand contusion Qualified Codes: S60.221A - Contusion of right hand, initial encounter Disposition: 01 HOME, SELF-CARE Condition: Stable Departure-Patient Inst. Decision time for Depature: 17:50 (DELFINO LEHMAN APRN) Referrals: NO,LOCAL PHYSICIAN (PCP/Family) Primary Care Physician Patient Instructions: Finger Sprain ED, Minor Contusion ED Scripts Hydrocodone Bit/Acetaminophen (HYDROcodone/APAP 5 MG/325 MG TAB) 1 Tab Tab 1 TAB PO Q6H PRN for PAIN-MODERATE (5-7) for 3 Days, #12 TAB 0 Refills Prov: DELFINO LEHMAN APRN 12/15/22 ATTENDING PHYSICIAN NOTE: I was physically present as attending physician in the emergency department during the care of this patient, but I was not directly involved in the decision making or delivery of care for this patient. (LINDSAY MOREL MD) DELFINO LEHMAN APRN Dec 15, 2022 17:54 LINDSAY MOREL MD Dec 16, 2022 06:19
[2022-12-15 17:57] VITALS: BP 149/85
== END 2022-12-15 17:58 | disposition home or self-care (01) ==
LOC: EDUNIT# 17:04 → ER 17:07
DX: S63.616A Unspecified sprain of right little finger, initial encounter (principal); F17.290 Nicotine dependence, other tobacco product, uncomplicated; Z88.6 Allergy status to analgesic agent; Z28.310 Unvaccinated for COVID-19; W10.9XXA Fall (on) (from) unspecified stairs and steps, initial encounter; Y92.009 Unspecified place in unspecified non-institutional (private) residence as the place of occurrence of the external cause
CPT/HCPCS: 73130

== ENCOUNTER 2022-12-19 19:44 | Emergency (ER) | payer SELFPAY ==
[~2022-12-19] VITALS: Ht 157.5 cm; Wt 131.5 kg
[2022-12-19] MEDS ORDERED: ACETAMINOPHEN 500 MG TAB (TYLENOL) PO STA (19:51)
--- NOTE | 2022-12-19 19:59 | ED General ---
General Chief Complaint: Psych/Social Disorder Stated Complaint: CHEST PAIN, RINGING IN EARS Source of Information: Patient Exam Limitations: No Limitations History of Present Illness Date Seen by Provider: Dec 19, 2022 Time Seen by Provider: 19:44 Initial Comments 27-year-old female presents via EMS with reports of shortness of breath starting around 5:30 or 6 this evening. She also reports headache, chest pain and lightheadedness. She thought she was having a panic attack, so she took her propranolol and Xanax but did not have any relief. She denies any trigger for this panic attack, states she was resting at home and her was at work. She also reports some nausea, began to dry heave during assessment. States her only past medical history is mental health problems. She currently takes propranolol, Xanax, Seroquel, Lamictal. She is also supposed to take Strattera but states she cannot afford it. Allergies and Home Medications Allergies Coded Allergies: ketorolac (Verified Allergy, Unknown, 12/15/22) Patient Home Medication List Home Medication List Reviewed: Yes Escitalopram Oxalate (Lexapro) 20 Mg Tablet, 20 MG PO DAILY, (Reported) Entered as Reported by: INGA NIELSON on 02/13/18 1354 Hydrocodone Bit/Acetaminophen (HYDROcodone/APAP 5 MG/325 MG TAB) 1 Tab Tab, 1 TAB PO Q6H PRN for PAIN-MODERATE (5-7) Prescribed by: Delfino Lehman on 12/15/22 1754 Medroxyprogesterone Acetate (Depo-Subq Provera 104) 104 Mg/0.65 Ml Syringe, 104 MG SQ Q 3MO, (Reported) Entered as Reported by: INGA NIELSON on 02/13/18 1354 Morphine Sulfate (Morphine Sulfate IR Tablet) 15 Mg Tablet, 15 MG PO TID PRN for PAIN-SEVERE (8-10) Prescribed by: MEGGAN DEAL on 08/28/201535 [Propranolol] , (Reported) Entered as Reported by: AJ ZARCO on 08/28/201551 [Seroquel] , (Reported) Entered as Reported by: AJ ZARCO on 08/28/201551 Review of Systems Review of Systems Constitutional: see HPI Past Prtoxed-Xxzajg-Qqicdb Hx Immunizations Up To Date Tetanus Booster (TDap): Less than 5yrs PED Vaccines UTD: Yes First/Initial COVID19 Vaccinat: DENIES Seasonal Allergies Seasonal Allergies: No Past Medical History Surgeries: Yes Section, Gallbladder Respiratory: No Cardiac: No Neurological: No Reproductive Disorders: No Female Reproductive Disorders: Denies Sexually Transmitted Disease: No HIV/AIDS: No Genitourinary: No Gastrointestinal: Yes Gastroesophageal Reflux, Gall Bladder Disease Musculoskeletal: No Endocrine: No HEENT: No Loss of Vision: Bilateral Hearing Impairment: Denies Cancer: No Psychosocial: Yes Depression Integumentary: No Blood Disorders: No Adverse Reaction/Blood Tranf: No (N/A) Family Medical History Cardiovascular disease 19 FATHER Hypertension 19 FATHER 19 MOTHER Heart Disease, Hypertension Physical Exam Vital Signs Vital Signs - First Documented 12/19/22 19:44 Temp 37.0 Pulse 97 Resp 26 B/P (MAP) 143/104 (117) Pulse Ox 98 O2 Delivery Room Air Capillary Refill : Height, Weight, BMI Height: 5'2.00" Weight: 275lbs. 0.0oz. 124.612929it; 54.00 BMI Method:Stated General Appearance: Anxious, Moderate Distress Neck: Normal Inspection, Supple Respiratory: Lungs Clear, Normal Breath Sounds, Other (Tachypneic) Cardiovascular: No Edema, No Gallop, No JVD, No Murmur, Tachycardia Gastrointestinal: Normal Bowel Sounds Extremity: Normal Inspection, Normal Range of Motion Neurologic/Psychiatric: Alert, Oriented x3 Skin: Normal Color, Warm/Dry Progress/Results/Core Measures Suspected Sepsis SIRS Temperature: Pulse: Respiratory Rate: Laboratory Tests 12/19/22 20:10: White Blood Count 10.4 Blood Pressure / Mean: Laboratory Tests 12/19/22 20:10: Creatinine 1.00, INR Comment 0.9, Platelet Count 501H, Total Bilirubin 0.3 Results/Orders Lab Results Laboratory Tests Test 12/19/22 20:10 Range/Units White Blood Count 10.4 4.3-11.0 10^3/uL Red Blood Count 4.45 3.80-5.11 10^6/uL Hemoglobin 12.5 11.5-16.0 g/dL Hematocrit 37 35-52 % Mean Corpuscular Volume 84 80-99 fL Mean Corpuscular Hemoglobin 28 25-34 pg Mean Corpuscular Hemoglobin Concent 33 32-36 g/dL Red Cell Distribution Width 12.6 10.0-14.5 % Platelet Count 501 H 130-400 10^3/uL Mean Platelet Volume 9.9 9.0-12.2 fL Immature Granulocyte % (Auto) 0 % Neutrophils (%) (Auto) 56 42-75 % Lymphocytes (%) (Auto) 33 12-44 % Monocytes (%) (Auto) 7 0-12 % Eosinophils (%) (Auto) 3 0-10 % Basophils (%) (Auto) 1 0-10 % Neutrophils # (Auto) 5.8 1.8-7.8 10^3/uL Lymphocytes # (Auto) 3.5 1.0-4.0 10^3/uL Monocytes # (Auto) 0.8 0.0-1.0 10^3/uL Eosinophils # (Auto) 0.3 0.0-0.3 10^3/uL Basophils # (Auto) 0.1 0.0-0.1 10^3/uL Immature Granulocyte # (Auto) 0.0 0.0-0.1 10^3/uL Prothrombin Time 13.0 12.2-14.7 SEC INR Comment 0.9 0.8-1.4 Activated Partial Thromboplast Time 35 24-35 SEC D-Dimer < 0.27 0.00-0.49 UG/ML Sodium Level 139 135-145 MMOL/L Potassium Level 3.7 3.6-5.0 MMOL/L Chloride Level 108 H 98-107 MMOL/L Carbon Dioxide Level 19 L 21-32 MMOL/L Anion Gap 12 5-14 MMOL/L Blood Urea Nitrogen 11 7-18 MG/DL Creatinine 1.00 0.60-1.30 MG/DL Estimat Glomerular Filtration Rate 78 BUN/Creatinine Ratio 11 Glucose Level 93 70-105 MG/DL Calcium Level 9.4 8.5-10.1 MG/DL Corrected Calcium 9.5 8.5-10.1 MG/DL Magnesium Level 2.2 1.6-2.4 MG/DL Total Bilirubin 0.3 0.1-1.0 MG/DL Aspartate Amino Transf (AST/SGOT) 11 5-34 U/L Alanine Aminotransferase (ALT/SGPT) 10 0-55 U/L Alkaline Phosphatase 70 40-136 U/L Troponin I < 0.028 <0.028 NG/ML Total Protein 7.4 6.4-8.2 GM/DL Albumin 3.9 3.2-4.5 GM/DL My Orders Orders - CHRISTINA FELDMAN [employer] Cbc With Automated Diff (12/19/22 19:51) Magnesium (12/19/22 19:51) Chest 1 View, Ap/Pa Only (12/19/22 19:51) Ekg Tracing (12/19/22 19:51) Comprehensive Metabolic Panel (12/19/22 19:51) Protime With Inr (12/19/22 19:51) Partial Thromboplastin Time (12/19/22 19:51) Monitor-Rhythm Ecg Trace Only (12/19/22 19:51) Ed Iv/Invasive Line Start (12/19/22 19:51) Troponin I Alisha (12/19/22 19:51) Acetaminophen Tablet (Tylenol Tablet) (12/19/22 19:51) Ondansetron Injection (Zofran Injectio (12/19/22 20:00) Ns Iv 1000 Ml (Sodium Chloride 0.9%) (12/19/22 20:00) Lorazepam Injection (Ativan Injection) (12/19/22 20:00) Fibrin Degradation Products (12/19/22 20:46) Diphenhydramine Injection (Benadryl Inje (12/19/22 22:00) Prochlorperazine Injection (Compazine In (12/19/22 22:00) Lorazepam Injection (Ativan Injection) (12/19/22 22:00) Medications Given in ED Vital Signs/I&O 12/19/22 12/19/22 12/19/22 19:44 20:19 22:50 Temp 37.0 37.0 Pulse 97 89 Resp 26 18 B/P (MAP) 143/104 (117) 139/85 Pulse Ox 98 99 O2 Delivery Room Air Room Air Capillary Refill : Progress Note #1: Time: 19:58 Progress Note Patient seen and evaluated, resting on bed, hyperventilating. Based on exam and symptoms, differential diagnosis includes but is not limited to, panic attack, VA, PE, pneumonia. Progress Note #2: Time: 20:32 Progress Note Chest x-ray reviewed, no acute cardiopulmonary processes. Progress Note #3: Time: 21:54 Progress Note Labs reviewed. Discussed results with patient. She states she is feeling better, but still anxious and has a headache. Will order medications for anxiety and headache prior to discharge. Discussed discharge instructions and return precautions with patient at this time. ECG Initial ECG Impression Date: Dec 19, 2022 Initial ECG Impression Time: 20:02 Initial ECG Rate: 83 Initial ECG Rhythm: Normal Sinus Initial ECG Intervals: Normal Initial ECG Impression: Nonspecific Changes Diagnostic Imaging Diagonstic Imaging: Xray Plain Films/CT/US/NM/MRI: chest Comments [facility], [place] NAME: EMILIE GREY [facility] REC#: [id number] PT STATUS: REG ER : 1995 PHYSICIAN: CHRISTINA FELDMAN APRN ADMIT DATE: 12/19/22/ER Signed Date of Exam:12/19/22 CHEST 1 VIEW, AP/PA ONLY INDICATION: Chest pain. Comparison is made with prior examination of 03/02/2018. FINDINGS: The heart size, mediastinal configuration, and pulmonary vascularity are within normal limits. There is no pleural effusion, pneumothorax, or pneumonia. The osseous structures are unremarkable. IMPRESSION: No acute cardiopulmonary abnormality. Dictated by: Dictated on workstation # [id number] Dict: 12/19/222011 Trans: 12/19/222023 [facility] [id number] Interpreted by: FRANCHESKA MATHUR MD Electronically signed by: FRANCHESKA MATHUR MD 12/19/222023 Departure Impression Primary Impression: Anxiety Disposition: HOME, SELF-CARE Condition: Stable Departure-Patient Inst. Decision time for Depature: 22:42 Referrals: NO,LOCAL PHYSICIAN (PCP/Family) Primary Care Physician Patient Instructions: Panic Disorder (DC) Add. Discharge Instructions: Follow-up with Dr. Chang. Discussed with her medication options. Continue taking your home medications as prescribed. You may take Tylenol or ibuprofen as needed for pain. Return for any new, concerning, or worsening symptoms. All discharge instructions reviewed with patient and/or family. Voiced understanding. CHRISTINA FELDMAN APRN Dec 19, 2022 19:59
[2022-12-19] MEDS ORDERED: ONDANSETRON 4 MG/2 ML (SDV) Z0FRAN IVP ONE (20:00)
[2022-12-19] MEDS ORDERED: NS IV 1000 ML 1,000 ML IV SCH (20:00)
[2022-12-19] MEDS ORDERED: LORazepam INJ 2 MG/ML (ATIVAN) VIAL IVP ONE ×2 (20:00→22:00)
--- NOTE | 2022-12-19 20:18 | Diagnostic Imaging Report ---
INDICATION: Chest pain. Comparison is made with prior examination of 03/02/2018. FINDINGS: The heart size, mediastinal configuration, and pulmonary vascularity are within normal limits. There is no pleural effusion, pneumothorax, or pneumonia. The osseous structures are unremarkable. IMPRESSION: No acute cardiopulmonary abnormality. Dictated by: Dictated on workstation # [id number]
[2022-12-19 20:19] LABS: BASOPHILS # (AUTO) 0.1 10^3/uL (0.0-0.1); BASOPHILS % (AUTO) 1 % (0-10); EOSINOPHILS # (AUTO) 0.3 10^3/uL (0.0-0.3); EOSINOPHILS % (AUTO) 3 % (0-10); HEMATOCRIT 37 % (35-52); HEMOGLOBIN 12.5 g/dL (11.5-16.0); LYMPHOCYTES # (AUTO) 3.5 10^3/uL (1.0-4.0); LYMPHOCYTES % (AUTO) 33 % (12-44); MEAN CORPUSCULAR HEMOGLOBIN 28 pg (25-34); MEAN CORPUSCULAR HGB CONC 33 g/dL (32-36); MEAN CORPUSCULAR VOLUME 84 fL (80-99); MEAN PLATELET VOLUME 9.9 fL (9.0-12.2); MONOCYTES # (AUTO) 0.8 10^3/uL (0.0-1.0); MONOCYTES % (AUTO) 7 % (0-12); NEUTROPHILS # (AUTO) 5.8 10^3/uL (1.8-7.8); NEUTROPHILS % (AUTO) 56 % (42-75); PLATELET COUNT 501 10^3/uL (130-400); WHITE BLOOD COUNT 10.4 10^3/uL (4.3-11.0)
[2022-12-19 20:32] LABS: INR 0.9 (0.8-1.4)
[2022-12-19 20:53] LABS: ALBUMIN 3.9 GM/DL (3.2-4.5); BILIRUBIN,TOTAL 0.3 MG/DL (0.1-1.0); CALCIUM 9.4 MG/DL (8.5-10.1); MAGNESIUM 2.2 MG/DL (1.6-2.4); POTASSIUM 3.7 MMOL/L (3.6-5.0); TOTAL PROTEIN 7.4 GM/DL (6.4-8.2)
[2022-12-19] MEDS ORDERED: diphenhydrAMINE 50 MG/ML INJ (BENADRYL) IVP ONE (22:00)
[2022-12-19] MEDS ORDERED: PROCHLORPERAZINE 10 MG/2ML INJ (COMPAZINE) IV ONE (22:00)
[2022-12-19 22:50] VITALS: BP 139/85
== END 2022-12-19 22:50 | disposition home or self-care (01) ==
LOC: EDUNIT# 19:44 → ER 19:45
DX: F41.9 Anxiety disorder, unspecified (principal); Z88.6 Allergy status to analgesic agent; Z86.59 Personal history of other mental and behavioral disorders; Z79.899 Other long term (current) drug therapy; Z28.310 Unvaccinated for COVID-19
CPT/HCPCS: 36415; 71045; 80053; 83735; 84484; 85025; 85379; 85610; 85730; 93005; 93041

== ENCOUNTER 2023-01-09 18:17 | Emergency (ER) | payer SELFPAY ==
[~2023-01-09] VITALS: Ht 157 cm; Wt 133.0 kg
[2023-01-09] MEDS ORDERED: fentaNYL INJ 100 MCG/2 ML AMP IVP STA (18:55)
[2023-01-09] MEDS ORDERED: LACTATED RINGERS 1,000 ML IV ONE (19:00)
--- NOTE | 2023-01-09 19:02 | ED Abdominal Pain ---
General Chief Complaint: Abdominal/GI Problems Stated Complaint: OVARY PAIN Nursing Triage Note: RIGHT LOWER ABD PAIN THAT RADIATES INTO HER BACK STARTING YESTERDAY. THINKS IT IS OVERY RELATED. TOOK A MUSCLE RELAXER AT 1300. Source of Information: Patient History of Present Illness Date Seen by Provider: Jan 09, 2023 Time Seen by Provider: 18:50 Initial Comments PT ARRIVES VIA POV FROM HOME PT STATES "MY RIGHT OVARY HURTS" STATES SHE HAS BEEN HAVING RLQ PAIN RADIATING TO RIGHT FLANK SINCE YESTERDAY PAIN IS CONSTANT, BUT HAS SHARP PAINS OFF AND ON NOTHING WORSENS OR IMPROVES PAIN TOOK AN UNKNOWN MUSCLE RELAXANT AROUND 1300 TODAY, NO RELIEF. HAS NOT TAKEN ANYTHING ELSE FOR PAIN AT ANY TIME + NAUSEA, NO VOMITING HAD NORMAL BM TODAY NO URINARY SYMPTOMS HAS HAD SUBJECTIVE FEVER AND CHILLS TODAY--STATES HER NORMAL TEMP IS 96. STATES SHE HAS HAD THIS SAME TYPE PAIN IN THE PAST, AND WAS GIVEN A MUSCLE RELAXANT FOR IT LMP 01/03/23, NORMAL. NO CONTROL PT IS AB 1 SHE HAS HAD PRIOR AND CHOLECYSTECTOMY PCP: NONE--STATES SHE "JUST MOVED BACK HERE" BUT WENT TO [facility] PSYCH:-[facility] Allergies and Home Medications Allergies Coded Allergies: ketorolac (Verified Allergy, Unknown, 12/15/22) Patient Home Medication List Cyclobenzaprine HCl (Cyclobenzaprine HCl) 10 Mg Tablet, 10 MG PO Q8H PRN for SPASMS Prescribed by: HALIMA RODRIGUEZ on 01/09/232208 Escitalopram Oxalate (Lexapro) 20 Mg Tablet, 20 MG PO DAILY, (Reported) Entered as Reported by: INGA NIELSON on 02/13/18 1354 Hydrocodone Bit/Acetaminophen (HYDROcodone/APAP 5 MG/325 MG TAB) 1 Tab Tab, 1 TAB PO Q6H PRN for PAIN-MODERATE (5-7) Prescribed by: Delfino Lehman on 12/15/22 1754 Medroxyprogesterone Acetate (Depo-Subq Provera 104) 104 Mg/0.65 Ml Syringe, 104 MG SQ Q 3MO, (Reported) Entered as Reported by: INGA NIELSON on 02/13/18 1354 Morphine Sulfate (Morphine Sulfate IR Tablet) 15 Mg Tablet, 15 MG PO TID PRN for PAIN-SEVERE (8-10) Prescribed by: MEGGAN DEAL on 08/28/20 1536 Naproxen (Naproxen) 500 Mg Tablet.dr, 500 MG PO BID Prescribed by: HALIMA RODRIGUEZ on 01/09/232208 [Propranolol] , (Reported) Entered as Reported by: AJ ZARCO on 08/28/20 155 [Seroquel] , (Reported) Entered as Reported by: AJ ZARCO on 08/28/201551 Review of Systems Review of Systems Constitutional: see HPI Respiratory: No Symptoms Reported Cardiovascular: No Symptoms Reported Gastrointestinal: See HPI, Abdominal Pain; Denies Constipated, Denies Diarrhea; Nausea; Denies Vomiting Genitourinary: No Symptoms Reported Musculoskeletal: see HPI, back pain Skin: no symptoms reported Psychiatric/Neurological: No Symptoms Reported Endocrine: No Symptoms Reported Hematologic/Lymphatic: No Symptoms Reported Past Mrnrqdk-Enpnuc-Trauit Hx Patient Social History Use of E-Cig and/or Vaping dev: Yes E-Cig or Vaping type used: Nicotine Use of E-Cig and/or Vaping Ricardo: Current Everyday User Substance use?: No Alcohol Use?: Yes Alcohol Frequency: Once in a while Immunizations Up To Date Tetanus Booster (TDap): Less than 5yrs PED Vaccines UTD: Yes First/Initial COVID19 Vaccinat: DENIES Second COVID19 Vaccination [place]: DENIES Third COVID19 Vaccination Date: DENIES Seasonal Allergies Seasonal Allergies: No Past Medical History Surgery/Hospitalization HX: ANXIETY C SECT, JACOB Surgeries: Yes ( X 1; CHOLECYSTECTOMY) Section, Gallbladder Respiratory: No Cardiac: No Neurological: No : No Last Menstrual Period: Jan 03, 2023 Hx : 2 Hx Para: 1 Hx Total # of Abortions (Sp): 1 Reproductive Disorders: No Female Reproductive Disorders: Denies Sexually Transmitted Disease: No HIV/AIDS: No Genitourinary: No Gastrointestinal: Yes (S/P JACOB) Gastroesophageal Reflux, Gall Bladder Disease Musculoskeletal: No Endocrine: No HEENT: No Loss of Vision: Bilateral Hearing Impairment: Denies Cancer: No Psychosocial: Yes Anxiety, Depression Integumentary: No Blood Disorders: No Adverse Reaction/Blood Tranf: No (N/A) Family Medical History Cardiovascular disease 19 FATHER Hypertension 19 FATHER 19 MOTHER Heart Disease, Hypertension Physical Exam Vital Signs Vital Signs - First Documented 01/09/23 18:22 Temp 36.8 Pulse 108 Resp 16 B/P (MAP) 137/88 (104) Pulse Ox 97 O2 Delivery Room Air Capillary Refill : Less Than 3 Seconds Height/Weight/BMI Height: 5'2.00" Weight: 275lbs. 0.0oz. 124.287604uh; 53.00 BMI Method:Stated General Appearance: WD/WN, no apparent distress, obese Respiratory: normal breath sounds, no respiratory distress, no accessory muscle use Cardiovascular: regular rate, rhythm, no murmur Neurologic/Psychiatric: die mounter II-XII nml as tested, no motor/sensory deficits, alert, oriented x 3 Skin: normal color, warm/dry, tattoos/piercings (TATTOOS) Progress/Results/Core Measures Results/Orders Lab Results Laboratory Tests Test 01/09/23 19:06 01/09/23 19:09 Range/Units White Blood Count 10.6 4.3-11.0 10^3/uL Red Blood Count 4.49 3.80-5.11 10^6/uL Hemoglobin 12.5 11.5-16.0 g/dL Hematocrit 39 35-52 % Mean Corpuscular Volume 86 80-99 fL Mean Corpuscular Hemoglobin 28 25-34 pg Mean Corpuscular Hemoglobin Concent 33 32-36 g/dL Red Cell Distribution Width 12.7 10.0-14.5 % Platelet Count 435 H 130-400 10^3/uL Mean Platelet Volume 9.8 9.0-12.2 fL Immature Granulocyte % (Auto) 0 % Neutrophils (%) (Auto) 61 42-75 % Lymphocytes (%) (Auto) 29 12-44 % Monocytes (%) (Auto) 6 0-12 % Eosinophils (%) (Auto) 4 0-10 % Basophils (%) (Auto) 1 0-10 % Neutrophils # (Auto) 6.4 1.8-7.8 10^3/uL Lymphocytes # (Auto) 3.0 1.0-4.0 10^3/uL Monocytes # (Auto) 0.6 0.0-1.0 10^3/uL Eosinophils # (Auto) 0.4 H 0.0-0.3 10^3/uL Basophils # (Auto) 0.1 0.0-0.1 10^3/uL Immature Granulocyte # (Auto) 0.0 0.0-0.1 10^3/uL Sodium Level 140 135-145 MMOL/L Potassium Level 4.0 3.6-5.0 MMOL/L Chloride Level 106 98-107 MMOL/L Carbon Dioxide Level 24 21-32 MMOL/L Anion Gap 10 5-14 MMOL/L Blood Urea Nitrogen 11 7-18 MG/DL Creatinine 0.94 0.60-1.30 MG/DL Estimat Glomerular Filtration Rate 84 BUN/Creatinine Ratio 12 Glucose Level 89 70-105 MG/DL Calcium Level 9.2 8.5-10.1 MG/DL Corrected Calcium 9.2 8.5-10.1 MG/DL Total Bilirubin 0.2 0.1-1.0 MG/DL Aspartate Amino Transf (AST/SGOT) 10 5-34 U/L Alanine Aminotransferase (ALT/SGPT) 9 0-55 U/L Alkaline Phosphatase 70 40-136 U/L Total Protein 7.5 6.4-8.2 GM/DL Albumin 4.0 3.2-4.5 GM/DL Amylase Level 57 25-125 U/L Lipase 32 8-78 U/L Urine Color YELLOW Urine Clarity CLEAR Urine pH 6.0 5-9 Urine Specific [place] 1.025 H 1.016-1.022 Urine Protein NEGATIVE NEGATIVE Urine Glucose (UA) NEGATIVE NEGATIVE Urine Ketones NEGATIVE NEGATIVE Urine Nitrite NEGATIVE NEGATIVE Urine Bilirubin NEGATIVE NEGATIVE Urine Urobilinogen 0.2 < = 1.0 MG/DL Urine Leukocyte Esterase NEGATIVE NEGATIVE Urine RBC (Auto) NEGATIVE NEGATIVE Urine RBC NONE /HPF Urine WBC RARE /HPF Urine Squamous Epithelial Cells 25-50 H /HPF Urine Crystals PRESENT H /LPF Urine Amorphous Sediment FEW JAIME URATES H /LPF Urine Bacteria FEW H /HPF Urine Casts NONE /LPF Urine Mucus SMALL H /LPF Urine Culture Indicated NO Urine Opiates Screen NEGATIVE NEGATIVE Urine Oxycodone Screen NEGATIVE NEGATIVE Urine Methadone Screen NEGATIVE NEGATIVE Urine Propoxyphene Screen NEGATIVE NEGATIVE Urine Barbiturates Screen NEGATIVE NEGATIVE Ur Tricyclic Antidepressants Screen POSITIVE H NEGATIVE Urine Phencyclidine Screen NEGATIVE NEGATIVE Urine Amphetamines Screen NEGATIVE NEGATIVE Urine Methamphetamines Screen NEGATIVE NEGATIVE Urine Benzodiazepines Screen NEGATIVE NEGATIVE Urine Cocaine Screen NEGATIVE NEGATIVE Urine Cannabinoids Screen NEGATIVE NEGATIVE My Orders Orders - HALIMA RODRIGUEZ DO Urine Bedside (01/09/23 18:50) Ua Culture If Indicated (01/09/23 18:50) Ed Iv/Invasive Line Start (01/09/23 18:55) Monitor-Rhythm Ecg Trace Only (01/09/23 18:55) Amylase (01/09/23 18:55) Cbc With Automated Diff (01/09/23 18:55) Comprehensive Metabolic Panel (01/09/23 18:55) Lipase (01/09/23 18:55) Ct Abd/Pelvis Wo(Kidney Stone) (01/09/23 18:55) Ed Iv/Invasive Line Start (01/09/23 18:55) Lactated Ringers (Lr 1000 Ml Iv Solution (01/09/23 19:00) Fentanyl Inj (Sublimaze Injection) (01/09/23 18:55) Drug Screen Stat (Urine) (01/09/23 19:08) Ondansetron Injection (Zofran Injectio (01/09/23 19:30) Fentanyl Inj (Sublimaze Injection) (01/09/23 20:30) Us Pelvic (Non Ob)25075 (01/09/23 ) Rx-Cyclobenzaprine Tablet (Rx-Flexeril T (01/09/23 22:10) Rx-Naproxen (Rx-Naprosyn) (01/09/23 22:10) Medications Given in ED Current Medications Medications Dose Ordered Sig/Tiffanie Route Start Time Stop Time Status Last Admin Dose Admin Fentanyl Citrate 50 mcg ONCE ONCE IVP 01/09/23 20:30 01/09/23 20:31 DC 01/09/23 20:41 50 MCG Lactated Ringer's 1,000 ml @ 0 mls/hr Q0M ONCE IV 01/09/23 19:00 01/09/23 19:01 DC 01/09/23 19:15 1,000 MLS/HR Ondansetron HCl 4 mg ONCE ONCE IV 01/09/23 19:30 01/09/23 19:31 DC 01/09/23 19:21 4 MG Vital Signs/I&O 01/09/23 18:22 Temp 36.8 Pulse 108 Resp 16 B/P (MAP) 137/88 (104) Pulse Ox 97 O2 Delivery Room Air Blood Pressure Mean: 104 Progress Progress Note : Progress Note REVIEWED PRIOR RECORDS THIS IS PT'S 3RD VISIT SINCE 12/15/22. LAST VISIT 12/19/22 FOR ANXIETY AT DISMISSAL, PT NOW STATES THIS HAPPENS EVERY MONTH--ALWAYS ON SAME SIDE Diagnostic Imaging Comments CT ABDOMEN/PELVIS--PER RADIOLOGIST REPORT AT 2013 Findings: Visualized lung bases: There is minimal bibasilar atelectasis. Liver: Unremarkable as visualized. Gallbladder: Unremarkable. Pancreas: Unremarkable as visualized. Spleen: Unremarkable as visualized. Adrenal glands: Unremarkable. Kidneys/ ureters: Unremarkable as visualized. Aorta: Unremarkable as visualized. Intraabdominal/ retroperitoneal contents: There are multiple subcentimeter short axis mesenteric lymph nodes and pericecal lymph nodes. Intestines: There is decompressed appearance of wall thickening involving the rectum, sigmoid colon, descending colon, and distal transverse colon. These findings are nonspecific. There is no evidence of intestinal obstruction. The remainder of the intestines show no significant abnormality. Appendix: Unremarkable. Bladder: Unremarkable as visualized. Pelvic organs: Unremarkable as visualized. Extra abdominal/ pelvis regions: Unremarkable. Abdominal wall: Unremarkable. Bones: Chronic bilateral L5 spondylolysis with no significant listhesis seen. Impression: 1: There is decompressed appearance of wall thickening involving the transverse colon all the way to the rectum. This is nonspecific and may be related to contraction versus colitis. 2: There are multiple mesenteric and pericecal lymph nodes which may be related to mesenteric adenitis. 3: There is no other significant possibly acute abnormality seen on this exam. There are no urinary tract stones. 4: There is chronic bilateral L5 spondylolysis with no significant listhesis. PELVIC ULTRASOUND--PER RADIOLOGIST REPORT AT 2207 dated 01/09/2023. Findings: The uterus has normal echogenicity and echotexture with normal shape and configuration. The uterus measures 8.3 cm x 3.5 cm x 5.2 cm. Uterus is anteverted. The endometrial stripe measures 11 mm. The right ovary is unremarkable with normal spectral Doppler waveform. The right ovary measures 2.6 cm x 1.8 cm x 2.1 cm. The left ovary is unable to be visualized and is obscured by overlying bowel gas. There is no significant free fluid in the pelvis. Impression: 1: Limited exam due to patient refusing transvaginal ultrasound. Overlying bowel gas obscures the left ovary and the left ovary is unable to be evaluated. 2: Otherwise, the uterus and right ovary show no significant abnormality. There is no free fluid in the pelvis. Reviewed: Reviewed by Me Departure Impression Primary Impression: RLQ abdominal pain Additional Impression: Right flank pain Disposition: 01 HOME, SELF-CARE Condition: Stable Departure-Patient Inst. Decision time for Depature: 22:08 Referrals: TRAVIS PERDOMO DO [facility] [place] Patient Instructions: Abdominal Pain, Adult ED, Flank Pain (DC) Add. Discharge Instructions: HOME, REST ACTIVITIES TOLERATED FOLLOW UP WITH [facility] IN 2-3 DAYS IF NO BETTER, RETURN TO ER IF WORSE All discharge instructions reviewed with patient and/or family. Voiced understanding. Scripts Cyclobenzaprine HCl (Cyclobenzaprine HCl) 10 Mg Tablet 10 MG PO Q8H PRN for SPASMS, #15 TAB 0 Refills Prov: HALIMA RODRIGUEZ DO 01/09/23 Naproxen (Naproxen) 500 Mg Tablet. 500 MG PO BID, #20 TAB Prov: HALIMA RODRIGUEZ DO 01/09/23 HALIMA RODRIGUEZ DO Jan 09, 2023 19:02
[2023-01-09 19:13] LABS: BASOPHILS # (AUTO) 0.1 10^3/uL (0.0-0.1); BASOPHILS % (AUTO) 1 % (0-10); EOSINOPHILS # (AUTO) 0.4 10^3/uL (0.0-0.3); EOSINOPHILS % (AUTO) 4 % (0-10); HEMATOCRIT 39 % (35-52); HEMOGLOBIN 12.5 g/dL (11.5-16.0); LYMPHOCYTES % (AUTO) 29 % (12-44); MEAN CORPUSCULAR HEMOGLOBIN 28 pg (25-34); MEAN CORPUSCULAR HGB CONC 33 g/dL (32-36); MEAN CORPUSCULAR VOLUME 86 fL (80-99); MEAN PLATELET VOLUME 9.8 fL (9.0-12.2); MONOCYTES # (AUTO) 0.6 10^3/uL (0.0-1.0); MONOCYTES % (AUTO) 6 % (0-12); NEUTROPHILS # (AUTO) 6.4 10^3/uL (1.8-7.8); NEUTROPHILS % (AUTO) 61 % (42-75); PLATELET COUNT 435 10^3/uL (130-400); WHITE BLOOD COUNT 10.6 10^3/uL (4.3-11.0)
[2023-01-09 19:16] LABS: BILIRUBIN,URINE NEGATIVE (NEGATIVE); CLARITY,URINE CLEAR; COLOR,URINE YELLOW; GLUCOSE, URINE (UA) NEGATIVE (NEGATIVE); KETONES,URINE NEGATIVE (NEGATIVE); LEUKOCYTE ESTERASE ,URINE NEGATIVE (NEGATIVE); NITRITE,URINE NEGATIVE (NEGATIVE); PROTEIN,URINE NEGATIVE (NEGATIVE)
[2023-01-09 19:23] LABS: CALCIUM 9.2 MG/DL (8.5-10.1)
[2023-01-09 19:24] LABS: TOTAL PROTEIN 7.5 GM/DL (6.4-8.2)
[2023-01-09 19:26] LABS: AMORPHOUS SEDIMENT,UR FEW AMOR URATES /LPF; BACTERIA,URINE FEW /HPF; SQUAMOUS EPITHELIAL CELL,UR 25-50 /HPF; WBC,URINE RARE /HPF
[2023-01-09 19:26] LABS: BILIRUBIN,TOTAL 0.2 MG/DL (0.1-1.0)
[2023-01-09 19:28] LABS: CREATININE SERUM 0.94 MG/DL (0.60-1.30)
[2023-01-09 19:29] LABS: AMPHETAMINE SCREEN, URINE NEGATIVE (NEGATIVE); BARBITURATE SCREEN URINE NEGATIVE (NEGATIVE); BENZODIAZEPINES SCREEN URINE NEGATIVE (NEGATIVE); CANNABINOID SCREEN, URINE NEGATIVE (NEGATIVE); COCAINE SCREEN URINE NEGATIVE (NEGATIVE); OPIATE SCREEN URINE NEGATIVE (NEGATIVE); TRICYCLIC ANTIDEPRESSANTS SCRE POSITIVE (NEGATIVE)
[2023-01-09 19:30] LABS: METHADONE STAT NEGATIVE (NEGATIVE); OXYCODONE STAT NEGATIVE (NEGATIVE); PROPOXYPHENE STAT NEGATIVE (NEGATIVE)
[2023-01-09] MEDS ORDERED: ONDANSETRON 4 MG/2 ML (SDV) Z0FRAN IV ONE (19:30)
--- NOTE | 2023-01-09 20:10 | Diagnostic Imaging Report ---
Clinical Indication: Patient with flank pain. Kidney stone suspected. Patient has right lower abdominal pain that radiates into her back, started yesterday. Exam: CT exam of the abdomen and pelvis is performed without IV or oral contrast using stone protocol. Coronal and sagittal reformatted images were created. Auto Exposure Controls were utilized during the CT exam to meet ALARA standards for radiation dose reduction. Comparisons: None. Findings: Visualized lung bases: There is minimal bibasilar atelectasis. Liver: Unremarkable as visualized. Gallbladder: Unremarkable. Pancreas: Unremarkable as visualized. Spleen: Unremarkable as visualized. Adrenal glands: Unremarkable. Kidneys/ ureters: Unremarkable as visualized. Aorta: Unremarkable as visualized. Intraabdominal/ retroperitoneal contents: There are multiple subcentimeter short axis mesenteric lymph nodes and pericecal lymph nodes. Intestines: There is decompressed appearance of wall thickening involving the rectum, sigmoid colon, descending colon, and distal transverse colon. These findings are nonspecific. There is no evidence of intestinal obstruction. The remainder of the intestines show no significant abnormality. Appendix: Unremarkable. Bladder: Unremarkable as visualized. Pelvic organs: Unremarkable as visualized. Extra abdominal/ pelvis regions: Unremarkable. Abdominal wall: Unremarkable. Bones: Chronic bilateral L5 spondylolysis with no significant listhesis seen. Impression: 1: There is decompressed appearance of wall thickening involving the transverse colon all the way to the rectum. This is nonspecific and may be related to contraction versus colitis. 2: There are multiple mesenteric and pericecal lymph nodes which may be related to mesenteric adenitis. 3: There is no other significant possibly acute abnormality seen on this exam. There are no urinary tract stones. 4: There is chronic bilateral L5 spondylolysis with no significant listhesis. Dictated by: Dictated on workstation # [id number]
[2023-01-09] MEDS ORDERED: fentaNYL INJ 100 MCG/2 ML AMP IVP ONE ×2 (20:30→22:15)
--- NOTE | 2023-01-09 22:06 | Diagnostic Imaging Report ---
Clinical Indication: Patient with right lower quadrant pain. Exam: Transabdominal ultrasound of the pelvis. Patient refused transvaginal ultrasound Comparison: CT scan of the abdomen and pelvis without contrast dated 01/09/2023. Findings: The uterus has normal echogenicity and echotexture with normal shape and configuration. The uterus measures 8.3 cm x 3.5 cm x 5.2 cm. Uterus is anteverted. The endometrial stripe measures 11 mm. The right ovary is unremarkable with normal spectral Doppler waveform. The right ovary measures 2.6 cm x 1.8 cm x 2.1 cm. The left ovary is unable to be visualized and is obscured by overlying bowel gas. There is no significant free fluid in the pelvis. Impression: 1: Limited exam due to patient refusing transvaginal ultrasound. Overlying bowel gas obscures the left ovary and the left ovary is unable to be evaluated. 2: Otherwise, the uterus and right ovary show no significant abnormality. There is no free fluid in the pelvis. Dictated by: Dictated on workstation # [id number]
[2023-01-09] MEDS ORDERED: NAPR500T8 PO (22:09)
[2023-01-09] MEDS ORDERED: CYCL10TA25 PO (22:09)
[2023-01-09] MEDS ORDERED: RX-NAPROXEN (NAPROSYN) 250 MG TAB PPK#4 PO STA (22:10)
[2023-01-09] MEDS ORDERED: RX-CYCLOBENZAPRINE 10 MG (FLEXERIL) TAB PPK#3 PO STA (22:10)
[2023-01-09] MEDS ORDERED: ORPHENADRINE 60 MG/2 ML (NORFLEX) AMP (ED ONLY) IV ONE (22:15)
[2023-01-09 22:49] VITALS: BP 146/87
== END 2023-01-09 22:55 | disposition home or self-care (01) ==
LOC: EDUNIT# 18:17 → ER 18:19
DX: R10.31 Right lower quadrant pain (principal); E66.9 Obesity, unspecified; F17.290 Nicotine dependence, other tobacco product, uncomplicated; Z68.43 Body mass index [BMI] 50.0-59.9, adult; Z90.49 Acquired absence of other specified parts of digestive tract; Z88.6 Allergy status to analgesic agent; Z28.310 Unvaccinated for COVID-19
CPT/HCPCS: 36415; 74176; 76856; 80053; 80306; 81000; 82150; 83690; 84703; 85025

== ENCOUNTER 2023-01-12 19:33 | Emergency (ER) | payer SELFPAY ==
[~2023-01-12] VITALS: Ht 157.5 cm; Wt 133.8 kg
[~2023-01-12 19:33] MED LIST changes: +NAPR500T8 PO
[2023-01-12 19:46] VITALS: BP 140/83
[2023-01-12 20:10] LABS: BILIRUBIN,URINE NEGATIVE (NEGATIVE); CLARITY,URINE SL CLOUDY; COLOR,URINE YELLOW; GLUCOSE, URINE (UA) NEGATIVE (NEGATIVE); KETONES,URINE NEGATIVE (NEGATIVE); LEUKOCYTE ESTERASE ,URINE NEGATIVE (NEGATIVE); NITRITE,URINE NEGATIVE (NEGATIVE); PROTEIN,URINE NEGATIVE (NEGATIVE)
[2023-01-12 20:19] LABS: BACTERIA,URINE TRACE /HPF
--- NOTE | 2023-01-12 20:21 | ED GU-Female ---
General Chief Complaint: - Reproductive Stated Complaint: LOWER ABD PAIN Nursing Triage Note: c/o right ovarian pain since 01/08/23, seen here for same 01/09/23 Source: patient Exam Limitations: no limitations History of Present Illness Date Seen by Provider: Jan 12, 2023 Time Seen by Provider: 20:01 Initial Comments 27-year-old female presents with reports of right lower quadrant abdominal pain. She was seen here on Sunday and had a full work-up with labs, CT, and ultrasound. She was told that is likely scar tissue due to possible endometriosis. She has an appointment with primary care on Sunday. States she has been taking a muscle relaxer and naproxen for the pain but has not provided any relief. She denies any change in this pain. States this pain occurs every time either prior to or after her menstrual cycle. She just finished her menstrual cycle. Denies fevers, chest pain, shortness of air, diarrhea, dysuria. She denies vaginal discharge. States she has been in a monogamous relationship for the last 4 years. Denies concern for STDs reports some nausea, no vomiting. She states past medical history includes Lyme disease, currently does not take any other medications. Allergies and Home Medications Allergies Coded Allergies: ketorolac (Verified Allergy, Unknown, 12/15/22) Patient Home Medication List Home Medication List Reviewed: Yes Cyclobenzaprine HCl (Cyclobenzaprine HCl) 10 Mg Tablet, 10 MG PO Q8H PRN for SPASMS Prescribed by: HALIMA RODRIGUEZ on 01/09/232208 Escitalopram Oxalate (Lexapro) 20 Mg Tablet, 20 MG PO DAILY, (Reported) Entered as Reported by: INGA NIELSON on 02/13/18 1354 Hydrocodone Bit/Acetaminophen (HYDROcodone/APAP 5 MG/325 MG TAB) 1 Tab Tab, 1 TAB PO Q6H PRN for PAIN-MODERATE (5-7) Prescribed by: Delfino Lehman on 12/15/22 1754 Medroxyprogesterone Acetate (Depo-Subq Provera 104) 104 Mg/0.65 Ml Syringe, 104 MG SQ Q 3MO, (Reported) Entered as Reported by: INGA NIELSON on 02/13/18 1354 Morphine Sulfate (Morphine Sulfate IR Tablet) 15 Mg Tablet, 15 MG PO TID PRN for PAIN-SEVERE (8-10) Prescribed by: MEGGAN DEAL on 08/28/20 1536 Naproxen (Naproxen) 500 Mg Tablet.dr, 500 MG PO BID Prescribed by: HALIMA RODRIGUEZ on 01/09/232208 [Propranolol] , (Reported) Entered as Reported by: AJ ZARCO on 08/28/201551 [Seroquel] , (Reported) Entered as Reported by: AJ ZARCO on 08/28/201551 Review of Systems Review of Systems Constitutional: see HPI Past Imbhpiq-Pipkjp-Nqxlkg Hx Patient Social History Tobacco Use?: Yes Substance use?: No Alcohol Use?: Yes Alcohol Frequency: Once in a while Pt feels they are or have been: No Immunizations Up To Date Tetanus Booster (TDap): Less than 5yrs PED Vaccines UTD: Yes First/Initial COVID19 Vaccinat: DENIES Second COVID19 Vaccination [place]: DENIES Third COVID19 Vaccination Date: DENIES Seasonal Allergies Seasonal Allergies: No Past Medical History Surgery/Hospitalization HX: ANXIETY C SECT, JACOB Surgeries: Yes ( X 1; CHOLECYSTECTOMY) Section, Gallbladder Respiratory: No Cardiac: No Neurological: No Last Menstrual Period: Jan 05, 2023 Reproductive Disorders: No Female Reproductive Disorders: Denies Sexually Transmitted Disease: No HIV/AIDS: No Genitourinary: No Gastrointestinal: Yes (S/P JACOB) Gastroesophageal Reflux, Gall Bladder Disease Musculoskeletal: No Endocrine: No HEENT: No Loss of Vision: Bilateral Hearing Impairment: Denies Cancer: No Psychosocial: Yes Anxiety, Depression Integumentary: No Blood Disorders: No Adverse Reaction/Blood Tranf: No (N/A) Family Medical History Cardiovascular disease 19 FATHER Hypertension 19 FATHER 19 MOTHER Heart Disease, Hypertension Physical Exam Vital Signs Vital Signs - First Documented 01/12/23 19:46 Temp 36.9 Pulse 109 Resp 16 B/P (MAP) 140/83 (102) Pulse Ox 97 O2 Delivery Room Air Capillary Refill : Less Than 3 Seconds Height, Weight, BMI Height: 5'2.00" Weight: 275lbs. 0.0oz. [id number]; 53.00 BMI Method:Stated General Appearance: WD/WN, mild distress Neck: supple, normal inspection Cardiovascular: regular rate, rhythm, no edema, no gallop, no JVD, no murmur Respiratory: lungs clear, normal breath sounds, no respiratory distress, no accessory muscle use Gastrointestinal: normal bowel sounds, soft, guarding Extremities: normal range of motion, normal inspection Neurologic/Psychiatric: alert, normal mood/affect Skin: normal color, warm/dry Progress/Results/Core Measures Suspected Sepsis SIRS Temperature: Pulse: 109 Respiratory Rate: 16 Blood Pressure 140 /83 Mean: 102 Results/Orders Lab Results Laboratory Tests Test 01/12/23 19:55 Range/Units My Orders Orders - CHRISTINA FELDMAN APRN Ua Culture If Indicated (01/12/23 19:49) Urine Bedside (01/12/23 19:49) Vital Signs/I&O 01/12/23 19:46 Temp 36.9 Pulse 109 Resp 16 B/P (MAP) 140/83 (102) Pulse Ox 97 O2 Delivery Room Air Capillary Refill : Less Than 3 Seconds Blood Pressure Mean: 102 Progress Note : Time: 20:15 Progress Note Patient seen and evaluated, resting in recliner, mild distress. Based on exam and symptoms, plan was to discharge patient with follow-up next week with primary care provider. According to external medication history, patient has naproxen, muscle relaxer, oxycodone, and tramadol. Discussed continuing her naproxen, muscle relaxers, and oxycodone which she was prescribed for this pain. Also discussed using warm compresses or heating pad for pain. Patient verbalized understanding, agreed to discharge plan. Discharge instructions and return precautions provided. When nurse went to discharge patient, it was noted that patient had left without discharge papers. Departure Impression Primary Impression: RLQ abdominal pain Disposition: AGAINST MEDICAL ADVICE Condition: Stable Departure-Patient Inst. Decision time for Depature: 20:15 Referrals: [facility] (PCP/Family) Primary Care Physician Patient Instructions: Abdominal Pain, Adult ED Add. Discharge Instructions: Follow-up with primary care next week as scheduled. You may also want to try to get in with a perianesthesia rn. Continue taking your currently prescribed medications for pain. Use a heating pad for pain. Return for fevers, or any other new, concerning, or worsening symptoms. All discharge instructions reviewed with patient and/or family. Voiced understanding. CHRISTINA FELDMAN APRN Jan 12, 2023 20:21
== END 2023-01-12 20:20 | disposition left against medical advice (07) ==
LOC: EDUNIT# 19:33 → ER 19:35
DX: R10.31 Right lower quadrant pain (principal); Z90.49 Acquired absence of other specified parts of digestive tract; Z88.6 Allergy status to analgesic agent; Z28.310 Unvaccinated for COVID-19
CPT/HCPCS: 81000; 84703; 99282

== ENCOUNTER 2023-01-16 19:30 | Emergency (ER) | payer SELFPAY ==
[~2023-01-16] VITALS: Ht 157.4 cm; Wt 133.8 kg
[2023-01-16] MEDS ORDERED: fentaNYL INJ 100 MCG/2 ML AMP IVP STA (19:49)
--- NOTE | 2023-01-16 19:55 | ED GU-Female ---
General Chief Complaint: - Reproductive Stated Complaint: OVARIAN PAIN Nursing Triage Note: PT AMB TO [facility] WITH CC OF RIGHT SIDED OVARIAN PAIN THAT "COMES AND GOES" FOR A WEEK. PT WAS SEEN SEVERAL TIMES IN ER FOR ISSUE AND HAS NOT ANY PAIN RELIEF. Source: patient Exam Limitations: no limitations History of Present Illness Date Seen by Provider: Jan 16, 2023 Time Seen by Provider: 19:52 Initial Comments Patient is a 27-year-old female with a history of ovarian cyst who presents to the ED with right lower quadrant abdominal pain. Pain is described as sharp and intermittent. This has been constant for the past week and a half. Pain does radiate to the left side. This is patient's third visit in the past week with similar pain. She had ultrasound performed on the that was negative right ovarian cyst or uterine abnormalities. Patient also had a CT abdomen pelvis with potential mesenteric adenitis. Patient denies of any urinary symptoms. No current vaginal bleeding. Last menstrual cycle was 2 weeks ago. She has been taken naproxen and muscle relaxer without much improvement. She denies fever, chills, chest pain, shortness of breath, vomiting or diarrhea. She has associated nausea. History of similar pain 2 years ago secondary to a rupture ovarian cyst required hospitalization Allergies and Home Medications Allergies Coded Allergies: ketorolac (Verified Allergy, Unknown, 12/15/22) Patient Home Medication List Home Medication List Reviewed: Yes Cyclobenzaprine HCl (Cyclobenzaprine HCl) 10 Mg Tablet, 10 MG PO Q8H PRN for SPASMS Prescribed by: HALIMA RODRIGUEZ on 01/09/239 Cyclobenzaprine HCl (Cyclobenzaprine HCl) 10 Mg Tablet, 10 MG PO TID Prescribed by: PB AVALOS on 01/16/23 2140 Escitalopram Oxalate (Lexapro) 20 Mg Tablet, 20 MG PO DAILY, (Reported) Entered as Reported by: INGA NIELSON on 02/13/18 1354 Hydrocodone Bit/Acetaminophen (HYDROcodone/APAP 5 MG/325 MG TAB) 1 Tab Tab, 1 TAB PO Q6H PRN for PAIN-MODERATE (5-7) Prescribed by: Delfino Lehman on 12/15/22 1754 Hydrocodone/Acetaminophen (Hydrocodone-Acetamin 5-325 mg) 5 Mg-325 Mg Tablet, 1 TAB PO Q4H PRN for PAIN-MODERATE (5-7) Prescribed by: PB AVALOS on 01/16/23 2140 Medroxyprogesterone Acetate (Depo-Subq Provera 104) 104 Mg/0.65 Ml Syringe, 104 MG SQ Q 3MO, (Reported) Entered as Reported by: INGA NIELSON on 02/13/18 1354 Morphine Sulfate (Morphine Sulfate IR Tablet) 15 Mg Tablet, 15 MG PO TID PRN for PAIN-SEVERE (8-10) Prescribed by: MEGGAN DEAL on 08/28/20 1536 Naproxen (Naproxen) 500 Mg Tablet.dr, 500 MG PO BID Prescribed by: HALIMA RODRIGUEZ on 01/09/232208 [Propranolol] , (Reported) Entered as Reported by: AJ ZARCO on 08/28/20 155 [Seroquel] , (Reported) Entered as Reported by: AJ ZARCO on 08/28/201551 Review of Systems Review of Systems Constitutional: No chills, No diaphoresis, No malaise, No weakness EENTM: No blurred vision, No double vision, No mouth pain, No mouth swelling, No throat pain, No throat swelling Respiratory: No cough Cardiovascular: No chest pain, No edema Gastrointestinal: abdominal pain; No constipation, No diarrhea; nausea; No vomiting Genitourinary: denies burning, denies discharge Musculoskeletal: No back pain, No joint pain Skin: No change in color, No change in hair/nails All Other Systemes Reviewed Negative Unless Noted: Yes Past Favgpek-Zvadxh-Bxoolq Hx Patient Social History Use of E-Cig and/or Vaping dev: Yes E-Cig or Vaping type used: Nicotine Substance use?: No Alcohol Use?: Yes Alcohol Frequency: Once in a while Immunizations Up To Date Tetanus Booster (TDap): Less than 5yrs PED Vaccines UTD: Yes First/Initial COVID19 Vaccinat: DENIES Second COVID19 Vaccination [place]: DENIES Third COVID19 Vaccination Date: DENIES Seasonal Allergies Seasonal Allergies: No Past Medical History Surgery/Hospitalization HX: ANXIETY C SECT, JACOB Surgeries: Yes ( X 1; CHOLECYSTECTOMY) Section, Gallbladder Respiratory: No Cardiac: No Neurological: No Reproductive Disorders: No Female Reproductive Disorders: Denies Sexually Transmitted Disease: No HIV/AIDS: No Genitourinary: No Gastrointestinal: Yes (S/P JACOB) Gastroesophageal Reflux, Gall Bladder Disease Musculoskeletal: No Endocrine: No HEENT: No Loss of Vision: Bilateral Hearing Impairment: Denies Cancer: No Psychosocial: Yes Anxiety, Depression Integumentary: No Blood Disorders: No Adverse Reaction/Blood Tranf: No (N/A) Family Medical History Cardiovascular disease 19 FATHER Hypertension 19 FATHER 19 MOTHER Heart Disease, Hypertension Physical Exam Vital Signs Vital Signs - First Documented 01/16/23 19:34 Pulse 111 B/P (MAP) 147/99 (115) Pulse Ox 96 O2 Delivery Room Air Capillary Refill : Height, Weight, BMI Height: 5'2.00" Weight: 275lbs. 0.0oz. 124.160436yr; 54.00 BMI Method:Stated General Appearance: WD/WN, no apparent distress HEENT: PERRL/EOMI, normal ENT inspection, TMs normal, pharynx normal Neck: non-tender, full range of motion, supple, normal inspection Cardiovascular: regular rate, rhythm, no edema, no gallop, no JVD Respiratory: chest non-tender, lungs clear, normal breath sounds, no respiratory distress, no accessory muscle use Gastrointestinal: normal bowel sounds, soft, no organomegaly, tenderness (Right lower quadrant tenderness on palpation) Back: normal inspection Extremities: normal range of motion, non-tender, normal inspection, no pedal edema Neurologic/Psychiatric: lan engineer II-XII nml as tested, no motor/sensory deficits, alert, normal mood/affect, oriented x 3 Skin: normal color, warm/dry Progress/Results/Core Measures Suspected Sepsis SIRS Temperature: Pulse: 111 Respiratory Rate: Laboratory Tests 01/16/23 20:10: White Blood Count 11.2H Blood Pressure 147 /99 Mean: 115 Laboratory Tests 01/16/23 20:10: Creatinine 0.93, Platelet Count 480H, Total Bilirubin 0.3 Results/Orders Lab Results Laboratory Tests Test 01/16/23 19:39 01/16/23 20:10 Range/Units Urine Color YELLOW Urine Clarity SL CLOUDY Urine pH 7.0 5-9 Urine Specific [place] 1.025 H 1.016-1.022 Urine Protein NEGATIVE NEGATIVE Urine Glucose (UA) NEGATIVE NEGATIVE Urine Ketones NEGATIVE NEGATIVE Urine Nitrite NEGATIVE NEGATIVE Urine Bilirubin NEGATIVE NEGATIVE Urine Urobilinogen 0.2 < = 1.0 MG/DL Urine Leukocyte Esterase NEGATIVE NEGATIVE Urine RBC (Auto) NEGATIVE NEGATIVE Urine RBC NONE /HPF Urine WBC 0-2 /HPF Urine Squamous Epithelial Cells 5-10 /HPF Urine Crystals NONE /LPF Urine Bacteria MODERATE H /HPF Urine Casts NONE /LPF Urine Mucus SMALL H /LPF Urine Culture Indicated YES Urine Test NEGATIVE NEGATIVE White Blood Count 11.2 H 4.3-11.0 10^3/uL Red Blood Count 4.38 3.80-5.11 10^6/uL Hemoglobin 12.1 11.5-16.0 g/dL Hematocrit 38 35-52 % Mean Corpuscular Volume 86 80-99 fL Mean Corpuscular Hemoglobin 28 25-34 pg Mean Corpuscular Hemoglobin Concent 32 32-36 g/dL Red Cell Distribution Width 12.6 10.0-14.5 % Platelet Count 480 H 130-400 10^3/uL Mean Platelet Volume 9.8 9.0-12.2 fL Immature Granulocyte % (Auto) 0 % Neutrophils (%) (Auto) 61 42-75 % Lymphocytes (%) (Auto) 29 12-44 % Monocytes (%) (Auto) 6 0-12 % Eosinophils (%) (Auto) 4 0-10 % Basophils (%) (Auto) 1 0-10 % Neutrophils # (Auto) 6.8 1.8-7.8 10^3/uL Lymphocytes # (Auto) 3.2 1.0-4.0 10^3/uL Monocytes # (Auto) 0.7 0.0-1.0 10^3/uL Eosinophils # (Auto) 0.4 H 0.0-0.3 10^3/uL Basophils # (Auto) 0.1 0.0-0.1 10^3/uL Immature Granulocyte # (Auto) 0.1 0.0-0.1 10^3/uL Sodium Level 139 135-145 MMOL/L Potassium Level 4.0 3.6-5.0 MMOL/L Chloride Level 104 98-107 MMOL/L Carbon Dioxide Level 25 21-32 MMOL/L Anion Gap 10 5-14 MMOL/L Blood Urea Nitrogen 13 7-18 MG/DL Creatinine 0.93 0.60-1.30 MG/DL Estimat Glomerular Filtration Rate 85 BUN/Creatinine Ratio 14 Glucose Level 99 70-105 MG/DL Calcium Level 9.8 8.5-10.1 MG/DL Corrected Calcium 9.9 8.5-10.1 MG/DL Total Bilirubin 0.3 0.1-1.0 MG/DL Aspartate Amino Transf (AST/SGOT) 9 5-34 U/L Alanine Aminotransferase (ALT/SGPT) 10 0-55 U/L Alkaline Phosphatase 71 40-136 U/L Total Protein 7.2 6.4-8.2 GM/DL Albumin 3.9 3.2-4.5 GM/DL Lipase 23 8-78 U/L My Orders Orders - ELINOR CHAHAL Ua Culture If Indicated (01/16/23 19:44) Hcg,Qualitative Urine (01/16/23 19:44) Cbc With Automated Diff (01/16/23 19:49) Comprehensive Metabolic Panel (01/16/23 19:49) Lipase (01/16/23 19:49) Iv/Invasive Line Insertion .IV INSERT (01/16/23 19:49) Fentanyl Inj (Sublimaze Injection) (01/16/23 19:49) Ondansetron Injection (Zofran Injectio (01/16/23 20:00) Urine Culture (01/16/23 19:39) Morphine Injection (Morphine Injection (01/16/23 21:00) Rx-Hydrocodone/Apap 5-325 Mg (Rx-Vicodin (01/16/23 21:45) Medications Given in ED Current Medications Medications Dose Ordered Sig/Tiffanie Route Start Time Stop Time Status Last Admin Dose Admin Acetaminophen/ Hydrocodone Bitart 1 ea ONCE ONCE PO 01/16/23 21:45 01/16/23 21:46 DC 01/16/23 21:57 1 EA Morphine Sulfate 4 mg ONCE ONCE IVP 01/16/23 21:00 01/16/23 21:01 DC 01/16/23 21:01 4 MG Ondansetron HCl 4 mg ONCE ONCE IVP 01/16/23 20:00 01/16/23 20:01 DC 01/16/23 20:25 4 MG Vital Signs/I&O 01/16/23 01/16/23 19:34 22:00 Pulse 111 B/P (MAP) 147/99 (115) 128/107 Pulse Ox 96 O2 Delivery Room Air Capillary Refill : Blood Pressure Mean: 115 Departure Communication (PCP) Reviewed previous ER visits, lab test, imaging, H&P's. Patient was seen here on the for right lower quad abdominal pain. She had a CT abdomen and pelvis that was negative for acute appendicitis, large ovarian cyst, uterine mass, obstruction, abscess, colitis. It did note mesenteric adenitis. She had an ultrasound which was negative for ovarian torsion. Her lab work was otherwise unremarkable. She was sent home with naproxen and Flexeril but has had continuous intermittent pain. Pain is located to the same area. She has no urinary symptoms. She was seen on the here for similar pain and was discharged with strict return precautions. Due to her location of pain CBC, CMP and urinalysis was ordered. CBC showed a white blood count of 11.2. Chemistry was unremarkable. Urinalysis without strong evidence of infection. Negative for . She was given 2 doses of pain medication with improvement of pain. She denies history of endometriosis, abnormal vaginal bleeding. No current vomiting or diarrhea. Due to her full work-up here on the and similar lab work imaging was held at this time. Unclear etiology of this pain. Pain could be related to the mesenteric adenitis. There is no evidence of ovarian cyst, ovarian torsion, pyelonephritis, cystitis, psoas abscess, colitis, peritonitis, appendicitis, kidney stone. She states she had this pain prior in the past was related to a rupture ovarian cyst required admission. Discussed outpatient follow-up with primary care physician for further evaluation. Provided few days worth of hydrocodone to take with naproxen. She wanted a refill of her Flexeril which was provided. Return precautions were discussed with patient. Impression Primary Impression: RLQ abdominal pain Disposition: HOME, SELF-CARE Condition: Stable Departure-Patient Inst. Decision time for Depature: 21:38 Referrals: [facility] (PCP/Family) Primary Care Physician ANDREW MCDOWELL DO Patient Instructions: Abdominal Pain, Adult ED Add. Discharge Instructions: Recommend follow-up your primary care physician 2 to 3 days for reevaluation. Provide pain medication. Provided gynecology outpatient number All discharge instructions reviewed with patient and/or family. Voiced understanding. Scripts Cyclobenzaprine HCl (Cyclobenzaprine HCl) 10 Mg Tablet 10 MG PO TID, #10 TAB Prov: ELINOR CHAHAL 01/16/23 Hydrocodone/Acetaminophen (Hydrocodone-Acetamin 5-325 mg) 5 Mg-325 Mg Tablet 1 TAB PO Q4H PRN for PAIN-MODERATE (5-7), #6 TAB Prov: ELINOR CHAHAL 01/16/23 ELINOR CHAHAL Jan 16, 2023 19:55
[2023-01-16 19:56] LABS: BILIRUBIN,URINE NEGATIVE (NEGATIVE); CLARITY,URINE SL CLOUDY; COLOR,URINE YELLOW; GLUCOSE, URINE (UA) NEGATIVE (NEGATIVE); KETONES,URINE NEGATIVE (NEGATIVE); LEUKOCYTE ESTERASE ,URINE NEGATIVE (NEGATIVE); NITRITE,URINE NEGATIVE (NEGATIVE); PROTEIN,URINE NEGATIVE (NEGATIVE)
[2023-01-16] MEDS ORDERED: ONDANSETRON 4 MG/2 ML (SDV) Z0FRAN IVP ONE (20:00)
[2023-01-16 20:07] LABS: BACTERIA,URINE MODERATE /HPF; WBC,URINE 0-2 /HPF
[2023-01-16 20:26] LABS: BASOPHILS # (AUTO) 0.1 10^3/uL (0.0-0.1); BASOPHILS % (AUTO) 1 % (0-10); EOSINOPHILS # (AUTO) 0.4 10^3/uL (0.0-0.3); EOSINOPHILS % (AUTO) 4 % (0-10); HEMATOCRIT 38 % (35-52); HEMOGLOBIN 12.1 g/dL (11.5-16.0); LYMPHOCYTES # (AUTO) 3.2 10^3/uL (1.0-4.0); LYMPHOCYTES % (AUTO) 29 % (12-44); MEAN CORPUSCULAR HEMOGLOBIN 28 pg (25-34); MEAN CORPUSCULAR HGB CONC 32 g/dL (32-36); MEAN CORPUSCULAR VOLUME 86 fL (80-99); MEAN PLATELET VOLUME 9.8 fL (9.0-12.2); MONOCYTES # (AUTO) 0.7 10^3/uL (0.0-1.0); MONOCYTES % (AUTO) 6 % (0-12); NEUTROPHILS # (AUTO) 6.8 10^3/uL (1.8-7.8); NEUTROPHILS % (AUTO) 61 % (42-75); PLATELET COUNT 480 10^3/uL (130-400); WHITE BLOOD COUNT 11.2 10^3/uL (4.3-11.0)
[2023-01-16 20:37] LABS: ALBUMIN 3.9 GM/DL (3.2-4.5); BILIRUBIN,TOTAL 0.3 MG/DL (0.1-1.0); CALCIUM 9.8 MG/DL (8.5-10.1); CREATININE SERUM 0.93 MG/DL (0.60-1.30); TOTAL PROTEIN 7.2 GM/DL (6.4-8.2)
[2023-01-16] MEDS ORDERED: morphine INJ 10 MG/ML 1ML (SYR OR VIAL) IVP ONE (21:00)
[2023-01-16] MEDS ORDERED: ACHD5005 PO (21:40)
[2023-01-16] MEDS ORDERED: CYCL10TA25 PO (21:40)
[2023-01-16 22:00] VITALS: BP 128/107
== END 2023-01-16 22:01 | disposition home or self-care (01) ==
LOC: EDUNIT# 19:30 → ER 19:31
DX: R10.31 Right lower quadrant pain (principal); F17.290 Nicotine dependence, other tobacco product, uncomplicated; Z28.310 Unvaccinated for COVID-19
CPT/HCPCS: 36415; 80053; 81000; 83690; 84703; 85025; 87088; 99282

== ENCOUNTER 2023-01-26 14:57 | Emergency (ER) | payer SELFPAY ==
[~2023-01-26] VITALS: Ht 157 cm; Wt 133.0 kg
--- NOTE | 2023-01-26 15:51 | ED Abdominal Pain ---
General Chief Complaint: Abdominal/GI Problems Stated Complaint: OVARY PAIN Nursing Triage Note: PT CO OF ABD PAIN STARTED YESTERDAY, PT DOES HAVE HX OF OVARIAN CYST, MESITERIC ADENITIS. PT HAS N/V. DENIES DIFF W URINATION. PT SENT FROM [facility] Source of Information: Patient Exam Limitations: No Limitations (LEINOR CHAHAL) History of Present Illness Date Seen by Provider: Jan 26, 2023 Time Seen by Provider: 15:49 Initial Comments Patient is a 27-year-old female who presents the ED with right lower quad abdominal pain. She has a history of ovarian cyst. Patient has been complaining of this right lower quadrant pain intermittent over the past 2 weeks. Described as sharp with some radiation to the back. She finished her menstrual cycle 2 weeks ago. Denies heavier bleeding. She reports nausea wi thout vomiting. Denies any urinary symptoms. She was seen here few weeks ago had an ultrasound and CT abdomen pelvis that was otherwise unremarkable. She attempted to follow-up with gynecology but was not able to get a visit. She went to her primary care physician today and told her to come back to the ER. Patient mild to moderate distress. She denies chest pain, cough, shortness of breath. She did receive some pain medication with some improvement. Denies fever, vomiting, headache, dizziness, chest pain. (ELINOR CHAHAL) Allergies and Home Medications Allergies Coded Allergies: ketorolac (Verified Allergy, Unknown, 12/15/22) Patient Home Medication List Home Medication List Reviewed: Yes (ELINOR CHAHAL) Cyclobenzaprine HCl (Cyclobenzaprine HCl) 10 Mg Tablet, 10 MG PO Q8H PRN for SPASMS Prescribed by: HALIMA RODRIGUEZ on 01/09/232208 Cyclobenzaprine HCl (Cyclobenzaprine HCl) 10 Mg Tablet, 10 MG PO TID Prescribed by: PB AVALOS on 01/16/232139 Escitalopram Oxalate (Lexapro) 20 Mg Tablet, 20 MG PO DAILY, (Reported) Entered as Reported by: INGA NIELSON on 02/13/18 1354 Hydrocodone Bit/Acetaminophen (HYDROcodone/APAP 5 MG/325 MG TAB) 1 Tab Tab, 1 TAB PO Q6H PRN for PAIN-MODERATE (5-7) Prescribed by: Delfino Lehman on 12/15/22 1754 Hydrocodone/Acetaminophen (Hydrocodone-Acetamin 5-325 mg) 5 Mg-325 Mg Tablet, 1 TAB PO Q4H PRN for PAIN-MODERATE (5-7) Prescribed by: PB AVALOS on 01/16/23 2140 Hydrocodone/Acetaminophen (Hydrocodone-Acetamin 5-325 mg) 5 Mg-325 Mg Tablet, 1 TAB PO Q4H PRN for PAIN-MODERATE (5-7) Prescribed by: PB AVALOS on 01/26/23 1826 Medroxyprogesterone Acetate (Depo-Subq Provera 104) 104 Mg/0.65 Ml Syringe, 104 MG SQ Q 3MO, (Reported) Entered as Reported by: INGA NIELSON on 02/13/18 1354 Metronidazole (Metronidazole) 500 Mg Tablet, 500 MG PO BID Prescribed by: PB AVALOS on 01/26/23 1827 Morphine Sulfate (Morphine Sulfate IR Tablet) 15 Mg Tablet, 15 MG PO TID PRN for PAIN-SEVERE (8-10) Prescribed by: MEGGAN DEAL on 08/28/20 1536 Naproxen (Naproxen) 500 Mg Tablet.dr, 500 MG PO BID Prescribed by: HALIMA RODRIGUEZ on 01/09/232208 [Propranolol] , (Reported) Entered as Reported by: AJ ZARCO on 08/28/20 155 [Seroquel] , (Reported) Entered as Reported by: AJ ZARCO on 08/28/201551 Review of Systems Review of Systems Constitutional: No chills, No diaphoresis, No malaise, No weakness EENTM: No Double Vision, No Eye Pain Respiratory: Denies Cough Cardiovascular: Denies Chest Pain, Denies Edema Gastrointestinal: Abdominal Pain; Denies Diarrhea, Denies Nausea, Denies Vomiting Genitourinary: Denies Burning, Denies Discharge Musculoskeletal: No back pain, No joint pain Skin: No change in color, No change in hair/nails (ELINOR CHAHAL) All Other Systems Reviewed Negative Unless Noted: Yes (ELINOR CHAHAL) Past Vthumyu-Xkrmjh-Urwtcb Hx Patient Social History Use of E-Cig and/or Vaping dev: Yes E-Cig or Vaping type used: Nicotine Use of E-Cig and/or Vaping Ricardo: Current Everyday User Substance use?: No Alcohol Use?: Yes Alcohol type: Wine Alcohol Frequency: Once in a while Pt feels they are or have been: No (ELINOR CHAHAL) Immunizations Up To Date Tetanus Booster (TDap): Less than 5yrs PED Vaccines UTD: Yes Influenza Vaccine Up-to-Date: No; Not Current First/Initial COVID19 Vaccinat: DENIES Second COVID19 Vaccination [place]: DENIES Third COVID19 Vaccination Date: DENIES (ELINOR CHAHAL) Seasonal Allergies Seasonal Allergies: No (ELINOR CHAHAL) Past Medical History Surgery/Hospitalization HX: ANXIETY C SECT, JACOB Surgeries: Yes ( X 1; CHOLECYSTECTOMY) Section, Gallbladder Respiratory: No Cardiac: No Neurological: No Reproductive Disorders: No Female Reproductive Disorders: Denies Sexually Transmitted Disease: No HIV/AIDS: No Genitourinary: No Gastrointestinal: Yes (S/P JACOB) Gastroesophageal Reflux, Gall Bladder Disease Musculoskeletal: No Endocrine: No HEENT: No Loss of Vision: Bilateral Hearing Impairment: Denies Cancer: No Psychosocial: Yes Anxiety, Depression Integumentary: No Blood Disorders: No Adverse Reaction/Blood Tranf: No (N/A) (ELINOR CHAHAL) Family Medical History Cardiovascular disease 19 FATHER Hypertension 19 FATHER 19 MOTHER Heart Disease, Hypertension (ELINOR CHAHAL) Physical Exam Vital Signs Vital Signs - First Documented 01/26/23 15:29 Temp 36.7 Pulse 116 Resp 18 B/P (MAP) 162/103 (122) Pulse Ox 97 (LINDSAY MOREL MD) Vital Signs Capillary Refill : Less Than 3 Seconds (ELINOR CHAHAL) Height/Weight/BMI Height: 5'2.00" Weight: 275lbs. 0.0oz. 124.230459kn; 53.00 BMI Method:Stated General Appearance: WD/WN, no apparent distress HEENT: PERRL/EOMI, normal ENT inspection, TMs normal, pharynx normal Neck: non-tender, full range of motion, supple, normal inspection Respiratory: chest non-tender, lungs clear, normal breath sounds, no respiratory distress, no accessory muscle use Cardiovascular: regular rate, rhythm, no edema, no gallop, no JVD Gastrointestinal: normal bowel sounds, soft, no pulsatile mass, tenderness (Right lower quadrant tenderness) Extremities: normal range of motion, non-tender, normal inspection, no pedal edema Back: normal inspection, no CVA tenderness Neurologic/Psychiatric: clinical support nurse II-XII nml as tested, no motor/sensory deficits, alert, normal mood/affect, oriented x 3 Skin: normal color, warm/dry (ELINOR CHAHAL) Progress/Results/Core Measures Results/Orders Lab Results Laboratory Tests Test 01/26/23 15:55 Range/Units White Blood Count 8.9 4.3-11.0 10^3/uL Red Blood Count 4.46 3.80-5.11 10^6/uL Hemoglobin 12.4 11.5-16.0 g/dL Hematocrit 38 35-52 % Mean Corpuscular Volume 86 80-99 fL Mean Corpuscular Hemoglobin 28 25-34 pg Mean Corpuscular Hemoglobin Concent 32 32-36 g/dL Red Cell Distribution Width 13.0 10.0-14.5 % Platelet Count 458 H 130-400 10^3/uL Mean Platelet Volume 9.7 9.0-12.2 fL Immature Granulocyte % (Auto) 0 % Neutrophils (%) (Auto) 59 42-75 % Lymphocytes (%) (Auto) 29 12-44 % Monocytes (%) (Auto) 8 0-12 % Eosinophils (%) (Auto) 3 0-10 % Basophils (%) (Auto) 1 0-10 % Neutrophils # (Auto) 5.3 1.8-7.8 X 10^3 Lymphocytes # (Auto) 2.6 1.0-4.0 X 10^3 Monocytes # (Auto) 0.7 0.0-1.0 X 10^3 Eosinophils # (Auto) 0.3 0.0-0.3 10^3/uL Basophils # (Auto) 0.0 0.0-0.1 10^3/uL Immature Granulocyte # (Auto) 0.0 0.0-0.1 10^3/uL Urine Color YELLOW Urine Clarity CLEAR Urine pH 6.5 5-9 Urine Specific [place] 1.015 L 1.016-1.022 Urine Protein NEGATIVE NEGATIVE Urine Glucose (UA) NEGATIVE NEGATIVE Urine Ketones NEGATIVE NEGATIVE Urine Nitrite NEGATIVE NEGATIVE Urine Bilirubin NEGATIVE NEGATIVE Urine Urobilinogen 0.2 < = 1.0 MG/DL Urine Leukocyte Esterase NEGATIVE NEGATIVE Urine RBC (Auto) NEGATIVE NEGATIVE Urine RBC NONE /HPF Urine WBC RARE /HPF Urine Squamous Epithelial Cells >50 H /HPF Urine Crystals PRESENT H /LPF Urine Amorphous Sediment FEW JAIME URATES H /LPF Urine Bacteria MODERATE H /HPF Urine Casts NONE /LPF Urine Mucus SMALL H /LPF Urine Culture Indicated NO Sodium Level 138 135-145 MMOL/L Potassium Level 4.0 3.6-5.0 MMOL/L Chloride Level 109 H 98-107 MMOL/L Carbon Dioxide Level 22 21-32 MMOL/L Anion Gap 7 5-14 MMOL/L Blood Urea Nitrogen 11 7-18 MG/DL Creatinine 0.95 0.60-1.30 MG/DL Estimat Glomerular Filtration Rate 83 BUN/Creatinine Ratio 12 Glucose Level 92 70-105 MG/DL Calcium Level 9.0 8.5-10.1 MG/DL Corrected Calcium 9.0 8.5-10.1 MG/DL Total Bilirubin 0.2 0.1-1.0 MG/DL Aspartate Amino Transf (AST/SGOT) 9 5-34 U/L Alanine Aminotransferase (ALT/SGPT) 9 0-55 U/L Alkaline Phosphatase 59 40-136 U/L Total Protein 7.5 6.4-8.2 GM/DL Albumin 4.0 3.2-4.5 GM/DL Lipase 32 8-78 U/L (LINDSAY MOREL MD) Micro Results Microbiology 01/26/23 Wet Prep - Final, Complete (LINDSAY MOREL MD) Vital Signs/I&O 01/26/23 01/26/23 15:29 19:00 Temp 36.7 Pulse 116 Resp 18 B/P (MAP) 162/103 (122) 129/80 Pulse Ox 97 (LINDSAY MOREL MD) Blood Pressure Mean: 122 Comment EKG showed normal sinus rhythm, QRS duration 95 MS, QTc 460 MS (ELINOR CHAHAL) Departure Communication (PCP) Reviewed previous ER visits, H&P's, imaging, lab test. This is patient's fourth visit with the same complaint over the past two weeks. She initially had an ultrasound on January 09 that was unremarkable. She had a CT abdomen and pelvis concerning for mesenteric adenitis. She was seen 2 other visits and was given pain medication. She tried to follow-up with gynecology and states that there was nothing that they could do at this time. She went to her primary care physician today and was recommended to come to the ER. Patient rates pain 10 out of 10. Located in right lower quadrant. Not able to perform transvaginal ultrasound on the and due to the increase in pain ultrasound was ordered to rule out ovarian torsion. Ultrasound did note endometrial hyperplasia 1.9 cm. Ultrasound did note a right ovarian cyst 1.5 cm. Endometrial hyperplasia change from last visit. She denies of any current vaginal bleeding or heavy bleeding. Last menstrual cycle 2 weeks ago. Recommend follow-up in 4 to 6 months with ultrasound. She was told she may have endometriosis. Due to the continued pain after no relief of pain medication. CT abdomen and pelvis was ordered to rule out any other acute changes from her last CT scan performed on [address] scan today of the abdomen and pelvis was negative for acute abnormality. Urinalysis did note some bacteria without strong evidence of infection. Squamous cells noted >50.. She performed a vaginal swab which was positive for bacterial vaginosis. Will treat with Flagyl. STD cultures pending but not concern for STDs. CBC and CMP was ordered secondary to location of pain which was otherwise unremarkable. Patient was given a dose of Zofran for nausea. Patient will be discharged with few days worth of pain medication. She did get some relief here after second round of pain medication. Gynecology outpatient follow-up for this ovarian cyst. Patient states she started having chest pain and tightness. EKG was ordered which showed normal sinus rhythm. No evidence of ST elevation or depression. Her symptoms resolved quickly. She believes she was potentially having a panic attack which I agree. She appears anxious regarding this pain. No known cardiac history (ELINOR CHAHAL) Impression Primary Impression: Right ovarian cyst Disposition: 01 HOME, SELF-CARE Condition: Stable Departure-Patient Inst. Decision time for Depature: 18:25 (ELINOR CHAHAL) Referrals: [facility] (PCP/Family) Primary Care Physician Patient Instructions: Ovarian Cysts Scripts Metronidazole (Metronidazole) 500 Mg Tablet 500 MG PO BID for 7 Days, #14 TAB Prov: ELINOR CHAHAL 01/26/23 Hydrocodone/Acetaminophen (Hydrocodone-Acetamin 5-325 mg) 5 Mg-325 Mg Tablet 1 TAB PO Q4H PRN for PAIN-MODERATE (5-7), #8 TAB Prov: ELINOR CHAHAL 01/26/23 ATTENDING PHYSICIAN NOTE: I was physically present as attending physician in the emergency department duri ng the care of this patient, but I was not directly involved in the decision making or delivery of care for this patient. (LINDSAY MOREL MD) ELINOR CHAHAL Jan 26, 2023 15:51 LINDSAY MOREL MD Jan 27, 2023 09:24
[2023-01-26 16:02] LABS: BASOPHILS % (AUTO) 1 % (0-10); EOSINOPHILS # (AUTO) 0.3 10^3/uL (0.0-0.3); EOSINOPHILS % (AUTO) 3 % (0-10); HEMATOCRIT 38 % (35-52); HEMOGLOBIN 12.4 g/dL (11.5-16.0); LYMPHOCYTES # (AUTO) 2.6 X 10^3 (1.0-4.0); LYMPHOCYTES % (AUTO) 29 % (12-44); MEAN CORPUSCULAR HEMOGLOBIN 28 pg (25-34); MEAN CORPUSCULAR HGB CONC 32 g/dL (32-36); MEAN CORPUSCULAR VOLUME 86 fL (80-99); MEAN PLATELET VOLUME 9.7 fL (9.0-12.2); MONOCYTES # (AUTO) 0.7 X 10^3 (0.0-1.0); MONOCYTES % (AUTO) 8 % (0-12); NEUTROPHILS # (AUTO) 5.3 X 10^3 (1.8-7.8); NEUTROPHILS % (AUTO) 59 % (42-75); PLATELET COUNT 458 10^3/uL (130-400); WHITE BLOOD COUNT 8.9 10^3/uL (4.3-11.0)
[2023-01-26 16:04] LABS: BILIRUBIN,URINE NEGATIVE (NEGATIVE); CLARITY,URINE CLEAR; COLOR,URINE YELLOW; GLUCOSE, URINE (UA) NEGATIVE (NEGATIVE); KETONES,URINE NEGATIVE (NEGATIVE); LEUKOCYTE ESTERASE ,URINE NEGATIVE (NEGATIVE); NITRITE,URINE NEGATIVE (NEGATIVE); PH,URINE 6.5 (5-9); PROTEIN,URINE NEGATIVE (NEGATIVE)
[2023-01-26 16:13] LABS: TOTAL PROTEIN 7.5 GM/DL (6.4-8.2)
[2023-01-26 16:15] LABS: BILIRUBIN,TOTAL 0.2 MG/DL (0.1-1.0)
[2023-01-26 16:16] LABS: CREATININE SERUM 0.95 MG/DL (0.60-1.30)
[2023-01-26] MEDS ORDERED: fentaNYL INJ 100 MCG/2 ML AMP IVP STA ×2 (16:21→18:23)
[2023-01-26 16:23] LABS: AMORPHOUS SEDIMENT,UR FEW AMOR URATES /LPF; BACTERIA,URINE MODERATE /HPF; SQUAMOUS EPITHELIAL CELL,UR >50 /HPF; WBC,URINE RARE /HPF
--- NOTE | 2023-01-26 17:19 | Diagnostic Imaging Report ---
CLINICAL INDICATION: Patient with right lower quadrant abdominal pain. EXAM: Transabdominal and transvaginal ultrasound of the pelvis. COMPARISON: Pelvic ultrasound dated 01/09/2023. FINDINGS: The uterus has normal echogenicity and echotexture with normal shape and configuration. The uterus measures 8.3 cm x 4.0 cm x 4.4 cm. The uterus is anteverted. The endometrial stripe measures 1.9 mm. Previously, the endometrial stripe measured 11 mm. There is a 1.7 cm x 1.8 cm x 1.4 cm cystic structure within the right ovary, seen only on the transvaginal ultrasound exam. Otherwise, the right ovary demonstrates normal configuration and echogenicity. The right ovary also has normal color Doppler flow and spectral Doppler waveform. There is no evidence of right ovarian torsion. The right ovary measures 2.8 cm x 1.9 cm x 2.2 cm. There was no cyst mentioned on the prior study involving the right ovary. The left ovary is obscured by overlying bowel gas and unable to be evaluated. Of note, the left ovary was also obscured on the prior study. There is minimal free fluid in the pelvis. IMPRESSION: 1: There is significantly thickened endometrium which is 1.9 cm. Previously, the endometrial stripe measured 11 mm. There is no measurable mass seen. Follow-up pelvic ultrasound in 6-8 weeks is suggested to evaluate for interval change. 2: There is a right ovarian cyst. 3: The left ovary is obscured by overlying bowel gas and unable to be evaluated. Dictated by: Dictated on workstation # [id number]
[2023-01-26] MEDS ORDERED: morphine INJ 10 MG/ML 1ML (SYR OR VIAL) IVP ONE (17:45)
[2023-01-26] MEDS ORDERED: NS 100 ML (IVPB) BAG IV ONE (18:15)
[2023-01-26] MEDS ORDERED: IOHEXOL 350 MG/ML 100 ML (OMNIPAQUE 350) VIAL IV ONE (18:15)
[2023-01-26] MEDS ORDERED: HOLD METFORMIN - RECEIVED CONTRAST 20 ML VIAL IV SCH (18:15)
--- NOTE | 2023-01-26 18:18 | Diagnostic Imaging Report ---
EXAMINATION: CT abdomen and pelvis with intravenous contrast. TECHNIQUE: Multiple contiguous axial images were obtained through the abdomen and pelvis after the uneventful administration of intravenous contrast. All CT scans use one or more of the following dose optimizing techniques: automated exposure control, MA and/or KvP adjustment based on patient size and exam type or iterative reconstruction. HISTORY: Right lower quadrant. COMPARISON: 01/09/2023 FINDINGS: Limited views of the lower thorax are unremarkable. The liver is normal without focal lesion. There is no biliary ductal dilation. Gallbladder is absent. Pancreas is normal. Spleen is normal. Adrenal glands are normal. The kidneys are normal. There is no hydronephrosis. Urinary bladder is normal. Bowel is normal in caliber without obstruction or inflammation. The appendix is normal. No free fluid or air. No abdominal or pelvic lymphadenopathy. Aorta is normal in caliber without aneurysm. There is no suspicious osseus lesion. IMPRESSION: No acute abnormality in the abdomen or pelvis. Dictated by: Dictated on workstation # [id number]
[2023-01-26] MEDS ORDERED: ACHD5005 PO (18:25)
[2023-01-26] MEDS ORDERED: METR-145 PO (18:27)
[2023-01-26] MEDS ORDERED: ACETAMINOPHEN 325 MG TABLET PO ONE (18:30)
[2023-01-26] MEDS ORDERED: ONDANSETRON 4 MG/2 ML (SDV) Z0FRAN IVP ONE (18:30)
[2023-01-26] MEDS ORDERED: HYDROcodone/APAP 5 MG/325 MG (LORTAB) TAB PO ONE (18:45)
[2023-01-26 19:00] VITALS: BP 129/80
== END 2023-01-26 19:00 | disposition home or self-care (01) ==
LOC: EDUNIT# 14:57 → ER 14:59
DX: N83.201 Unspecified ovarian cyst, right side (principal); F17.290 Nicotine dependence, other tobacco product, uncomplicated
CPT/HCPCS: 36415; 74177; 76830; 76856; 80053; 81000; 83690; 85025; 87210; 87491; 87591; 93005

== ENCOUNTER 2023-01-28 23:52 | Emergency (ER) | payer SELFPAY ==
[~2023-01-28] VITALS: Ht 157 cm; Wt 133.0 kg
[~2023-01-28 23:52] MED LIST changes: +METR-145 PO
[2023-01-29 00:49] LABS: BILIRUBIN,URINE NEGATIVE (NEGATIVE); CLARITY,URINE CLOUDY; COLOR,URINE YELLOW; GLUCOSE, URINE (UA) NEGATIVE (NEGATIVE); KETONES,URINE TRACE (NEGATIVE); LEUKOCYTE ESTERASE ,URINE NEGATIVE (NEGATIVE); NITRITE,URINE NEGATIVE (NEGATIVE); PROTEIN,URINE NEGATIVE (NEGATIVE)
[2023-01-29 00:55] LABS: BACTERIA,URINE LARGE /HPF; SQUAMOUS EPITHELIAL CELL,UR >50 /HPF; URINE OTHER CLUE CELLS PRESENT /HPF
[2023-01-29 01:01] LABS: AMPHETAMINE SCREEN, URINE NEGATIVE (NEGATIVE); BARBITURATE SCREEN URINE NEGATIVE (NEGATIVE); BENZODIAZEPINES SCREEN URINE NEGATIVE (NEGATIVE); CANNABINOID SCREEN, URINE NEGATIVE (NEGATIVE); COCAINE SCREEN URINE NEGATIVE (NEGATIVE); HCG,QUALITATIVE URINE NEGATIVE (NEGATIVE); METHADONE STAT NEGATIVE (NEGATIVE); OPIATE SCREEN URINE POSITIVE (NEGATIVE); OXYCODONE STAT NEGATIVE (NEGATIVE); PROPOXYPHENE STAT NEGATIVE (NEGATIVE); TRICYCLIC ANTIDEPRESSANTS SCRE POSITIVE (NEGATIVE)
[2023-01-29] MEDS ORDERED: PHEN-640 PO (01:03)
[2023-01-29] MEDS ORDERED: NITR-65 PO (01:03)
--- NOTE | 2023-01-29 01:04 | ED Abdominal Pain ---
General Chief Complaint: Abdominal/GI Problems Stated Complaint: LOWER ABD/BACK PAIN Nursing Triage Note: LOWER ABDOMINAL PAIN RADIATING TO BACK. RIGHT OVARIAN CYST. 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 Source of Information: Patient, Old Records History of Present Illness Date Seen by Provider: Jan 29, 2023 Time Seen by Provider: 00:10 Initial Comments PT ARRIVES VIA POV FROM HOME PT C/O ONGOING LOWER ABDOMINAL PAIN PAIN IS CONSTANT, VARIES IN INTENSITY. PAIN HAS MOSTLY BEEN IN RLQ SHE STATES TODAY, SHE HAD A SHARP SHOOTING PAIN ALL ACROSS HER LOWER ABDOMEN AND ALL AROUND INTO HER LOWER BACK--ALL OVER HER LOWER ABDOMEN AND LOWER BACK. NO NAUSEA/VOMITING/DIARRHEA/CONSTIPATION NO URINARY SYMPTOMS NO VAGINAL BLEEDING OR DISCHARGE NO FEVER SHE TOOK 1 HYDROCODONE "REAL EARLY THIS MORNING" TOOK TYLENOL OR MOTRIN AROUND 10 AM TOOK A "MUSCLE RELAXANT" "REAL EARLY THIS MORNING" SHE HAS NOT TAKEN ANYTHING FOR PAIN SINCE THIS MORNING. SHE HAS HAD 7 VISITS IN 2022, AND 6 VISITS HAVE BEEN SINCE 01/09/23--ALL FOR THIS EXACT SAME COMPLAINT OF LOWER ABDOMINAL PAIN SHE HAS HAD [address] UL[address]OUN[address] SCANS OF ABDOMEN/PELVIS. ULTRASOUND AND CT SCAN DONE 01/09/23, WERE ESSENTIALLY NORMAL CT SCAN DONE 01/26/23 WAS ESSENTIALLY NORMAL. PELVIC ULTRASOUND ON 01/26/23 SHOWED THICKENED ENDOMETRIUM AND 1.8 X 1.7 X 1.4 CM RIGHT OVARIAN CYST, WITHOUT SIGNS OF TORSION OR RUPTURE. PT HAS NOT ATTEMPTED TO FOLLOW UP WITH [facility] SHE WAS REFERRED TO DR. 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 LABS HAVE ALL BEEN UNREMARKABLE LMP 01/03/23. NORMAL. 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 PCP: MENA--HAS ONLY GONE TO WALK IN CLINIC--HAS NEVER ATTEMPTED TO ACTUALLY MAKE AN APPOINTMENT FOR ROUTINE MEDICAL CARE. Allergies and Home Medications Allergies Coded Allergies: ketorolac (Verified Allergy, Unknown, 12/15/22) Patient Home Medication List Cyclobenzaprine HCl (Cyclobenzaprine HCl) 10 Mg Tablet, 10 MG PO Q8H PRN for SPASMS Prescribed by: HALIMA RODRIGUEZ on 01/09/232208 Cyclobenzaprine HCl (Cyclobenzaprine HCl) 10 Mg Tablet, 10 MG PO TID Prescribed by: PB AVALOS on 01/16/232139 Escitalopram Oxalate (Lexapro) 20 Mg Tablet, 20 MG PO DAILY, (Reported) Entered as Reported by: INGA NIELSON on 02/13/18 135 Hydrocodone Bit/Acetaminophen (HYDROcodone/APAP 5 MG/325 MG TAB) 1 Tab Tab, 1 TAB PO Q6H PRN for PAIN-MODERATE (5-7) Prescribed by: Delfino Lehman on 12/15/22 175 Hydrocodone/Acetaminophen (Hydrocodone-Acetamin 5-325 mg) 5 Mg-325 Mg Tablet, 1 TAB PO Q4H PRN for PAIN-MODERATE (5-7) Prescribed by: PB AVALOS on 01/16/232139 Hydrocodone/Acetaminophen (Hydrocodone-Acetamin 5-325 mg) 5 Mg-325 Mg Tablet, 1 TAB PO Q4H PRN for PAIN-MODERATE (5-7) Prescribed by: PB AVALOS on 01/26/23 182 Medroxyprogesterone Acetate (Depo-Subq Provera 104) 104 Mg/0.65 Ml Syringe, 104 MG SQ Q 3MO, (Reported) Entered as Reported by: INGA NIELSON on 02/13/18 135 Metronidazole (Metronidazole) 500 Mg Tablet, 500 MG PO BID Prescribed by: PB AVALOS on 01/26/23 182 Morphine Sulfate (Morphine Sulfate IR Tablet) 15 Mg Tablet, 15 MG PO TID PRN for PAIN-SEVERE (8-10) Prescribed by: MEGGAN DEAL on 08/28/20 1536 Naproxen (Naproxen) 500 Mg Tablet.dr, 500 MG PO BID Prescribed by: HALIMA RODRIGUEZ on 01/09/232208 Nitrofurantoin Monohyd/M-Cryst (Macrobid 100 mg Capsule) 100 Mg Capsule, 1 TAB PO BID Prescribed by: HALIMA RODRIGUEZ on 01/29/23 0103 Phenazopyridine HCl (Pyridium) 200 Mg Tablet, 1 TAB PO TID Prescribed by: HALIMA RODRIGUEZ on 01/29/23 0103 [Propranolol] , (Reported) Entered as Reported by: AJ ZARCO on 08/28/201551 [Seroquel] , (Reported) Entered as Reported by: AJ ZARCO on 08/28/201551 Review of Systems Review of Systems Constitutional: no symptoms reported Respiratory: No Symptoms Reported Cardiovascular: No Symptoms Reported Gastrointestinal: See HPI, Abdominal Pain; Denies Constipated, Denies Diarrhea, Denies Nausea, Denies Vomiting Genitourinary: No Symptoms Reported Musculoskeletal: see HPI, back pain Skin: no symptoms reported Psychiatric/Neurological: No Symptoms Reported Endocrine: No Symptoms Reported Hematologic/Lymphatic: No Symptoms Reported Past Yzihesr-Ubpjpw-Aqrcwe Hx Patient Social History Tobacco Use?: Yes Tobacco type used: Cigarettes Smoking Status: Current Everyday Smoker Substance use?: No Alcohol Use?: Yes Alcohol Frequency: Once in a while Pt feels they are or have been: No Immunizations Up To Date Tetanus Booster (TDap): Less than 5yrs PED Vaccines UTD: Yes First/Initial COVID19 Vaccinat: NA Second COVID19 Vaccination [place]: DENIES Third COVID19 Vaccination Date: DENIES Seasonal Allergies Seasonal Allergies: No Past Medical History Surgery/Hospitalization HX: ANXIETY, RIGHT OVARIAN CYST, GERD, DEPRESSION C SECT, JACOB Surgeries: Yes ( X 1; CHOLECYSTECTOMY) Section, Gallbladder Respiratory: No Cardiac: No Neurological: No : No Last Menstrual Period: Jan 03, 2023 Reproductive Disorders: No Female Reproductive Disorders: Denies Sexually Transmitted Disease: No HIV/AIDS: No Genitourinary: No Gastrointestinal: Yes (S/P JACOB) Gastroesophageal Reflux, Gall Bladder Disease Musculoskeletal: No Endocrine: No HEENT: No Loss of Vision: Bilateral Hearing Impairment: Denies Cancer: No Psychosocial: Yes Anxiety, Depression Integumentary: No Blood Disorders: No Adverse Reaction/Blood Tranf: No (N/A) Family Medical History Cardiovascular disease 19 FATHER Hypertension 19 FATHER 19 MOTHER Heart Disease, Hypertension Physical Exam Vital Signs Vital Signs - First Documented 01/28/23 23:59 Temp 36.6 Pulse 108 Resp 18 B/P (MAP) 119/96 (104) Pulse Ox 97 O2 Delivery Room Air Capillary Refill : Less Than 3 Seconds Height/Weight/BMI Height: 5'2.00" Weight: 275lbs. 0.0oz. 124.743193au; 53.00 BMI Method:Stated Progress/Results/Core Measures Results/Orders Lab Results Laboratory Tests Test 01/29/23 00:35 Range/Units Urine Color YELLOW Urine Clarity CLOUDY Urine pH 6.0 5-9 Urine Specific [place] >=1.030 1.016-1.022 Urine Protein NEGATIVE NEGATIVE Urine Glucose (UA) NEGATIVE NEGATIVE Urine Ketones TRACE H NEGATIVE Urine Nitrite NEGATIVE NEGATIVE Urine Bilirubin NEGATIVE NEGATIVE Urine Urobilinogen 0.2 < = 1.0 MG/DL Urine Leukocyte Esterase NEGATIVE NEGATIVE Urine RBC (Auto) NEGATIVE NEGATIVE Urine RBC NONE /HPF Urine WBC NONE /HPF Urine Squamous Epithelial Cells >50 H /HPF Urine Crystals NONE /LPF Urine Bacteria LARGE H /HPF Urine Casts NONE /LPF Urine Mucus NEGATIVE /LPF Urine Other CLUE CELLS PRESENT /HPF Urine Culture Indicated NO Urine Test NEGATIVE NEGATIVE Urine Opiates Screen POSITIVE H NEGATIVE Urine Oxycodone Screen NEGATIVE NEGATIVE Urine Methadone Screen NEGATIVE NEGATIVE Urine Propoxyphene Screen NEGATIVE NEGATIVE Urine Barbiturates Screen NEGATIVE NEGATIVE Ur Tricyclic Antidepressants Screen POSITIVE H NEGATIVE Urine Phencyclidine Screen NEGATIVE NEGATIVE Urine Amphetamines Screen NEGATIVE NEGATIVE Urine Methamphetamines Screen NEGATIVE NEGATIVE Urine Benzodiazepines Screen NEGATIVE NEGATIVE Urine Cocaine Screen NEGATIVE NEGATIVE Urine Cannabinoids Screen NEGATIVE NEGATIVE My Orders Orders - HALIMA RODRIGUEZ DO Drug Screen Stat (Urine) (01/29/23 00:24) Hcg,Qualitative Urine (01/29/23 00:24) Ua Culture If Indicated (01/29/23 00:24) Nitrofurantoin Capsule,Macro (Macrobid C (01/29/23 01:15) Phenazopyridine Tablet (Pyridium Tablet) (01/29/23 01:15) Medications Given in ED Current Medications Medications Dose Ordered Sig/Tiffanie Route Start Time Stop Time Status Last Admin Dose Admin Nitrofurantoin Macrocrystals 100 mg ONCE ONCE PO 01/29/23 01:15 01/29/23 01:14 DC 01/29/23 01:12 100 MG Phenazopyridine HCl 200 mg ONCE ONCE PO 01/29/23 01:15 01/29/23 01:14 DC 01/29/23 01:12 200 MG Vital Signs/I&O 01/28/23 01/29/23 23:59 01:13 Temp 36.6 36.6 Pulse 108 78 Resp 18 18 B/P (MAP) 119/96 (104) 114/85 Pulse Ox 97 99 O2 Delivery Room Air Room Air Blood Pressure Mean: 104 Departure Impression Primary Impression: Urinary tract infection Additional Impressions: Pelvic pain Right ovarian cyst Disposition: HOME, SELF-CARE Condition: Stable Departure-Patient Inst. Decision time for Depature: 01:02 Referrals: [facility] (PCP/Family) Primary Care Physician Patient Instructions: Pelvic Pain ED, Ovarian Cyst ED, Urinary Tract Infection, Adult (DC) Add. Discharge Instructions: CONTINUE YOUR CURRENT MEDICATIONS PRESCRIBED LOTS OF CLEAR LIQUIDS--NO COFFEE, POP OR TEA FOLLOW UP WITH [facility] AND DR. MCDOWELL PREVIOUSLY INSTRUCTED All discharge instructions reviewed with patient and/or family. Voiced under standing. Scripts Phenazopyridine HCl (Pyridium) 200 Mg Tablet 1 TAB PO TID, #15 TAB Prov: HALIMA RODRIGUEZ DO 01/29/23 Nitrofurantoin Monohyd/M-Cryst (Macrobid 100 mg Capsule) 100 Mg Capsule 1 TAB PO BID, #20 CAP Prov: HALIMA RODRIGUEZ DO 01/29/23 HALIMA RODRIGUEZ DO Jan 29, 2023 01:04
[2023-01-29 01:13] VITALS: BP 114/85
[2023-01-29] MEDS ORDERED: NITROFURANTOIN 100 MG (MACROBID) CAPSULE PO ONE (01:15)
[2023-01-29] MEDS ORDERED: PHENAZOPYRIDINE 100 MG (PYRIDIUM) TABLET PO ONE (01:15)
== END 2023-01-29 01:14 | disposition home or self-care (01) ==
LOC: EDUNIT# 23:52 → ER 23:55
DX: N39.0 Urinary tract infection, site not specified (principal); N83.201 Unspecified ovarian cyst, right side; F17.210 Nicotine dependence, cigarettes, uncomplicated; Z28.310 Unvaccinated for COVID-19; Z87.19 Personal history of other diseases of the digestive system; Z90.49 Acquired absence of other specified parts of digestive tract
CPT/HCPCS: 80306; 81000; 84703; 99283

== ENCOUNTER 2023-02-12 17:30 | Emergency (ER) | payer SELFPAY ==
[~2023-02-12] VITALS: Ht 157 cm; Wt 131.5 kg
[~2023-02-12 17:30] MED LIST changes: +NITR-65 PO; +PHEN-640 PO
[2023-02-12 17:52] LABS: BILIRUBIN,URINE NEGATIVE (NEGATIVE); CLARITY,URINE TURBID; COLOR,URINE YELLOW; GLUCOSE, URINE (UA) NEGATIVE (NEGATIVE); KETONES,URINE NEGATIVE (NEGATIVE); LEUKOCYTE ESTERASE ,URINE NEGATIVE (NEGATIVE); NITRITE,URINE NEGATIVE (NEGATIVE); PH,URINE 5.5 (5-9); PROTEIN,URINE NEGATIVE (NEGATIVE)
[2023-02-12] MEDS ORDERED: ONDANSETRON 4 MG/2 ML (SDV) Z0FRAN IVP ONE (18:00)
[2023-02-12 18:01] LABS: AMORPHOUS SEDIMENT,UR FEW AMOR URATES /LPF; BACTERIA,URINE FEW /HPF; WBC,URINE 0-2 /HPF
--- NOTE | 2023-02-12 18:10 | ED Abdominal Pain ---
General Chief Complaint: Abdominal/GI Problems Stated Complaint: LOWER ABDOMINAL PAIN Nursing Triage Note: pt presents to ed with complaints of r lower abdominal pain since sunday night. pt reports she has taken naproxen and muscle relaxers at home with no relief. pt states reports she was sitting at her desk at work when the pain got sig worse. pt reports nausea but no v/d. Source of Information: Patient Exam Limitations: No Limitations History of Present Illness Date Seen by Provider: Feb 12, 2023 Time Seen by Provider: 18:08 Initial Comments Patient is a 27-year-old female presents ED with right lower quad abdominal pain. Pain started on Sunday described as sharp without radiation. Pain has been constant. History of similar pain with similar visits over the past few months. She is scheduled to follow-up with Dr. Osborne next month. She has appointment with her primary care physician next month. She has been taken Tylenol and ibuprofen [id number] for the pain without much improvement. Denies of any urinary symptoms, vaginal bleeding, vaginal discharge, fever, chills, chest pain, cough or shortness of breath. Similar type pain today. She did vomited twice today. No diarrhea. Allergies and Home Medications Allergies Coded Allergies: ketorolac (Verified Allergy, Unknown, 12/15/22) Patient Home Medication List Home Medication List Reviewed: Yes Cyclobenzaprine HCl (Cyclobenzaprine HCl) 10 Mg Tablet, 10 MG PO Q8H PRN for SPASMS Prescribed by: HALIMA RODRIGUEZ on 01/09/232208 Cyclobenzaprine HCl (Cyclobenzaprine HCl) 10 Mg Tablet, 10 MG PO TID Prescribed by: PB AVALOS on 01/16/23 214 Escitalopram Oxalate (Lexapro) 20 Mg Tablet, 20 MG PO DAILY, (Reported) Entered as Reported by: INGA NIELSON on 02/13/18 1354 Hydrocodone Bit/Acetaminophen (HYDROcodone/APAP 5 MG/325 MG TAB) 1 Tab Tab, 1 TAB PO Q6H PRN for PAIN-MODERATE (5-7) Prescribed by: Delfino Lehman on 12/15/22 1754 Hydrocodone/Acetaminophen (Hydrocodone-Acetamin 5-325 mg) 5 Mg-325 Mg Tablet, 1 TAB PO Q4H PRN for PAIN-MODERATE (5-7) Prescribed by: PB AVALOS on 01/16/23 2140 Hydrocodone/Acetaminophen (Hydrocodone-Acetamin 5-325 mg) 5 Mg-325 Mg Tablet, 1 TAB PO Q4H PRN for PAIN-MODERATE (5-7) Prescribed by: PB AVALOS on 01/26/23 182 Medroxyprogesterone Acetate (Depo-Subq Provera 104) 104 Mg/0.65 Ml Syringe, 104 MG SQ Q 3MO, (Reported) Entered as Reported by: INGA NIELSON on 02/13/18 1354 Metronidazole (Metronidazole) 500 Mg Tablet, 500 MG PO BID Prescribed by: PB AVALOS on 01/26/23 182 Morphine Sulfate (Morphine Sulfate IR Tablet) 15 Mg Tablet, 15 MG PO TID PRN for PAIN-SEVERE (8-10) Prescribed by: MEGGAN DEAL on 08/28/20 1536 Naproxen (Naproxen) 500 Mg Tablet.dr, 500 MG PO BID Prescribed by: HALIMA RODRIGUEZ on 01/09/232208 Nitrofurantoin Monohyd/M-Cryst (Macrobid 100 mg Capsule) 100 Mg Capsule, 1 TAB PO BID Prescribed by: HALIMA RODRIGUEZ on 01/29/23 010 Phenazopyridine HCl (Pyridium) 200 Mg Tablet, 1 TAB PO TID Prescribed by: HALIMA RODRIGUEZ on 01/29/23102 [Propranolol] , (Reported) Entered as Reported by: AJ ZARCO on 08/28/20 155 [Seroquel] , (Reported) Entered as Reported by: AJ ZARCO on 08/28/201551 Review of Systems Review of Systems Constitutional: No chills, No diaphoresis, No malaise, No weakness EENTM: No Double Vision, No Eye Pain, No Mouth Pain, No Mouth Swelling, No Throat Pain, No Throat Swelling Respiratory: Denies Cough Cardiovascular: Denies Chest Pain Gastrointestinal: Abdominal Pain; Denies Diarrhea; Nausea, Vomiting Genitourinary: Denies Burning, Denies Drainage, Denies Frequency Musculoskeletal: No back pain, No joint pain Skin: No change in color, No change in hair/nails All Other Systems Reviewed Negative Unless Noted: Yes Past Kqxxbms-Wxtjka-Aoqjgo Hx Patient Social History Tobacco Use?: No E-Cig or Vaping type used: Nicotine Use of E-Cig and/or Vaping Ricardo: Current Everyday User Substance use?: No Alcohol Use?: Yes Alcohol Frequency: Once in a while Immunizations Up To Date Tetanus Booster (TDap): Less than 5yrs PED Vaccines UTD: Yes First/Initial COVID19 Vaccinat: NA Second COVID19 Vaccination [place]: NA Third COVID19 Vaccination Date: NA Seasonal Allergies Seasonal Allergies: No Past Medical History Surgery/Hospitalization HX: ANXIETY, RIGHT OVARIAN CYST, GERD, DEPRESSION C SECT, JACOB Surgeries: Yes ( X 1; CHOLECYSTECTOMY) Section, Gallbladder Respiratory: No Cardiac: No Neurological: No Last Menstrual Period: Feb 01, 2023 Reproductive Disorders: No Female Reproductive Disorders: Denies Sexually Transmitted Disease: No HIV/AIDS: No Genitourinary: No Gastrointestinal: Yes (S/P JACOB) Gastroesophageal Reflux, Gall Bladder Disease Musculoskeletal: No Endocrine: No HEENT: No Loss of Vision: Bilateral Hearing Impairment: Denies Cancer: No Psychosocial: Yes Anxiety, Depression Integumentary: No Blood Disorders: No Adverse Reaction/Blood Tranf: No (N/A) Family Medical History Cardiovascular disease 19 FATHER Hypertension 19 FATHER 19 MOTHER Heart Disease, Hypertension Physical Exam Vital Signs Vital Signs - First Documented 02/12/23 02/12/23 17:36 19:21 Temp 36.5 Pulse 62 Resp 18 B/P (MAP) 157/120 (132) Pulse Ox 99 O2 Delivery Room Air Capillary Refill : Less Than 3 Seconds Height/Weight/BMI Height: 5'2.00" Weight: 275lbs. 0.0oz. [id number]; 53.00 BMI Method:Stated General Appearance: WD/WN, no apparent distress HEENT: PERRL/EOMI, normal ENT inspection, TMs normal, pharynx normal Neck: non-tender, full range of motion, supple Respiratory: chest non-tender, lungs clear, normal breath sounds, no respirator y distress, no accessory muscle use Cardiovascular: regular rate, rhythm, no edema, no gallop, no JVD Gastrointestinal: normal bowel sounds, soft, no organomegaly, tenderness (Right lower quadrant tenderness) Extremities: normal range of motion, non-tender, normal inspection, no pedal edema Back: normal inspection, no CVA tenderness 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, no motor/sensory deficits, alert, normal mood/affect, oriented x 3 Skin: normal color, warm/dry Progress/Results/Core Measures Results/Orders Lab Results Laboratory Tests Test 02/12/23 17:46 02/12/23 18:00 Range/Units Urine Color YELLOW Urine Clarity TURBID Urine pH 5.5 5-9 Urine Specific [place] >=1.030 1.016-1.022 Urine Protein NEGATIVE NEGATIVE Urine Glucose (UA) NEGATIVE NEGATIVE Urine Ketones NEGATIVE NEGATIVE Urine Nitrite NEGATIVE NEGATIVE Urine Bilirubin NEGATIVE NEGATIVE Urine Urobilinogen 0.2 < = 1.0 MG/DL Urine Leukocyte Esterase NEGATIVE NEGATIVE Urine RBC (Auto) NEGATIVE NEGATIVE Urine RBC NONE /HPF Urine WBC 0-2 /HPF Urine Squamous Epithelial Cells 10-25 H /HPF Urine Crystals PRESENT H /LPF Urine Amorphous Sediment FEW JAIME URATES H /LPF Urine Bacteria FEW H /HPF Urine Casts NONE /LPF Urine Mucus NEGATIVE /LPF Urine Culture Indicated YES White Blood Count 11.1 H 4.3-11.0 10^3/uL Red Blood Count 4.28 3.80-5.11 10^6/uL Hemoglobin 12.0 11.5-16.0 g/dL Hematocrit 37 35-52 % Mean Corpuscular Volume 87 80-99 fL Mean Corpuscular Hemoglobin 28 25-34 pg Mean Corpuscular Hemoglobin Concent 32 32-36 g/dL Red Cell Distribution Width 13.0 10.0-14.5 % Platelet Count 478 H 130-400 10^3/uL Mean Platelet Volume 9.7 9.0-12.2 fL Immature Granulocyte % (Auto) 0 % Neutrophils (%) (Auto) 59 42-75 % Lymphocytes (%) (Auto) 30 12-44 % Monocytes (%) (Auto) 6 0-12 % Eosinophils (%) (Auto) 3 0-10 % Basophils (%) (Auto) 1 0-10 % Neutrophils # (Auto) 6.6 1.8-7.8 10^3/uL Lymphocytes # (Auto) 3.3 1.0-4.0 10^3/uL Monocytes # (Auto) 0.7 0.0-1.0 10^3/uL Eosinophils # (Auto) 0.4 H 0.0-0.3 10^3/uL Basophils # (Auto) 0.1 0.0-0.1 10^3/uL Immature Granulocyte # (Auto) 0.0 0.0-0.1 10^3/uL Sodium Level 139 135-145 MMOL/L Potassium Level 3.7 3.6-5.0 MMOL/L Chloride Level 106 98-107 MMOL/L Carbon Dioxide Level 20 L 21-32 MMOL/L Anion Gap 13 5-14 MMOL/L Blood Urea Nitrogen 11 7-18 MG/DL Creatinine 0.91 0.60-1.30 MG/DL Estimat Glomerular Filtration Rate 88 BUN/Creatinine Ratio 12 Glucose Level 100 70-105 MG/DL Calcium Level 9.1 8.5-10.1 MG/DL Corrected Calcium 8.9 8.5-10.1 MG/DL Total Bilirubin 0.3 0.1-1.0 MG/DL Aspartate Amino Transf (AST/SGOT) 11 5-34 U/L Alanine Aminotransferase (ALT/SGPT) 13 0-55 U/L Alkaline Phosphatase 64 40-136 U/L Total Protein 7.6 6.4-8.2 GM/DL Albumin 4.2 3.2-4.5 GM/DL My Orders Orders - ELINOR CHAHAL Ua Culture If Indicated (02/12/23 17:41) Cbc With Automated Diff (02/12/23 17:50) Comprehensive Metabolic Panel (02/12/23 17:50) Ondansetron Injection (Zofran Injectio (02/12/23 18:00) Urine Culture (02/12/23 17:46) Fentanyl Inj (Sublimaze Injection) (02/12/23 18:18) Morphine Injection (Morphine Injection (02/12/23 19:00) Rx-Hydrocodone/Apap 5-325 Mg (Rx-Vicodin (02/12/23 19:15) Medications Given in ED Current Medications Medications Dose Ordered Sig/Tiffanie Route Start Time Stop Time Status Last Admin Dose Admin Acetaminophen/ Hydrocodone Bitart 1 ea ONCE ONCE PO 02/12/23 19:15 02/12/23 19:16 DC 02/12/23 19:20 1 EA Morphine Sulfate 4 mg ONCE ONCE IVP 02/12/23 19:00 02/12/23 19:02 DC 02/12/23 19:05 4 MG Ondansetron HCl 4 mg ONCE ONCE IVP 02/12/23 18:00 02/12/23 18:01 DC 02/12/23 18:04 4 MG Vital Signs/I&O 02/12/23 02/12/23 02/12/23 17:36 19:08 19:21 Temp 36.5 Pulse 62 94 78 Resp 18 14 14 B/P (MAP) 157/120 (132) 126/71 (89) 122/76 Pulse Ox 99 94 96 O2 Delivery Room Air Blood Pressure Mean: 132 Departure Communication (PCP) Reviewed previous ER visits, H&P, testing. Has been seen here multiple times for similar type pain. She has scheduled follow-up with her primary care physician here in a few weeks and gynecology for this continue right ovarian pain. Patient with similar type pain since Sunday. 2 episodes of vomiting today. Due to her current presentation CBC, CMP, urinalysis was ordered. Differential diagnosis of ovarian cyst, UTI, appendicitis. CMP BC, CMP unremarkable. Urinalysis was negative for infection. Patient was given 2 rounds of pain medication with improvement of pain. Zofran for nausea. No ajith dence of surgical abdomen with reassuring lab work and previous larger work-ups. Patient pain appears similar today. She does not appear in acute distress. Negative Rovsing and psoas sign. No urinary symptoms. Patient does not appear toxic or septic. Vital signs stable. Discussed with patient that her primary care physician should be continue monitoring this pain. This is typically something that we do not do in the ER. Discussed with patient that we will continue evaluating for any acute changes. she acknowledges Continue with anti-inflammatories at home. Follow-up with your primary care physician and gynecology. If any worsening symptoms such as increasing pain that is different, fever, vomiting to return back to ED. Impression Primary Impression: Abdominal pain Disposition: HOME, SELF-CARE Condition: Stable Departure-Patient Inst. Decision time for Depature: 19:16 Referrals: [facility] (PCP/Family) Primary Care Physician Patient Instructions: Ovarian Cyst ED Work/School Note: Work Release Form Date Seen in the Emergency Department: Feb 12, 2023 Return to Work: Feb 14, 2023 ELINOR CHAHAL Feb 12, 2023 18:10
[2023-02-12 18:15] LABS: BASOPHILS # (AUTO) 0.1 10^3/uL (0.0-0.1); BASOPHILS % (AUTO) 1 % (0-10); EOSINOPHILS # (AUTO) 0.4 10^3/uL (0.0-0.3); EOSINOPHILS % (AUTO) 3 % (0-10); HEMATOCRIT 37 % (35-52); LYMPHOCYTES # (AUTO) 3.3 10^3/uL (1.0-4.0); LYMPHOCYTES % (AUTO) 30 % (12-44); MEAN CORPUSCULAR HEMOGLOBIN 28 pg (25-34); MEAN CORPUSCULAR HGB CONC 32 g/dL (32-36); MEAN CORPUSCULAR VOLUME 87 fL (80-99); MEAN PLATELET VOLUME 9.7 fL (9.0-12.2); MONOCYTES # (AUTO) 0.7 10^3/uL (0.0-1.0); MONOCYTES % (AUTO) 6 % (0-12); NEUTROPHILS # (AUTO) 6.6 10^3/uL (1.8-7.8); NEUTROPHILS % (AUTO) 59 % (42-75); PLATELET COUNT 478 10^3/uL (130-400); WHITE BLOOD COUNT 11.1 10^3/uL (4.3-11.0)
[2023-02-12] MEDS ORDERED: fentaNYL INJ 100 MCG/2 ML AMP IVP STA (18:18)
[2023-02-12 18:26] LABS: ALBUMIN 4.2 GM/DL (3.2-4.5); POTASSIUM 3.7 MMOL/L (3.6-5.0)
[2023-02-12 18:27] LABS: CALCIUM 9.1 MG/DL (8.5-10.1)
[2023-02-12 18:29] LABS: TOTAL PROTEIN 7.6 GM/DL (6.4-8.2)
[2023-02-12 18:31] LABS: BILIRUBIN,TOTAL 0.3 MG/DL (0.1-1.0)
[2023-02-12 18:32] LABS: CREATININE SERUM 0.91 MG/DL (0.60-1.30)
[2023-02-12] MEDS ORDERED: morphine INJ 10 MG/ML 1ML (SYR OR VIAL) IVP ONE (19:00)
[2023-02-12 19:21] VITALS: BP 122/76
== END 2023-02-12 19:24 | disposition home or self-care (01) ==
LOC: EDUNIT# 17:30 → ER 17:32
DX: R10.31 Right lower quadrant pain (principal); R11.2 Nausea with vomiting, unspecified; F17.290 Nicotine dependence, other tobacco product, uncomplicated; Z90.49 Acquired absence of other specified parts of digestive tract; Z28.310 Unvaccinated for COVID-19
CPT/HCPCS: 36415; 80053; 81000; 85025; 87088

== ENCOUNTER 2023-03-05 20:48 | Emergency (ER) | payer OTHER ==
[~2023-03-05] VITALS: Ht 157 cm; Wt 136.0 kg
[2023-03-05] MEDS ORDERED: DICYCLOMINE 10 MG/ML (BENTYL) 2 ML AMP IM STA (21:31)
[2023-03-05 21:33] LABS: BILIRUBIN,URINE NEGATIVE (NEGATIVE); CLARITY,URINE CLEAR; COLOR,URINE YELLOW; GLUCOSE, URINE (UA) NEGATIVE (NEGATIVE); KETONES,URINE NEGATIVE (NEGATIVE); LEUKOCYTE ESTERASE ,URINE NEGATIVE (NEGATIVE); NITRITE,URINE NEGATIVE (NEGATIVE); PH,URINE 5.5 (5-9); PROTEIN,URINE NEGATIVE (NEGATIVE)
--- NOTE | 2023-03-05 21:37 | ED Abdominal Pain ---
General Chief Complaint: Abdominal/GI Problems Stated Complaint: ABDOMINAL PAIN Nursing Triage Note: pt presents to ED with c/o abdominal pain that began this afternoon and 1 episode of nausea/vomiting. pt had ovarian cyst rupture 2 weeks ago and states the pain is similar, although she only had one cyst on her scan. pt took oxycodone and a muscle relaxer 2 hours ago. Source of Information: Patient Exam Limitations: No Limitations (ELINOR CHAHAL) History of Present Illness Date Seen by Provider: Mar 05, 2023 Time Seen by Provider: 21:35 Initial Comments Patient is a 27-year-old female who presents ED with right lower quad abdominal pain. This pain started early this afternoon. Described as a sharp pain without radiation. Pain has been constant. She vomited once. She attempted to lay down and rest without much improvement. She took some nausea medication at home with a dose of oxycodone that she had from previous visits for the similar pain. She denies of any urinary symptoms, vaginal bleeding or on her current menstrual cycle. Denies chest pain, shortness of breath. Patient has been seen multiple visits here at [facility] for similar type pain as well as visits in [place]. (ELINOR CHAHAL) Allergies and Home Medications Allergies Coded Allergies: ketorolac (Verified Allergy, Unknown, 12/15/22) Patient Home Medication List Home Medication List Reviewed: Yes (ELINOR CHAHAL) Cyclobenzaprine HCl (Cyclobenzaprine HCl) 10 Mg Tablet, 10 MG PO Q8H PRN for SPASMS Prescribed by: HALIMA RODRIGUEZ on 01/09/232208 Cyclobenzaprine HCl (Cyclobenzaprine HCl) 10 Mg Tablet, 10 MG PO TID Prescribed by: PB AVALOS on 01/16/23 214 Escitalopram Oxalate (Lexapro) 20 Mg Tablet, 20 MG PO DAILY, (Reported) Entered as Reported by: INGA NIELSON on 02/13/18 1354 Hydrocodone Bit/Acetaminophen (HYDROcodone/APAP 5 MG/325 MG TAB) 1 Tab Tab, 1 TAB PO Q6H PRN for PAIN-MODERATE (5-7) Prescribed by: Delfino Lehman on 12/15/22 1754 Hydrocodone/Acetaminophen (Hydrocodone-Acetamin 5-325 mg) 5 Mg-325 Mg Tablet, 1 TAB PO Q4H PRN for PAIN-MODERATE (5-7) Prescribed by: PB AVALOS on 01/16/23 2140 Hydrocodone/Acetaminophen (Hydrocodone-Acetamin 5-325 mg) 5 Mg-325 Mg Tablet, 1 TAB PO Q4H PRN for PAIN-MODERATE (5-7) Prescribed by: PB AVALOS on 01/26/23 182 Medroxyprogesterone Acetate (Depo-Subq Provera 104) 104 Mg/0.65 Ml Syringe, 104 MG SQ Q 3MO, (Reported) Entered as Reported by: INGA NIELSON on 02/13/18 1354 Metronidazole (Metronidazole) 500 Mg Tablet, 500 MG PO BID Prescribed by: PB AVALOS on 01/26/23 182 Metronidazole (Metronidazole) 500 Mg Tablet, 500 MG PO BID Prescribed by: ELINOR GUERRERO on 02/20/23 0659 Morphine Sulfate (Morphine Sulfate IR Tablet) 15 Mg Tablet, 15 MG PO TID PRN for PAIN-SEVERE (8-10) Prescribed by: MEGGAN DEAL on 08/28/20 1536 Naproxen (Naproxen) 500 Mg Tablet.dr, 500 MG PO BID Prescribed by: HALIMA RODRIGUEZ on 01/09/232208 Nitrofurantoin Monohyd/M-Cryst (Macrobid 100 mg Capsule) 100 Mg Capsule, 1 TAB PO BID Prescribed by: HALIMA RODRIGUEZ on 01/29/23102 Phenazopyridine HCl (Pyridium) 200 Mg Tablet, 1 TAB PO TID Prescribed by: HALIMA RODRIGUEZ on 01/29/23102 [Propranolol] , (Reported) Entered as Reported by: AJ ZARCO on 08/28/201551 [Seroquel] , (Reported) Entered as Reported by: AJ ZARCO on 08/28/201551 Review of Systems Review of Systems Constitutional: No chills, No diaphoresis, No malaise, No weakness EENTM: No Blurred Vision, No Eye Pain Respiratory: Denies Cough, Denies Orthopnea Cardiovascular: Denies Chest Pain Gastrointestinal: Abdominal Pain; Denies Diarrhea; Nausea, Vomiting Genitourinary: Denies Burning, Denies Discharge, Denies Drainage, Denies Frequency Musculoskeletal: No back pain, No joint pain Skin: No change in color, No change in hair/nails (ELINOR CHAHAL) All Other Systems Reviewed Negative Unless Noted: Yes (EILNOR CHAHAL) Past Nigpzfv-Xscied-Fzpyog Hx Patient Social History Tobacco Use?: Yes Use of E-Cig and/or Vaping dev: Yes Substance use?: No Alcohol Use?: No Pt feels they are or have been: No (ELINOR CHAHAL) Immunizations Up To Date Tetanus Booster (TDap): Less than 5yrs PED Vaccines UTD: Yes Influenza Vaccine Up-to-Date: No; Not Current First/Initial COVID19 Vaccinat: NA Second COVID19 Vaccination [place]: NA Third COVID19 Vaccination Date: NA (ELINOR CHAHAL) Seasonal Allergies Seasonal Allergies: No (ELINOR CHAHAL) Past Medical History Surgery/Hospitalization HX: ANXIETY, RIGHT OVARIAN CYST, GERD, DEPRESSION C SECT, JACOB Surgeries: Yes ( X 1; CHOLECYSTECTOMY) Section, Gallbladder Respiratory: No Cardiac: No Neurological: No Reproductive Disorders: No Female Reproductive Disorders: Denies Sexually Transmitted Disease: No HIV/AIDS: No Genitourinary: No Gastrointestinal: Yes (S/P JACOB) Gastroesophageal Reflux, Gall Bladder Disease Musculoskeletal: No Endocrine: No HEENT: No Loss of Vision: Bilateral Hearing Impairment: Denies Cancer: No Psychosocial: Yes Anxiety, Depression Integumentary: No Blood Disorders: No Adverse Reaction/Blood Tranf: No (N/A) (ELINOR CHAHAL) Family Medical History Cardiovascular disease 19 FATHER Hypertension 19 FATHER 19 MOTHER Heart Disease, Hypertension (ELINOR CHAHAL) Physical Exam Vital Signs Vital Signs - First Documented 03/05/23 21:03 Temp 36.9 Pulse 106 Resp 20 B/P (MAP) 128/94 (105) Pulse Ox 97 O2 Delivery Room Air (MICHAELHALIMA K DO) Vital Signs Capillary Refill : (ELINOR CHAHAL) Height/Weight/BMI Height: 5'2.00" Weight: 275lbs. 0.0oz. 124.589248bh; 55.00 BMI Method:Stated General Appearance: WD/WN, no apparent distress HEENT: PERRL/EOMI, normal ENT inspection, TMs normal, pharynx normal Neck: non-tender, full range of motion, supple, normal inspection Respiratory: chest non-tender, lungs clear, normal breath sounds, no respiratory distress, no accessory muscle use Cardiovascular: regular rate, rhythm, no edema, no gallop, no JVD Gastrointestinal: normal bowel sounds, soft, no organomegaly, no pulsatile mass, tenderness (Right lower quadrant tenderness) Extremities: normal range of motion, non-tender, normal inspection, no pedal edema, no calf tenderness 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6 9.0-12.2 fL Immature Granulocyte % (Auto) 0 % Neutrophils (%) (Auto) 64 42-75 % Lymphocytes (%) (Auto) 26 12-44 % Monocytes (%) (Auto) 6 0-12 % Eosinophils (%) (Auto) 3 0-10 % Basophils (%) (Auto) 1 0-10 % Neutrophils # (Auto) 8.3 H 1.8-7.8 10^3/uL Lymphocytes # (Auto) 3.4 1.0-4.0 10^3/uL Monocytes # (Auto) 0.8 0.0-1.0 10^3/uL Eosinophils # (Auto) 0.4 H 0.0-0.3 10^3/uL Basophils # (Auto) 0.1 0.0-0.1 10^3/uL Immature Granulocyte # (Auto) 0.0 0.0-0.1 10^3/uL Percent Immature Platelet Fraction 3.5 0.0-7.6 % Urine Color YELLOW Urine Clarity CLEAR Urine pH 5.5 5-9 Urine Specific [place] 1.025 H 1.016-1.022 Urine Protein NEGATIVE NEGATIVE Urine Glucose (UA) NEGATIVE NEGATIVE Urine Ketones NEGATIVE NEGATIVE Urine Nitrite NEGATIVE NEGATIVE Urine Bilirubin NEGATIVE NEGATIVE Urine Urobilinogen 0.2 < = 1.0 MG/DL Urine Leukocyte Esterase NEGATIVE NEGATIVE Urine RBC (Auto) NEGATIVE NEGATIVE Urine RBC NONE /HPF Urine WBC 0-2 /HPF Urine Squamous Epithelial Cells 5-10 /HPF Urine Crystals NONE /LPF Urine Bacteria MODERATE H /HPF Urine Casts NONE /LPF Urine Mucus NEGATIVE /LPF Urine Culture Indicated YES Urine Test NEGATIVE NEGATIVE Sodium Level 141 135-145 MMOL/L Potassium Level 3.6 3.6-5.0 MMOL/L Chloride Level 108 H 98-107 MMOL/L Carbon Dioxide Level 21 21-32 MMOL/L Anion Gap 12 5-14 MMOL/L Blood Urea Nitrogen 13 7-18 MG/DL Creatinine 0.91 0.60-1.30 MG/DL Estimat Glomerular Filtration Rate 88 BUN/Creatinine Ratio 14 Glucose Level 122 H 70-105 MG/DL Calcium Level 9.1 8.5-10.1 MG/DL Corrected Calcium 9.3 8.5-10.1 MG/DL Total Bilirubin 0.2 0.1-1.0 MG/DL Aspartate Amino Transf (AST/SGOT) 7 5-34 U/L Alanine Aminotransferase (ALT/SGPT) 10 0-55 U/L Alkaline Phosphatase 70 40-136 U/L Total Protein 6.9 6.4-8.2 GM/DL Albumin 3.7 3.2-4.5 GM/DL (HALIMA RODRIGUEZ DO) Micro Results Microbiology 03/05/23 Urine Culture - Final, Complete Gram Pos Mixed Bacterial Xiomara (HALIMA RODRIGUEZ DO) Vital Signs/I&O 03/05/23 03/05/23 21:03 23:15 Temp 36.9 Pulse 106 100 Resp 20 20 B/P (MAP) 128/94 (105) 141/86 Pulse Ox 97 97 O2 Delivery Room Air Room Air (HALIMA RODRIGUEZ DO) Blood Pressure Mean: 105 Departure Communication (PCP) Reviewed previous ER visits, imaging, lab testing. Patient has been seen multiple times over the past two months for similar pain as well as [place] emergency department. She has had multiple work-ups including CT scans which were negative for appendicitis, obstruction, abscess. Transvaginal ultrasound performed on January 26 showed thickened endometrium which is 1.9 cm. The endometrial stripe measured 11 mm. It also showed a right ovarian cyst. Patient has been discharged with nausea medication and oxycodone after her last visit. She has scheduled follow-up with Dr. Osborne gynecology on Sunday. Denies of any abnormal vaginal bleeding. This does not appear surgical at this time. No evidence of urinary tract infection. No current vaginal bleeding or vaginal discharge. CBC showed white blood count of 13 otherwise unremarkable. Last white blood count February 12 showed 11.1. No significant change. chemistry grossly unremarkable. I do believe she needs a follow-up with gynecology for further evaluation. At some point possibly exploratory laparotomy due to this chronic pain. If any worsening symptoms, return back to ED . patient has pain medication at home. Pain controlled at this time. Do not suspect ovarian torsion or appendicitis as patient pain is similar and multiple negative work- ups without any significant changes of lab work. Continue monitoring symptoms. If increasing worsening pain return back to ED for reevaluation. (ELINOR CHAHAL) Impression Primary Impression: RLQ abdominal pain Disposition: HOME, SELF-CARE Condition: Stable Departure-Patient Inst. Decision time for Depature: 22:41 (ELINOR CHAHAL) [place] [facility] [place] Primary Care Physician Patient Instructions: Abdominal Pain, Adult ED Work/School Note: Work Release Form Date Seen in the Emergency Department: Mar 05, 2023 Return to Work: Mar 07, 2023 ATTENDING PHYSICIAN NOTE: I WAS PHYSICALLY PRESENT ER PHYSICIAN, BUT I WAS NOT INVOLVED IN ANY DECISION MAKING OR ANY CARE OF THIS PATIENT AND I AM NOT COLLABORATING PHYSICIAN. (HALIMA RODRIGUEZ DO) ELINOR CHAHAL Mar 05, 2023 21:37 HALIMA RODRIGUEZ DO Mar 08, 2023 01:23
[2023-03-05 21:39] LABS: BASOPHILS % (AUTO) 1 % (0-10); LYMPHOCYTES % (AUTO) 26 % (12-44); MEAN PLATELET VOLUME 10.6 fL (9.0-12.2)
[2023-03-05 21:41] LABS: BASOPHILS # (AUTO) 0.1 10^3/uL (0.0-0.1); EOSINOPHILS # (AUTO) 0.4 10^3/uL (0.0-0.3); EOSINOPHILS % (AUTO) 3 % (0-10); HEMATOCRIT 35 % (35-52); HEMOGLOBIN 11.8 g/dL (11.5-16.0); LYMPHOCYTES # (AUTO) 3.4 10^3/uL (1.0-4.0); MEAN CORPUSCULAR HEMOGLOBIN 28 pg (25-34); MEAN CORPUSCULAR HGB CONC 34 g/dL (32-36); MEAN CORPUSCULAR VOLUME 85 fL (80-99); MONOCYTES # (AUTO) 0.8 10^3/uL (0.0-1.0); MONOCYTES % (AUTO) 6 % (0-12); NEUTROPHILS # (AUTO) 8.3 10^3/uL (1.8-7.8); NEUTROPHILS % (AUTO) 64 % (42-75); PLATELET COUNT 394 10^3/uL (130-400)
[2023-03-05 21:42] LABS: BACTERIA,URINE MODERATE /HPF; WBC,URINE 0-2 /HPF
[2023-03-05] MEDS ORDERED: fentaNYL INJ 100 MCG/2 ML AMP IM STA (21:53)
[2023-03-05 21:59] LABS: ALBUMIN 3.7 GM/DL (3.2-4.5); POTASSIUM 3.6 MMOL/L (3.6-5.0)
[2023-03-05 22:01] LABS: CALCIUM 9.1 MG/DL (8.5-10.1)
[2023-03-05 22:02] LABS: TOTAL PROTEIN 6.9 GM/DL (6.4-8.2)
[2023-03-05 22:03] LABS: BILIRUBIN,TOTAL 0.2 MG/DL (0.1-1.0)
[2023-03-05 22:05] LABS: CREATININE SERUM 0.91 MG/DL (0.60-1.30)
[2023-03-05 23:15] VITALS: BP 141/86
[2023-03-05] MEDS ORDERED: DICYCLOMINE 10 MG/ML (BENTYL) 2 ML AMP IM ONE (23:15)
== END 2023-03-05 23:15 | disposition home or self-care (01) ==
LOC: EDUNIT# 20:48 → ER 20:50
DX: R10.31 Right lower quadrant pain (principal); F17.290 Nicotine dependence, other tobacco product, uncomplicated; Z28.310 Unvaccinated for COVID-19; Z87.42 Personal history of other diseases of the female genital tract
CPT/HCPCS: 36415; 80053; 81000; 84703; 85025; 87088; 99284

== ENCOUNTER 2023-03-08 05:44 | Outpatient (CLI) | payer SELFPAY ==
[~2023-03-08] VITALS: Ht 157.8 cm; Wt 137.3 kg
[2023-03-08] MEDS ORDERED: QUET400T PO (15:04)
[2023-03-08] MEDS ORDERED: STRAT40CAP PO (15:04)
[2023-03-08] MEDS ORDERED: PROM25TA14 PO (15:04)
[2023-03-08] MEDS ORDERED: SERT100T PO (15:04)
[2023-03-08] MEDS ORDERED: OXYC1TAB15 PO (15:04)
[2023-03-08] MEDS ORDERED: LAMO100T69 PO (15:04)
[2023-03-08] MEDS ORDERED: GUAN1TAB21 PO (17:30)
== END 2023-03-08 17:47 | disposition home or self-care (01) ==
LOC: PREOP 05:44
PROVIDERS: ATTEND Obstetrics & Gynecology
DX: Z01.818 Encounter for other preprocedural examination (principal)

== ENCOUNTER 2023-03-09 14:09 | Emergency (ER) | payer OTHER ==
[~2023-03-09] VITALS: Ht 157.4 cm; Wt 136.9 kg
[~2023-03-09 14:09] MED LIST changes: +GUAN1TAB21 PO; +LAMO100T69 PO; +OXYC1TAB15 PO; +PROM25TA14 PO; +QUET400T PO; +SERT100T PO; +STRAT40CAP PO
--- NOTE | 2023-03-09 14:36 | ED GU-Female ---
General Chief Complaint: - Reproductive Stated Complaint: ABD PAIN | OVARIAN PAIN Source: patient Exam Limitations: no limitations History of Present Illness Date Seen by Provider: Mar 09, 2023 Time Seen by Provider: 14:20 Initial Comments Patient is a 27-year-old female with a history of chronic pelvic pain. She presents to the emergency room from work with a chief complaint of worsening of that same pain. Patient states that it is the same quality intensity as prior. She took naproxen approximately 10 or 11 AM. She is nauseous due to the pain. Nothing makes the pain any better or any worse. No associated fever. No abnormal vaginal discharge. She states her last menstrual cycle ended sometime last week and cannot remember the exact date. She is sexually active, not on control prefers female partners. No abnormal bowel movements, black or bloody stools. No dysuria, urgency or frequency. G2, P1. Prior cholecystectomy and . Timing/Duration: this afternoon Severity/Quality: severe, cramping Location: suprapubic (right greater than left) Radiation: back Activities at Onset: other (work) Prior Genitourinary Problems: similar symptoms Sexual [place] History: single partner (female) Associated Symptoms: nausea/vomiting (nausea without vomiting) Allergies and Home Medications Allergies Coded Allergies: ketorolac (Verified Allergy, Unknown, 03/08/23) Patient Home Medication List Home Medication List Reviewed: Yes Guanfacine HCl (Guanfacine HCl) 1 Mg Tablet, 1 MG PO DAILY, (Reported) Entered as Reported by: Rhoda Burnett on 03/08/23 1730 Lamotrigine (Lamictal) 100 Mg Tablet, 100 MG PO DAILY, (Reported) Entered as Reported by: Rhoda Burnett on 03/08/23 1504 Oxycodone HCl/Acetaminophen (Oxycodon-Acetaminophen 7.5-325) 7.5 Mg-325 Mg Tablet, 1 EACH PO Q6H PRN for PAIN-MODERATE, (Reported) Entered as Reported by: Rhoda Burnett on 03/08/23 1504 Quetiapine Fumarate (Seroquel) 400 Mg Tablet, 400 MG PO DAILY, (Reported) Entered as Reported by: Rhoda Burnett on 03/08/23 1504 Sertraline HCl (Zoloft) 100 Mg Tablet, 100 MG PO DAILY, (Reported) Entered as Reported by: Rhoda Burnett on 03/08/23 1504 Discontinued Medications Atomoxetine (Strattera) 40 Mg Cap, 40 MG PO DAILY, (Reported) Discontinued Reason: No Longer Taking Entered as Reported by: Rhoda Burnett on 03/08/23 1504 Cyclobenzaprine HCl (Cyclobenzaprine HCl) 10 Mg Tablet, 10 MG PO Q8H PRN for SPASMS Discontinued Reason: No Longer Taking Prescribed by: HALIMA RODRIGUEZ on 01/09/232208 Cyclobenzaprine HCl (Cyclobenzaprine HCl) 10 Mg Tablet, 10 MG PO TID Discontinued Reason: No Longer Taking Prescribed by: PB AVALOS on 01/16/232139 Escitalopram Oxalate (Lexapro) 20 Mg Tablet, 20 MG PO DAILY, (Reported) Discontinued Reason: No Longer Taking Entered as Reported by: INGA NIELSON on 02/13/18 135 Hydrocodone Bit/Acetaminophen (HYDROcodone/APAP 5 MG/325 MG TAB) 1 Tab Tab, 1 TAB PO Q6H PRN for PAIN-MODERATE (5-7) Discontinued Reason: No Longer Taking Prescribed by: Delfino Lehman on 12/15/22 1754 Hydrocodone/Acetaminophen (Hydrocodone-Acetamin 5-325 mg) 5 Mg-325 Mg Tablet, 1 TAB PO Q4H PRN for PAIN-MODERATE (5-7) Discontinued Reason: No Longer Taking Prescribed by: PB AVALOS on 01/16/232139 Hydrocodone/Acetaminophen (Hydrocodone-Acetamin 5-325 mg) 5 Mg-325 Mg Tablet, 1 TAB PO Q4H PRN for PAIN-MODERATE (5-7) Discontinued Reason: No Longer Taking Prescribed by: PB AVALOS on 01/26/23 1826 Medroxyprogesterone Acetate (Depo-Subq Provera 104) 104 Mg/0.65 Ml Syringe, 104 MG SQ Q 3MO, (Reported) Discontinued Reason: No Longer Taking Entered as Reported by: INGA NIELSON on 02/13/18 1354 Metronidazole (Metronidazole) 500 Mg Tablet, 500 MG PO BID Discontinued Reason: No Longer Taking Prescribed by: PB AVALOS on 01/26/23 182 Metronidazole (Metronidazole) 500 Mg Tablet, 500 MG PO BID Discontinued Reason: No Longer Taking Prescribed by: ELINOR GUERRERO on 02/20/23 0659 Morphine Sulfate (Morphine Sulfate IR Tablet) 15 Mg Tablet, 15 MG PO TID PRN for PAIN-SEVERE (8-10) Discontinued Reason: No Longer Taking Prescribed by: MEGGAN DEAL on 08/28/20 1536 Naproxen (Naproxen) 500 Mg Tablet.dr, 500 MG PO BID Discontinued Reason: No Longer Taking Prescribed by: HALIMA RODRIGUEZ on 01/09/232208 Nitrofurantoin Monohyd/M-Cryst (Macrobid 100 mg Capsule) 100 Mg Capsule, 1 TAB PO BID Discontinued Reason: No Longer Taking Prescribed by: HALIMA RODRIGUEZ on 01/29/23102 Phenazopyridine HCl (Pyridium) 200 Mg Tablet, 1 TAB PO TID Discontinued Reason: No Longer Taking Prescribed by: HALIMA RODRIGUEZ on 01/29/23102 Promethazine HCl (Promethazine Tablet) 25 Mg Tablet, 25 MG PO Q4H PRN for NAUSEA/VOMITING, (Reported) Discontinued Reason: No Longer Taking Entered as Reported by: Rhoda Burnett on 03/08/23 1504 [Propranolol] , (Reported) Discontinued Reason: No Longer Taking Entered as Reported by: AJ ZARCO on 08/28/20 1552 [Seroquel] , (Reported) Discontinued Reason: No Longer Taking Entered as Reported by: AJ ZARCO on 08/28/20 155 Review of Systems Review of Systems Constitutional: see HPI EENTM: no symptoms reported Respiratory: no symptoms reported Cardiovascular: no symptoms reported Gastrointestinal: abdominal pain Genitourinary: no symptoms reported LMP: Feb 28, 2023 Musculoskeletal: no symptoms reported All Other Systemes Reviewed Negative Unless Noted: Yes Past Zytykvx-Zweyve-Ilrzdc Hx Immunizations Up To Date Tetanus Booster (TDap): Unknown PED Vaccines UTD: Yes First/Initial COVID19 Vaccinat: NA Second COVID19 Vaccination [place]: NA Third COVID19 Vaccination Date: NA Seasonal Allergies Seasonal Allergies: Yes Past Medical History Surgery/Hospitalization HX: ANXIETY, RIGHT OVARIAN CYST, GERD, DEPRESSION C SECT, JACOB Surgeries: Yes ( X 1; CHOLECYSTECTOMY) Section, Gallbladder Respiratory: No Cardiac: No Neurological: Yes Headaches /Migraines Reproductive Disorders: No Female Reproductive Disorders: Denies Sexually Transmitted Disease: No HIV/AIDS: No Genitourinary: No Gastrointestinal: Yes (S/P JACOB) Gastroesophageal Reflux, Chronic Constipation, Gall Bladder Disease Musculoskeletal: Yes (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 0.0oz. 124.672514xf; 55.13 BMI Method:Stated General Appearance: WD/WN, mild distress HEENT: PERRL/EOMI Neck: full range of motion Cardiovascular: regular rate, rhythm Respiratory: lungs clear, normal breath sounds, no respiratory distress, no accessory muscle use Gastrointestinal: soft, tenderness (mild tenderness right greater than left) Extremities: normal range of motion, non-tender, normal inspection, no pedal edema, no calf tenderness Neurologic/Psychiatric: alert, normal mood/affect, oriented x 3 Skin: normal color, warm/dry Progress/Results/Core Measures Suspected Sepsis SIRS Temperature: Pulse: Respiratory Rate: Blood Pressure / Mean: Results/Orders Lab Results Laboratory Tests Test 03/09/23 14:58 Range/Units Urine Color YELLOW Urine Clarity SL CLOUDY Urine pH 6.0 5-9 Urine Specific Prue 1.025 H 1.016-1.022 Urine Protein NEGATIVE NEGATIVE Urine Glucose (UA) NEGATIVE NEGATIVE Urine Ketones NEGATIVE NEGATIVE Urine Nitrite NEGATIVE NEGATIVE Urine Bilirubin NEGATIVE NEGATIVE Urine Urobilinogen 0.2 < = 1.0 MG/DL Urine Leukocyte Esterase NEGATIVE NEGATIVE Urine RBC (Auto) NEGATIVE NEGATIVE Urine RBC NONE /HPF Urine WBC NONE /HPF Urine Squamous Epithelial Cells 10-25 H /HPF Urine Crystals NONE /LPF Urine Bacteria MODERATE H /HPF Urine Casts NONE /LPF Urine Mucus NEGATIVE /LPF Urine Culture Indicated NO My Orders Orders - DAKOTAH GODINEZ MD Ua Culture If Indicated (03/09/23 14:46) Urine Bedside (03/09/23 14:46) Droperidol Inj (Ed Only) (Inapsine Inj ( (03/09/23 15:00) Diphenhydramine Injection (Benadryl Inje (03/09/23 15:00) Oxycodone/Apap 5/325mg Tablet (Percocet (03/09/23 16:00) Oxycodone/Apap 5/325mg Tablet (Percocet (03/09/23 15:53) Medications Given in ED Current Medications Medications Dose Ordered Sig/Tiffanie Route Start Time Stop Time Status Last Admin Dose Admin Diphenhydramine HCl 25 mg ONCE ONCE IVP 03/09/23 15:00 03/09/23 15:01 DC 03/09/23 15:06 25 MG Droperidol 2.5 mg ONCE ONCE IV 03/09/23 15:00 03/09/23 15:01 DC 03/09/23 15:06 2.5 MG Oxycodone/ Acetaminophen 1 tab ONCE ONCE PO 03/09/23 16:00 03/09/23 16:01 03/09/23 15:56 1 TAB Vital Signs/I&O 03/09/23 14:20 Pulse 113 B/P (MAP) 168/128 (141) Pulse Ox 98 O2 Delivery Room Air Capillary Refill : Departure Impression Primary Impression: Chronic pelvic pain in female Disposition: 01 HOME, SELF-CARE Condition: Improved Departure-Patient Inst. Decision time for Depature: 15:50 Referrals: ANDREW OSBORNE DO (PCP/Family) Primary Care Physician Patient Instructions: Pelvic Pain Add. Discharge Instructions: drink plenty of fluids to stay well hydrated. Continue the Naproxen on a scheduled basis. Take 2 pills twice a day with food. Nausea medications as needed every 8 hours. Keep your scheduled follow up with Dr Osborne for surgery next week. Return to the Emergency Department for any new, emergent or concerning symptoms. Work/School Note: Work Release Form Date Seen in the Emergency Department: Mar 09, 2023 Return to Work: Mar 10, 2023 Copy Copies To 1: ANDREW OSBORNE KATHRYN M MD Mar 09, 2023 14:36
[2023-03-09] MEDS ORDERED: diphenhydrAMINE 50 MG/ML INJ (BENADRYL) IVP ONE (15:00)
[2023-03-09] MEDS ORDERED: DROPERIDOL 5 MG/2 ML (INAPSINE) ED ONLY! IV ONE (15:00)
[2023-03-09 15:08] LABS: BILIRUBIN,URINE NEGATIVE (NEGATIVE); CLARITY,URINE SL CLOUDY; COLOR,URINE YELLOW; GLUCOSE, URINE (UA) NEGATIVE (NEGATIVE); KETONES,URINE NEGATIVE (NEGATIVE); LEUKOCYTE ESTERASE ,URINE NEGATIVE (NEGATIVE); NITRITE,URINE NEGATIVE (NEGATIVE); PROTEIN,URINE NEGATIVE (NEGATIVE)
[2023-03-09 15:17] LABS: BACTERIA,URINE MODERATE /HPF
[2023-03-09] MEDS ORDERED: oxyCODONE/APAP 7.5-325 MG (PERCOCET 7.5) TABLET PO ONE (15:45)
[2023-03-09] MEDS ORDERED: oxyCODONE/APAP 5/325MG (PERCOCET 5) TABLET ONE (15:53)
[2023-03-09] MEDS ORDERED: oxyCODONE/APAP 5/325MG (PERCOCET 5) TABLET PO ONE (16:00)
[2023-03-09 16:12] VITALS: BP 124/94
== END 2023-03-09 16:12 | disposition home or self-care (01) ==
LOC: EDUNIT# 14:09 → ER 14:11
DX: R10.2 Pelvic and perineal pain (principal); G89.29 Other chronic pain; Z90.49 Acquired absence of other specified parts of digestive tract; Z28.310 Unvaccinated for COVID-19
CPT/HCPCS: 81000; 84703

== ENCOUNTER 2023-03-13 08:30 | Day surgery (SDC) | payer OTHER ==
[2023-03-13] VITALS (13 sets, daily range): BP systolic 112–142; BP diastolic 72–97
[2023-03-13] MEDS ORDERED: fentaNYL INJ 100 MCG/2 ML AMP IV ONE (09:15)
[2023-03-13] MEDS ORDERED: MIDAZOLAM 2 MG/2 ML (VERSED) VIAL IV ONE (09:15)
[2023-03-13] MEDS ORDERED: ceFAZolin INJECTION 1,000 MG in NS (IVPB) 50 ML IV ONE (09:30)
[2023-03-13 09:46] LABS: BASOPHILS # (AUTO) 0.1 10^3/uL (0.0-0.1); BASOPHILS % (AUTO) 1 % (0-10); EOSINOPHILS # (AUTO) 0.2 10^3/uL (0.0-0.3); EOSINOPHILS % (AUTO) 3 % (0-10); HEMATOCRIT 37 % (35-52); HEMOGLOBIN 12.2 g/dL (11.5-16.0); LYMPHOCYTES % (AUTO) 24 % (12-44); MEAN CORPUSCULAR HEMOGLOBIN 28 pg (25-34); MEAN CORPUSCULAR HGB CONC 33 g/dL (32-36); MEAN CORPUSCULAR VOLUME 86 fL (80-99); MEAN PLATELET VOLUME 9.9 fL (9.0-12.2); MONOCYTES # (AUTO) 0.6 10^3/uL (0.0-1.0); MONOCYTES % (AUTO) 7 % (0-12); NEUTROPHILS # (AUTO) 5.6 10^3/uL (1.8-7.8); NEUTROPHILS % (AUTO) 66 % (42-75); PLATELET COUNT 419 10^3/uL (130-400); WHITE BLOOD COUNT 8.5 10^3/uL (4.3-11.0)
[2023-03-13] MEDS: LACTATED RINGERS 1,000 ML IV PRN ×2 (09:46→14:01)
[2023-03-13] MEDS ORDERED: BUPIVACAINE 0.25% 30 ML (SENSORCAINE) VIAL ONE (10:31)
[2023-03-13] MEDS ORDERED: MIDAZOLAM 2 MG/2 ML (VERSED) VIAL ONE (10:51)
[2023-03-13] MEDS ORDERED: fentaNYL INJ 100 MCG/2 ML AMP ONE (10:51)
--- NOTE | 2023-03-13 11:38 | Progress Note-Pre Operative ---
Pre-Operative Progress Note Date of Available H&P: Mar 13, 2023 Date H&P Reviewed: Mar 13, 2023 Time H&P Reviewed: 11:35 History & Physical: H&P Reviewed, Patient Examed, No changes noted Pre-Operative Diagnosis: CPP, Acute worsening pelvic pain ANDREW MCDOWELL DO Mar 13, 2023 11:38
[2023-03-13] MEDS ORDERED: ONDANSETRON 4 MG/2 ML (SDV) Z0FRAN IVP PRN ×2 (11:45→13:15)
[2023-03-13] MEDS ORDERED: HYDROcodone/APAP 5 MG/325 MG (LORTAB) TAB PO PRN (11:45)
[2023-03-13] MEDS ORDERED: D5 LR IV SOLUTION 1,000 ML IV SCH (11:45)
--- NOTE | 2023-03-13 11:47 | Discharge Inst-Women's Service ---
Discharge Inst-Women's Serv Depart Medication/Instructions New, Converted or Re-Newed RX: Transmitted to Pharmacy Problems Reviewed?: Yes Consults/Follow Up Additional Follow Up: Yes Activity Activity: Activity as Tolerated Driving Instructions: No Driving for 1 Week NO SMOKING: NO SMOKING Nothing Inside Vagina: No Douching, No [place], No Tampons Diet Discharge Diet: No Restrictions Symptoms to Report to : Bleeding Excessive, Pain Increased, Fever Over 101 Degrees F, Vaginal Bleeding Increase, Questions/Concerns For Any Problems or Questions: Contact Your Physician Skin/Wound Care Infection Signs and Symptoms: Increased Redness, Foul Odor of Wound, Increased Drainage, Skin Itchy or Has a Rash, Increased Swelling, Temperature Above 101 F Operative Area Clean and Dry: Keep Incision Clean/Dry Stitches/[place]/Dermabond: Dermabond, Care of Stitches Bathing Instructions: ANDREW Plunkett DO Mar 13, 2023 11:47
[2023-03-13] MEDS ORDERED: DOCU-143 PO (11:48)
[2023-03-13] MEDS ORDERED: IBUP-844 PO (11:48)
[2023-03-13] MEDS ORDERED: ACHD5005 PO (11:48)
[2023-03-13] MEDS ORDERED: IBUPROFEN 600 MG (MOTRIN) TAB PO SCH (12:00)
[2023-03-13] MEDS ORDERED: LIDOCAINE PF 2% 5 ML (XYLOCAINE) VIAL ONE (12:14)
[2023-03-13] MEDS ORDERED: ROCURONIUM 50 MG/5 ML (ZEMURON) VIAL IV ONE (12:14)
[2023-03-13] MEDS ORDERED: SEVOFLURANE (ULTANE) 15 ML INHAL SOLN ONE (12:14)
[2023-03-13] MEDS ORDERED: diphenhydrAMINE 50 MG/ML INJ (BENADRYL) ONE (12:14)
[2023-03-13] MEDS ORDERED: ONDANSETRON 4 MG/2 ML (SDV) Z0FRAN ONE (12:14)
[2023-03-13] MEDS ORDERED: proPOfol 200 MG/20 ML (DIPRIVAN) VIAL IV ONE (12:14)
[2023-03-13] MEDS ORDERED: SUGAMMADEX 500 MG/5 ML VIAL (BRIDION) IV ONE (12:40)
[2023-03-13] MEDS ORDERED: RT-ALBUTEROL SULF 2.5 MG/3 ML PRE-MIX VIAL ONE (13:01)
[2023-03-13] MEDS ORDERED: HYDROmorphone 2 MG/ML VIAL (DILAUDID) ONE (13:04)
[2023-03-13] MEDS ORDERED: HYDROmorphone 2 MG/ML VIAL (DILAUDID) IV ONE (13:15)
[2023-03-13] MEDS ORDERED: RT-ALBUTEROL SULF 2.5 MG/3 ML PRE-MIX VIAL INH ONE (13:15)
--- NOTE | 2023-03-13 15:08 | Anesthesia-General Post-Op ---
General Patient Condition Mental Status/LOC: Same as Preop Cardiovascular: Satisfactory Nausea/Vomiting: Absent Respiratory: Satisfactory Pain: Controlled Complications: Absent Post Op Complications Complications None Follow Up Care/Instructions Patient Instructions None needed. Anesthesia/Patient Condition Patient Condition Patient is doing well, no complaints, stable vital signs, no apparent adverse anesthesia problems. No complications reported per nursing. D/C home per [facility] Criteria: Yes BLAIR HARRISON CRNA Mar 13, 2023 15:08
[2023-03-13] MEDS ORDERED: HYDROcodone/APAP 5 MG/325 MG (LORTAB) TAB ONE (15:26)
--- NOTE | 2023-03-13 22:12 | OPERATIVE REPORT ---
DATE OF SERVICE: 03/13/2023 PREOPERATIVE DIAGNOSES: A 27-year-old female with chronic pelvic pain. POSTOPERATIVE DIAGNOSES: A 27-year-old female with chronic pelvic pain, endometriosis implants and filmy and dense adhesions of the pelvic peritoneum. PROCEDURE: Laparoscopic cauterization of endometriosis implants and lysis of adhesions. SURGEON: Andrew Mcdowell DO ANESTHESIA: LMA general. ESTIMATED BLOOD LOSS: Minimal. URINE OUTPUT: 50 mL clear at the end of the procedure. FLUIDS: 800 mL lactated Ringer's solution. FINDINGS: Grossly normal-appearing external female genitalia, grossly normal-appearing right ovary and right fallopian tube. Left fallopian tube and ovary are adhesed to the ovarian fossa with dense adhesions. There was also filmy adhesions of the vesicouterine peritoneum with the anterior uterus being adhesed to the anterior abdominal wall with filmy adhesions. SPECIMEN SENT: None. INDICATIONS FOR PROCEDURE: This 26-year-old female is the patient who sought care in my office after being exhausted with other options and seeking emergency room department care without any alleviation of her pain. 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 She denies change in sexual partners. Denies history of STDs. I discussed with the patient diagnostic laparoscopy as imaging studies and everything else has been negative thus far. Risk of laparoscopy discussed with the patient in detail and after all of her questions were answered with her significant other present, consent was obtained, the patient was taken to the operating room. OPERATIVE DESCRIPTION IN DETAIL: Once in the operating room, anesthesia was found to be adequate, was placed in dorsal lithotomy position, prepped and draped in normal sterile fashion. A Castro catheter was placed using sterile technique. A timeout was performed. A Graves speculum inserted to the patient's vagina, which allows me to visualize the cervix, which I grasped at 12 o'clock position using a long Allis clamp. I then gently sound the uterine cavity, depth was found to be 8 cm. I placed a Epy.ioer uterine manipulator to a depth of 8 cm deploying the balloon within the uterus and removed all the instruments from the patient's vagina, performed change of gloves. I turned my attention to the abdomen where subcostally at the midclavicular line, I introduced the Veress needle through the skin until intraperitoneal placement was confirmed using a saline drop test and opening pressure of 5 mmHg was noted. I proceeded with CO2 insufflation to maximum pressure of 15 mmHg, at which point I make a 5 mm infraumbilical incision. I direct a 5 mm trocar through the incision until intraperitoneal placement was confirmed with laparoscope. There was no evidence of damage from entry site. A brief scan of the upper abdominal anatomy appears grossly normal. There was no evidence of damage upon my Veress entry site and the Veress needle was removed at that point. I then the had patient was placed in steep Trendelenburg, where I am able to visualize all my pelvic anatomy as defined in my findings above. I placed suprapubic trocar. This is a 5 mm trocar, it was placed in similar fashion with direct visualization laparoscope. Once this was in place, I performed cauterization, all visualized endometriosis implants including vesicouterine peritoneum, uterosacral ligaments bilaterally, the ovarian fossa on the left and on the left pelvic sidewall just lateral to the IP ligament. Once these were all cauterized and take down the filmy and dense adhesions, this was done by both blunt traction and cautery. Once the left ovary was freed up, the ovarian fossa visualized and freed and there was free movement of the left ovary. I also free up the vesicouterine peritoneum adhesions as well. Afterwards, I copiously irrigated the pelvis using normal saline. Once again, there was active bleeding noted from any of my dissection planes. I then had the patient taken out of steep Trendelenburg where I removed the suprapubic trocar under direct visualization laparoscope and infraumbilical trocars left in place to release the remainder of the insufflation and introduced 10 mL of 0.25% Marcaine in the peritoneal cavity for postoperative pain management. I then removed this trocar as well. The skin reapproximated using Dermabond. Castro catheter was removed. Kronner uterine manipulator was removed at the end of the procedure. The patient tolerated the procedure well and was taken to recovery area in stable condition. Lap and sponge counts were correct at the end of the procedure. Instrument counts correct as well. Job ID: [id number] DocumentID: [id number] Dictated Date: 03/13/2023 13:08:54 Enterprise Application Administrator Date: 03/13/2023 22:10:00 Dictated By: ANDREW MCDOWELL DO
== END 2023-03-13 17:30 | disposition home or self-care (01) ==
LOC: SDC 08:30
PROVIDERS: ATTEND Obstetrics & Gynecology
DX: N80.9 Endometriosis, unspecified (principal); N73.6 Female pelvic peritoneal adhesions (postinfective); G89.29 Other chronic pain; E66.01 Morbid (severe) obesity due to excess calories; F17.290 Nicotine dependence, other tobacco product, uncomplicated; F17.210 Nicotine dependence, cigarettes, uncomplicated; Z68.43 Body mass index [BMI] 50.0-59.9, adult; Z28.310 Unvaccinated for COVID-19; Z80.41 Family history of malignant neoplasm of ovary
CPT/HCPCS: 36415; 84703; 85025; 86850; 86900; 86901; 87081